=== PATIENT | female | born 1940 | race Caucasian/White ===

== ENCOUNTER 2019-06-28 08:53 | Emergency (ER) | payer OTHER ==
--- OUTSIDE RECORDS SUMMARY | 2019-06-28 08:55 | XMS REPORT | Summary of Care ---
:1940 Author Name RICK HOYOS M.D. Address Unavailable Unavailable , Care Team Providers Name Role Phone RICK HOYOS M.D. Unavailable Unavailable SOHA PAIGE LA, RICK Lopez Unavailable Unavailable Unavailable Unavailable Unavailable Functional Status Name Dates Details Functional status health issues are not documented Status: Name Dates Details Cognitive status health issues are not documented Status: Problems Name Dates Details Postoperative hypothyroidism (244.0, E89.0) Status: Active Dyslipidemia (272.4, E78.5) Status: Active Medication management (V58.69, Z79.899) Status: Active Anemia (285.9, D64.9) Status: Active Hypothyroidism (244.9, E03.9) Status: Active Medications Name Dates Details FLUoxetine HCl - 20 MG Oral Tablet Refills: 0 Active Irbesartan TABS Refills: 0 Active Feosol TABS Refills: 0 Active Caltrate 600+D3 Soft CHEW Refills: 0 Active Aspirin TABS Refills: 0 Active Synthroid TABS Refills: 0 Active Liothyronine Sodium 5 MCG Oral Tablet Refills: 0 Active Rosuvastatin Calcium 10 MG Oral Tablet Refills: 0 Active Fenofibric Acid TABS Refills: 0 Active Feosol TABS Refills: 0 Active Vitamin C CAPS Refills: 0 Active Vitamin D-3 CAPS Refills: 0 Active FLUoxetine HCl - 20 MG Oral Capsule TAKE 1 CAPSULE AT BEDTIME Quantity: 90 Refills: 1 RICK HOYOS M.D. Start : 16-May-2018 Active Levothyroxine Sodium 125 MCG Oral Tablet TAKE 1 TABLET DAILY ONE HOUR BEFORE EATING BREAKFAST Quantity: 90 Refills: 1 RICK HOYOS M.D. Start : 16-May-2018 Active Liothyronine Sodium 5 MCG Oral Tablet TAKE 1 TABLET DAILY Quantity: 90 Refills: 1 RICK HOYOS M.D. Start : 01-Oct-2018 Active Rosuvastatin Calcium 10 MG Oral Tablet TAKE 1 TABLET DAILY. Quantity: 90 Refills: 1 RICK HOYOS M.D. Start : 16-May-2018 Active Fenofibric Acid 135 MG Oral Capsule Delayed Release TAKE 1 TABLET BY MOUTH DAILY Quantity: 90 Refills: 1 RICK HOYOS M.D. Start : 16-May-2018 Active Irbesartan-hydroCHLOROthiazide 150-12.5 MG Oral Tablet TAKE 1 TABLET DAILY Quantity: 90 Refills: 0 RICK HOYOS M.D. Start : 16-May-2018 Active Allergies and Adverse Reactions Name Dates Details No Known Drug Allergies (Allergy) Status: Active Past Medical History Name Dates Details History of depression (V11.8, Z86.59) Status: Resolved History of hay fever (V12.69, Z87.09) Status: Resolved History of hemorrhoids (V13.89, Z87.19) Status: Resolved History of hypertension (V12.59, Z86.79) Status: Resolved History of lung disease (V12.60, Z87.09) Status: Resolved History of thyroid disorder (V12.29, Z86.39) Status: Resolved Procedures Procedure Dates Details History of Thyroidectomy Completed History of Hysterectomy total Completed History of Hemorrhoidectomy Completed History of Lung lobectomy Completed Immunization Name Dates Details Immunizations not documented Family History Name Dates Details Family history of Heart trouble (429.9, I51.9) Comments: Family History Status: Active Family history of hypertension (V17.49, Z82.49) Comments: Family History Status: Active Family history of malignant neoplasm (V16.9, Z80.9) Comments: Family History Status: Active Family history of cerebrovascular accident (CVA) (V17.1, Z82.3) Comments: Family History Status: Active Social History Name Dates Details Unknown if ever smoked Vital Signs Date Test Result Details No Known Vitals to report Results Date Description Value Details Results not documented Plan of Care Name Dates Details Planned Observations Planned Goals not documented Planned Encounters Appointment; RICK HOYOS M.D. On: 14-May-2019 8:00 Interventions Provided Medication ChangesIrbesartan-hydroCHLOROthiazide 150-12.5 MG Oral Tablet - Renew Instructions Name Dates Details Instructions not documented Encounters Appointment; RICK HOYOS M.D. On: 15-May-2018 7:45 Encounter Diagnosis: Problem not documented Appointment; RICK HOYOS M.D. On: 15-May-2018 9:00 Encounter Diagnosis: Problem not documented Appointment; RICK HOYOS M.D. On: 11-Sep-2018 9:00 Encounter Diagnosis: Problem not documented
[2019-06-28] MEDS ORDERED: PANTOPRAZOLE 40 MG INJ ONE (09:10)
[2019-06-28] MEDS ORDERED: NA CHLORIDE 0.9% 1,000 ML ONE (09:10)
[2019-06-28 09:18] LABS: Absolute Lymphocytes (CBC) 1.1 K/uL (0.7-4.9); Basophils % 0.6 % (0-1.3); Hematocrit 16.5 % (36.0-45.0); Lymphocytes % 14.2 % (15.3-44.8); MPV 9.2 fL (7.6-11.3); RBC Red Blood Cell Count 1.92 M/uL (3.86-4.86)
[2019-06-28 09:25] LABS: Protime INR 1.22
[2019-06-28 09:36] LABS: ALT/SGPT 18 U/L (12-78); AST/SGOT 15 U/L (15-37); Alkaline Phosphatase 24 U/L (45-117); BUN Blood Urea Nitrogen 70 mg/dL (7-18); Bicarbonate 22 mmol/L (21-32); Bilirubin Direct < 0.1 mg/dL (0-0.2); Bilirubin Total 0.2 mg/dL (0.2-1.0); Glucose Level 115 mg/dL (74-106); Magnesium 1.9 mg/dL (1.8-2.4); NT PRO-BNP 523 pg/mL (<450); Potassium 3.4 mmol/L (3.5-5.1); Protein, Total 5.6 g/dL (6.4-8.2); Sodium Level 140 mmol/L (136-145); Troponin (Emerg Dept Use Only) 0.02 ng/mL (0.0-0.045)
--- NOTE | 2019-06-28 09:38 | RAD REPORT ---
EXAM DESCRIPTION: [facility] Single View06/28/2019 9:21 am CLINICAL HISTORY: Chest pain COMPARISON: 2012 FINDINGS: Mild right upper lobe opacities are without significant change probably scarring The lungs appear clear of acute infiltrate. The heart is normal size IMPRESSION: No acute abnormalities displayed
[2019-06-28] MEDS ORDERED: PANTOPRAZOLE INJ 80 MG in NA CHLORIDE 0.9% 250 ML IV SCH (10:00)
--- NOTE | 2019-06-28 10:18 | RAD REPORT ---
EXAM DESCRIPTION: CT - Abdomen Pelvis W Contrast - 06/28/2019 10:00 am CLINICAL HISTORY: Abdominal pain/rectal bleeding COMPARISON: none. TECHNIQUE: Computed axial tomography of the abdomen pelvis was obtained. 100 cc Isovue-300 was admin istered intravenously. Oral contrast was not requested which limits evaluation of bowel. All CT scans are performed using dose optimization technique as appropriate and may include automated exposure control or mA/KV adjustment according to patient size. FINDINGS: The liver, spleen, pancreas, and adrenal appear unremarkable. Small renal cysts. There is no evidence of diverticulitis. Normal appendix Moderate hiatal hernia Cholecystectomy. Hysterectomy. Small umbilical hernia IMPRESSION: No acute abnormality is displayed.
--- NOTE | 2019-06-28 10:39 | EDPHYS ---
Physician Documentation [facility] Name: Aurea Londono Age: 78 yrs Sex: Female : 1940 Arrival Date: 06/28/2019 Time: 08:54 Bed 4 Private MD: ED Physician Raul Peoples HPI: 06/28 09:01 This 78 yrs old Female presents to ER via Unassigned with complaints of kdr Rectal Bleeding. 09:01 The patient presents to the emergency department with bleeding from the rectum/anus, kdr that is moderate. Onset: The symptoms/episode began/occurred suddenly, at 03:30. Context: the patient has no known special context relating to the rectal area complaint(s). Modifying factors: The symptoms are alleviated by nothing, The symptoms are aggravated by nothing. Associate signs and symptoms: Pertinent positives: abdominal pain in the abdomen diffusely, lower GI bleeding, dark red, vomiting, stomach contents, Pertinent negatives: fever. The patient has not experienced similar symptoms in the past. The patient has not recently seen a physician. 09:01 The patient states that she has been through multiple medical problems and has never kdr felt this bad before. States that she feels weak and nauseated. She also c/o chest pain and pain across her shoulders. 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 - Social history:: Smoking status: Patient/guardian denies using tobacco. - Ebola Screening: : No symptoms or risks identified at this time. ROS: 09:01 Constitutional: Negative for fever, chills, and weight loss, Eyes: Negative for injury, kdr pain, redness, and discharge, ENT: Negative for injury, pain, and discharge, Neck: Negative for injury, pain, and swelling, Cardiovascular: Negative for chest pain, palpitations, and edema, Respiratory: Negative for shortness of breath, cough, wheezing, and pleuritic chest pain, Back: Negative for injury and pain, : Negative for injury, bleeding, discharge, and swelling, MS/Extremity: Negative for injury and deformity, Skin: Negative for injury, rash, and discoloration, Neuro: Negative for headache, weakness, numbness, tingling, and seizure activity. Psych: Negative for depression, anxiety, suicide ideation, homicidal ideation, and hallucinations, Allergy/Immunology: Negative for hives, rash, and allergies, Endocrine: Negative for neck swelling, polydipsia, polyuria, polyphagia, and marked weight changes, Hematologic/Lymphatic: Negative for swollen nodes, abnormal bleeding, and unusual bruising. 09:01 Abdomen/GI: Positive for abdominal pain, nausea and vomiting, abdominal cramps, rectal pain, rectal bleeding. Exam: 09:01 Constitutional: This is a well developed, well nourished patient who is awake, alert, kdr and in no acute distress. Head/Face: Normocephalic, atraumatic. Eyes: Pupils equal round and reactive to light, extra-ocular motions intact. Lids and lashes normal. Conjunctiva and sclera are non-icteric and not injected. Cornea within normal limits. Periorbital areas with no swelling, redness, or edema. Neck: Trachea midline, no thyromegaly or masses palpated, and no cervical lymphadenopathy. Supple, full range of motion without nuchal rigidity, or vertebral point tenderness. No Meningismus. Chest/axilla: Normal chest wall appearance and motion. Nontender with no deformity. No lesions are appreciated. Cardiovascular: Regular rate and rhythm with a normal S1 and S2. No gallops, murmurs, or rubs. Normal PMI, no JVD. No pulse deficits. Respiratory: Lungs have equal breath sounds bilaterally, clear to auscultation and percussion. No rales, rhonchi or wheezes noted. No increased work of breathing, no retractions or nasal flaring. Back: No spinal tenderness. No costovertebral tenderness. Full range of motion. Skin: Warm, dry with normal turgor. Normal color with no rashes, no lesions, and no evidence of cellulitis. MS/ Extremity: Pulses equal, no cyanosis. Neurovascular intact. Full, normal range of motion. Neuro: Awake and alert, GCS 15, oriented to person, place, time, and situation. Cranial nerves II-XII grossly intact. Motor strength 5/5 in all extremities. Sensory grossly intact. Cerebellar exam normal. Normal gait. Psych: Awake, alert, with orientation to person, place and time. Behavior, mood, and affect are within normal limits. 09:01 Abdomen/GI: Inspection: abdomen appears normal, Bowel sounds: diminished, in all quadrants, Palpation: soft, nontender, in all quadrants, Rectal exam: rectal tone normal, Stool: grossly bloody, guaiac positive, hemorrhoid(s), external, with pain. Vital Signs: 09:00 BP 126 / 55; Pulse 109; Resp 18; Temp 98; Pulse Ox 100% ; sv 09:30 BP 132 / 52; Pulse 96; Resp 13; Pulse Ox 100% ; sv 10:29 BP 117 / 48; Pulse 106; Resp 12; Pulse Ox 100% ; sv 11:00 BP 115 / 58; Pulse 103; Resp 15; Pulse Ox 100% ; sv 12:03 BP 119 / 51; Pulse 106; Resp 12; Pulse Ox 100% ; sv 12:24 Temp 98.1; em1 13:00 BP 105 / 48; Pulse 112; Resp 19; Pulse Ox 100% ; sv 13:20 BP 107 / 53; Pulse 110; Resp 12; Temp 98.9; Pulse Ox 100% on R/A; sv 13:30 BP 104 / 52; Pulse 109; Resp 13; Temp 98.5; Pulse Ox 100% on R/A; sv MDM: 09:01 Data reviewed: vital signs, nurses notes, lab test result(s), EKG, radiologic studies. kdr Counseling: I had a detailed discussion with the patient and/or guardian regarding: the historical points, exam findings, and any diagnostic results supporting the discharge/admit diagnosis, lab results, radiology results, the need to transfer to another facility. 10:39 Patient medically screened. kdr 06/28 08:58 Order name: Basic Metabolic Panel kdr 06/28 08:58 Order name: CBC with Diff kdr 06/28 08:58 Order name: LFT's kdr 06/28 08:58 Order name: Magnesium kdr 06/28 08:58 Order name: NT PRO-BNP kdr 06/28 08:58 Order name: PT-INR kdr 06/28 08:58 Order name: Troponin (emerg Dept Use Only) kdr 06/28 08:58 Order name: Type And Screen kdr 06/28 09:30 Order name: CBC with Automated Diff; Complete Time: 10:34 EDMS 06/28 09:31 Order name: Protime (+INR); Complete Time: 10:34 EDMS 06/28 09:36 Order name: Basic Metabolic Panel; Complete Time: 10:34 EDMS 06/28 09:36 Order name: Liver (Hepatic) Function; Complete Time: 10:34 EDMS 06/28 09:36 Order name: Troponin (Emerg Dept Use Only); Complete Time: 10:34 EDMS 06/28 09:36 Order name: NT PRO-BNP; Complete Time: 10:34 EDMS 06/28 08:58 Order name: XRAY Chest (1 view) kdr 06/28 08:58 Order name: EKG; Complete Time: 09:01 kdr 06/28 08:58 Order name: Cardiac monitoring; Complete Time: 09:17 kdr 06/28 08:59 Order name: CT Abd/Pelvis - IV Contrast Only kdr 06/28 09:36 Order name: Magnesium; Complete Time: 10:34 EDPR 06/28 09:42 Order name: Occult Blood--Ancillary eb 06/28 09:42 Order name: RAD; Complete Time: 10:34 EDMS 06/28 09:50 Order name: Type and Screen EDPR 06/28 10:13 Order name: ABO/RH no charge; Complete Time: 10:34 EDMS 06/28 10:19 Order name: CT; Complete Time: 10:34 EDMS 06/28 10:35 Order name: PRBC kdr 06/28 11:28 Order name: Occult Blood--Ancillary; Complete Time: 11:35 EDMS 06/28 08:58 Order name: EKG - Nurse/Tech; Complete Time: 09:17 kdr 06/28 08:58 Order name: IV Saline Lock; Complete Time: 09:17 kdr 06/28 08:58 Order name: Labs collected and sent; Complete Time: 09:17 kdr 06/28 08:58 Order name: O2 Per Protocol; Complete Time: 09:17 kdr 06/28 08:58 Order name: O2 Sat Monitoring; Complete Time: 09:18 kdr 06/28 09:33 Order name: Labs - recollect needed: ABO RH no charge; Complete Time: 10:08 eb Administered Medications: 09:16 Drug: NS 0.9% 500 ml Route: IV; Rate: bolus; Site: right hand; sv 10:00 Follow up: Response: No adverse reaction; IV Status: Completed infusion; IV Intake: sv 500ml 09:16 Drug: ProTONIX 80 mg Route: IVP; Site: right hand; sv 10:12 Follow up: Response: No adverse reaction sv 10:12 Drug: ProTONIX 8 mg/hr Route: IV; Rate: 25 ml/hr; Site: right hand; sv 15:00 Follow up: Response: No adverse reaction; IV Status: Infusion continued upon transfer sv 13:52 Drug: Zofran 4 mg Route: IVP; Site: right hand; sv 14:20 Follow up: Response: No adverse reaction; Marked relief of symptoms; Nausea is decreasedsv Point of Care Testing: Guaiac: 09:00 Stool Guaiac: Positive; Stool Hemoccult Control: Pass; sv 09:[address] Peoples sv Disposition: 06/28/19 10:[address] [facility]. Diagnosis is Lower GI BLeed. - Reason for transfer: Higher level of care. - Accepting physician is [facility]. - Condition is Fair. - Problem is new. - Symptoms have improved. Signatures: Dispatcher [employer] Deborah Parker RN RN sv Raul Peoples MD MD kdr Kristel Guadarrama Corrections: (The following items were deleted from the chart) 15:15 10:39 06/28/2019 10:[address] [facility]. Diagnosis is sv Lower GI BLeed. Reason for transfer: Higher level of care. Accepting physician is [facility]. Condition is Fair. Problem is new. Symptoms have improved. kdr
--- NOTE | 2019-06-28 10:39 | ER ---
Nurse's Notes [facility] Name: Aurea Londono Age: 78 yrs Sex: Female : 1940 Arrival Date: 06/28/2019 Time: 08:54 Bed 4 Private MD: Diagnosis: Lower GI BLeed Presentation: 06/28 08:44 Presenting complaint: EMS states: generalized weakness, dark red rectal bleeding, CP, sv RLE pain since 0300 this morning. Initial BP 70/40 HR-120s, IV started with NS bolus, placed in Trendelenburg, BP up to 102/54. Transition of care: patient was not received from another setting of care. Onset of symptoms was June 28, 2019 at 03:00. Risk Assessment: Do you want to hurt yourself or someone else? Patient reports no desire to harm self or others. Initial Sepsis Screen: Does the patient meet any 2 criteria? No. Patient's initial sepsis screen is negative. Does the patient have a suspected source of infection? No. Patient's initial sepsis screen is negative. Care prior to arrival: Medication(s) given: Normal saline infusion, IV initiated. 20 GA, in the right antecubital area. 08:44 Method Of Arrival: EMS: [facility] sv 08:44 Acuity: SANGITA 2 sv Triage Assessment: 08:50 General: Appears in no apparent distress. uncomfortable, Behavior is calm, cooperative, sv appropriate for age. Pain: Complains of pain in right leg and abdomen diffusely Pain currently is 5 out of 10 on a pain scale. Is intermittent. Neuro: Level of Consciousness is awake, alert, obeys commands, Oriented to person, place, time, situation, Moves all extremities. Speech is normal, Reports weakness. Cardiovascular: Rhythm is sinus tachycardia. Cardiovascular: Denies chest pain. Respiratory: Airway is patent Respiratory effort is even, unlabored, Respiratory pattern is regular, symmetrical. GI: Abdomen is flat, black stool noted at anal area and dried up around buttocks Reports rectal bleeding. Derm: Skin is intact, with poor turgor Skin is pale, Skin temperature is cool. 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 - Social history:: Smoking status: Patient/guardian denies using tobacco. - Ebola Screening: : No symptoms or risks identified at this time. Screenin:00 Abuse screen: Denies threats or abuse. Denies injuries from another. Nutritional sv screening: No deficits noted. Tuberculosis screening: No symptoms or risk factors identified. Fall Risk No fall in past 12 months (0 pts). No secondary diagnosis (0 pts). IV access (20 points). Ambulatory Aid- None/Bed Rest/Nurse Assist (0 pts). Gait- Normal/Bed Rest/Wheelchair (0 pts) Mental Status- Oriented to own ability (0 pts). Total Thakkar Fall Scale indicates No Risk (0-24 pts). Assessment: 09:16 Reassessment: Patient appears in no apparent distress at this time. No changes from sv previously documented assessment. Patient and/or family updated on plan of care and expected duration. Pain level reassessed. 10:12 Reassessment: Patient appears in no apparent distress at this time. No changes from sv previously documented assessment. Patient and/or family updated on plan of care and expected duration. Pain level reassessed. Patient is alert, oriented x 3, equal unlabored respirations, skin warm/dry/pink. 12:30 Reassessment: Patient appears in no apparent distress at this time. Patient and/or sg family updated on plan of care and expected duration. Pain level reassessed. Patient is alert, oriented x 3, equal unlabored respirations, skin warm/dry/pink. pt updated attempt to give report to receiving nurse, entry level project coordinator reports that the nurse is unavailable at this time, entry level project coordinator reports we will receive a call back for report, pt and pt family stated understanding. 12:48 Reassessment: Went in to pt's room to have pt sign MOT, pt and family stated that they wanted to go to [facility]. Informed them that [facility] told us that they were at capacity. Family still wanting to go to [facility], informed Dr Peoples. Dr Peoples to bedside to speak with family. 13:05 Reassessment: Pt's son attempting to call her flame hardening machine operator associated with [facility] to get pt transferred to that facility. 13:15 Reassessment: 1st unit of PRBCs started, see blood transfusion flowsheet. 13:15 Reassessment: Patient appears in no apparent distress at this time. Patient and/or sv family updated on plan of care and expected duration. Pain level reassessed. Patient is alert, oriented x 3, equal unlabored respirations, skin warm/dry/pink. Respiratory: Respiratory effort is even, unlabored, Respiratory pattern is regular, symmetrical, Breath sounds are clear bilaterally. 13:30 Reassessment: Patient appears in no apparent distress at this time. No changes from previously documented assessment. Respiratory: Airway is patent Respiratory effort is even, unlabored, Respiratory pattern is regular, symmetrical, Breath sounds are clear bilaterally. 13:45 Reassessment: Patient appears in no apparent distress at this time. No changes from previously documented assessment. Respiratory: Airway is patent Respiratory effort is even, unlabored, Respiratory pattern is regular, symmetrical, Breath sounds are clear bilaterally. 13:56 Reassessment: Family waiting for call backs from the MDs at [facility] regarding transfer. 14:12 Reassessment: Family stated that they would not be able to transfer pt to [facility] because this is not a cardiac issue the pt is having. Family and pt agree to be transferred to [facility]. 14:38 Reassessment: 1st unit of PRBCs checked off with Manpreet from EMS. Copy of blood transfusion flowsheet given to Manpreet as well. Vital Signs: 09:00 BP 126 / 55; Pulse 109; Resp 18; Temp 98; Pulse Ox 100% ; sv 09:30 BP 132 / 52; Pulse 96; Resp 13; Pulse Ox 100% ; sv 10:29 BP 117 / 48; Pulse 106; Resp 12; Pulse Ox 100% ; sv 11:00 BP 115 / 58; Pulse 103; Resp 15; Pulse Ox 100% ; sv 12:03 BP 119 / 51; Pulse 106; Resp 12; Pulse Ox 100% ; sv 12:24 Temp 98.1; em1 13:00 BP 105 / 48; Pulse 112; Resp 19; Pulse Ox 100% ; sv 13:20 BP 107 / 53; Pulse 110; Resp 12; Temp 98.9; Pulse Ox 100% on R/A; sv 13:30 BP 104 / 52; Pulse 109; Resp 13; Temp 98.5; Pulse Ox 100% on R/A; sv ED Course: 08:44 Maintain EMS IV. Dressing intact. Good blood return noted. Site clean \\T\\ dry. Gauge \\T\\ sv site: 20G R AC. Flushed right antecubital with 5 ml normal saline. 08:54 Patient arrived in ED. sg 08:56 Raul Peoples MD is Attending Physician. kdr 09:00 Initial lab(s) drawn, by ED staff, sent to lab. T\\T\\S collected, blood band applied to sv patient. 09:00 Arm band placed on. sv 09:00 Patient has correct armband on for positive identification. Placed in gown. Bed in low sv position. Call light in reach. Side rails up X2. panel monitor on. Pulse ox on. NIBP on. Door closed. Warm blanket given. Pillow given. Head of bed elevated. 09:16 Deborah Adams RN is Primary Nurse. sv 09:18 X-ray(s) taken. sv 09:20 X-ray completed. Portable x-ray completed in exam room. Patient tolerated procedure mh1 well. 09:20 Triage completed. sv 09:36 Basic Metabolic Panel Sent. sv 09:36 CBC with Diff Sent. sv 09:36 LFT's Sent. sv 09:37 Magnesium Sent. sv 09:37 NT PRO-BNP Sent. sv 09:37 PT-INR Sent. sv 09:37 Troponin (emerg Dept Use Only) Sent. sv 10:08 Occult Blood--Ancillary Sent. sv 10:08 CT Abd/Pelvis - IV Contrast Only Sent. sv 10:12 Type And Screen Sent. sv 10:13 Awaiting radiology results. sv 10:13 XRAY Chest (1 view) Sent. sv 10:44 initiated a transfer with Marizol from the [facility] Transfer center. eb 10:49 per Marizol at [facility] transfer is declined due to them being at capacity. eb 10:50 initiated a transfer with Kristel Alford from the [facility]. eb 10:57 Consent for blood and/or blood product transfusion explained by staff, explained by sv physician, signed by patient. 11:18 transfer approval from receiving facility. sv 11:33 connected the hospitalist wage conciliator for [facility] with Dr. Peoples for patient eb transfer consultation. 12:07 administrative approval given by Kristel Alford/ patient has been accepted to [facility] Be 7cb rm 30/ Dr. Johnson has accepted the patient in transfer/ report to be called to [phone]. 13:21 Warm blanket given. sv 13:52 PRBC Sent. sv 14:41 No provider procedures requiring assistance completed. Patient transferred, IV remains sv in place. intact. Administered Medications: 09:16 Drug: NS 0.9% 500 ml Route: IV; Rate: bolus; Site: right hand; sv 10:00 Follow up: Response: No adverse reaction; IV Status: Completed infusion; IV Intake: sv 500ml 09:16 Drug: ProTONIX 80 mg Route: IVP; Site: right hand; sv 10:12 Follow up: Response: No adverse reaction sv 10:12 Drug: ProTONIX 8 mg/hr Route: IV; Rate: 25 ml/hr; Site: right hand; sv 15:00 Follow up: Response: No adverse reaction; IV Status: Infusion continued upon transfer sv 13:52 Drug: Zofran 4 mg Route: IVP; Site: right hand; sv 14:20 Follow up: Response: No adverse reaction; Marked relief of symptoms; Nausea is decreasedsv Point of Care Testing: Guaiac: 09:00 Stool Guaiac: Positive; Stool Hemoccult Control: Pass; sv 09:[address] Peoples sv Intake: 10:00 IV: 500ml; Total: 500ml. sv Outcome: 10:39 ER care complete, transfer ordered by MD. kdr 12:41 Transferred by ground EMS to [facility], Transfer form completed. sv X-rays sent w/ patient. Note: Report given to Lavern COFFMAN 12:41 Condition: stable 12:41 Instructed on the need for transfer. 15:15 Patient left the ED. sv Signatures: Deborah Adams RN RN sv Raul Boykin RN RN Raul Peoples MD MD [facility] Dyan Garcia 1 Maximiliano, Mack johnson1 Kristel Guadarrama Corrections: (The following items were deleted from the chart) 13:27 08:50 GI: Abdomen is flat, Reports rectal bleeding, sv sv
[2019-06-28] MEDS ORDERED: NA CHLORIDE 0.9% 250 ML ONE (13:00)
[2019-06-28] MEDS ORDERED: ONDANSETRON 4 MG/2 ML VIAL ONE (13:49)
--- NOTE | 2019-06-28 14:03 | EKG ---
Test Date: 2019-06-28 Test Time: 08:58:10 Television Production Clerk: ABRIL MEASUREMENT RESULTS: Intervals: Rate: 109 FL: 164 QRSD: 86 QT: 348 QTc: 468 [place]: P: 52 FL: 164 QRS: 59 T: 44 INTERPRETIVE STATEMENTS: Sinus tachycardia Left ventricular hypertrophy Nonspecific ST abnormality Cannot rule out inferior infarct Abnormal ECG Compared to ECG 11/24/2010 07:21:34 ST (T wave) deviation now present Sinus rhythm no longer present Possible infarct is now present Electronically Signed On 06-28-19 14:03:34 PARIMUTUEL CLERK by Ranjith Schwarz
[2019-06-28 19:58] VITALS: O2SAT 100
[2019-06-28 20:17] VITALS: BP 130/59; TEMP 97.6
== END 2019-06-28 15:15 | disposition short-term general hospital (02) ==
LOC: ER 08:53
PROC: 30233N1 Transfusion of Nonautologous Red Blood Cells into Peripheral Vein, Percutaneous Approach (ICD-10-PCS; principal; 2019-06-28)
DX: K92.2 Gastrointestinal hemorrhage, unspecified (principal); E78.5 Hyperlipidemia, unspecified; F32.9 Major depressive disorder, single episode, unspecified; Z79.01 Long term (current) use of anticoagulants; Z95.818 Presence of other cardiac implants and grafts; Z95.4 Presence of other heart-valve replacement
CPT/HCPCS: 96365; 96361; 93005; 85025; 80048; 36415; 86900; 83735; 86850; 85610; 86901; 80076; 82272; 84484; 83880; 74177; 71045; 96375; 99285; 96366; 36430; Q9967; C9113 ×2; P9016; J7030 ×3; J2405

== ENCOUNTER 2020-11-22 21:18 | Emergency (ER) | payer OTHER ==
--- OUTSIDE RECORDS SUMMARY | 2020-11-22 21:24 | XMS REPORT | Continuity of Care Document ---
:1940 Author Organization [facility] t Address [address] [place] [address] Care Team Providers Name Role Phone Melissa Dover MD Primary Care Physician Karan NOBLES Attending Clinician Unavailable Mauro Felipe DO Attending Clinician Jagjit Sunshine MA Attending Clinician Unavailable ELADIO Attending Clinician Unavailable Melissa Dover MD Attending Clinician Jagjit Woody MD. Attending Clinician Emanuel Coe MD Attending Clinician Liana COFFMAN Attending Clinician Unavailable Paul Coyne MD Attending Clinician Lisandro COFFMAN Attending Clinician Unavailable Jesse PAIGE Attending Clinician Tarsha HOGAN Attending Clinician Jay Attending Clinician Unavailable Nelia NOBLES Attending Clinician Unavailable Karan NOBLES Attending Clinician Unavailable System, Not In Attending Clinician Unavailable SOHA Attending Clinician Unavailable CHAVO KLEIN Attending Clinician Unavailable TEJ Attending Clinician Unavailable PRISCILLA Admitting Clinician Unavailable DORETHA Admitting Clinician Unavailable NIKO Admitting Clinician Unavailable Payers Payer Name Policy Type Policy Effective Date Expiration Date Sour ce Number UHC MEDICAREUHC [id number] 2020 [facility] 00:00:00 Rossi casiano [id number] 2020-Present Problems Condition Condition Condition Status Onset Resolution Last Treating Co mments Source Name Details Category Date Date Treatment Clinician Date Jody Vera Disease Active H keri ia ia 11-10 Methodi 00:00: st 00 Stage 3a Stage 3a Disease Active Elaynet on chronic chronic 11-10 Methodi kidney kidney 00:00: st disease disease 00 COPD COPD Disease Active Overview: Kenna n (chronic (chronic 10-28 Formattin Met hodi obstructiv obstructiv 00:00: g of this st e e 00 note pulmonary pulmonary might be disease) disease) different from the original. Significa nt smoking history: atleast 60 pack years. Quit in the 90s, though she cannot recall the year. Sees pulm annually and gets annual CT Chest. On Bevespi inhaler. CTA (02/2020): Moderate concentri c thickenin g of the bronchial and bronchiol ar quigley diffusely . Traction bronchiec tasis and bronchiol ectasis within the posterior aspect of the right upper lobe. Adjacent calcified surgical scar/mate rial compatibl e with right resection in that location. Moderate diffuse mosaic attenuati on.Last Assessmen t & Plan: Formattin g of this note might be different from the original. Sees pulm annually. Patient to sign medical release for me to see documenta tion from Dr. Cordero. [facility] Healthcare Disease Active Overview : [facility] 10-27 Formattin Methodi e e 00:00: g of this note might be different from the original. [facility] ce: [place] py: --------- - Eye exam: Mammogram (increase d risk of breast cancer: Personal history of breast, ovarian, tubal, or peritonea l cancer, Family history of breast, ovarian, tubal, or peritonea l cancer, Ancestry (eg, Ashkenazi Lutheran) associate d with BRCA1 or 2 mutations , Known carrier of a pathogeni c mutation for a hereditar y breast and ovarian cancer syndrome in self or relative, Previous breast biopsy indicatin g high-risk lesion (eg, atypical hyperplas ia), Radiother apy to the chest between age 11 and age 30): -------- 2008??? She was age 68 Pap/pelvi c exam(21-2 9 q 3 yrs without HPV co-testin g for general screening ; 30-65 q 5 yrs if negative HPV co- testing; otherwise every 3 yrs)): --------- DEXA (starting at age 65, unless they have RF steroids, alcohol, RA): ------- Lung cancer screening (low-dose computed tomograph y (LDCT) in adults aged 50 to 80 years who have a 20 pack-year smoking history and currently smoke or have quit within the past 15 years): Td (q10 yrs, one-time TDaP booster): PCV13 (>65 or CSF, cochlears , SCD, asplenia, immunosup pressed, CKD): PPSV23 (>65 or heart dz, lung dz, DM, EtOH, tobacco, after PCV 13): Influenza (yearly): Shingrix (50+): HBV (HCV, diabetics ): Hep C Screening (Age 18-79): HIV:Eye exam:[place] al:Skin:D epression Screening :Activity Level:Nut rition:Ad vanced care Planning: LMP:Sexua l History:D oes patient want STD screening ?: Stage 3b Stage 3b Disease Active Overview: Pete lizbaeth chronic chronic 3-30 Formattin Metho di kidney kidney 00:00: g of this st disease disease 00 note might be different from the original. Saw a nephrolog ist one time at [facility].Pr eviously has had elevated creatinin e. Last Assessmen t & Plan: Formateli g of this note might be different from the original. -Recheck CMP, UA, Urine protein, Urine Creatinin e, CBC for anemia-Wi ll send to nephrolog y if results show she is verging on CKD stage 4 Insomnia Insomnia Disease Active 2019-07 Overview: Pete barone 0-20 Formattin Methodi 00:00: g of this st 00 note might be different from the original. States she has trouble staying asleep. Only sleeps for an hour or two. Started taking her husbands clonazepa m and now is sleeping through the night. The hour before she goes to bed she takes a shower, takes her pills, and watches TV until she gets sleepy. Sometimes she watches bed in her bed or downstair s in her chair. She falls alseep for the first hour then wakes up and her mind runs and she can't sleep. She has tried a [employer] sleep aid which worked for a week.____ ___She states she usually only sleeps 30 minutes, then is awake for three hours. She then falls asleep for about an hour but wakes up again. She finally is able to fully fall asleep around 5 am. She takes OTC melatonin nightly (she cannot recall dose but states it is more than 10 mg). Bedtime routine: showers, no screens in bed, does not read in bed Last Assessmen t & Plan: Formattin g of this note might be different from the original. -Proper sleep hygiene reinforce d-Will do trial of trazodone 25 mg nightly. Patient counseled on adverse effects of medicatio n and advised to be careful about orthostat ic blood pressure drops by getting up out of bed or from a sitting position slowly. Coronary Coronary Disease Active [place] on stent stent 04-13 Methodi restenosis restenosis 00:00: st 00 S/P S/P Disease Active [place] carotid carotid 04-02 Methodi endarterec endarterec 00:00: st [place] 00 Hyperglyce Hyperglyce Disease Active 2020- H keri soriano christie 03-24 Methodi 00:00: st 00 Subclavian Subclavian Disease Active Overview : [place] artery artery 03-20 Formattin Methodi stenosis, stenosis, 00:00: g of this s t left left 00 note might be different from the original. Added automatic ally from request for surgery [id number] Internal Internal Disease Active Overview: [facility] carotid carotid 03-20 Formattin Metho di artery artery 00:00: g of this st stenosis, stenosis, 00 note left left might be different from the original. 10/27/2020 She did left carotid to subclavia n bypass grafting and endartere ctomy was preformed in March 2020. Dr Crenshaw is planning to due repeat carotid ultrasoun d at her next follow up in six months. Last Assessmen t & Plan: Formattin g of this note might be different from the original. Continue ASA/Stati n Not on plavix because of history of bleeding. Left Left Disease Active [place]is subclavian subclavian 03-18 Me thodi artery artery 00:00: st occlusion occlusion 00 H/O: H/O: Disease Active Overview: Kenna kaplan hysterecto hysterecto 03-03 Formattin Methodi my my 00:00: g of this st 00 note might be different from the original. Was previousl y on premarin but is not how fluoxetin e. Thyroid Thyroid Disease Active Overview: Elayne ton cancer cancer 03-03 Formattin Methodi 00:00: g of this st 00 note might be different from the original. Has radioacti ve iodine at [facility]. She has been on thyroid medicine since her early 30s. Last time she had blood work they decreased her dose and she feels this isnt adequate. She reports getting headaches and a bone burning. Denies fatigue, weight gain, leg swelling, hair loss. Reports dry skin due to age. Takes levothyro xine 112 mcg and cytomel 5 mcg. On blood work TSH is low at 0.034. At her last visit we told her to stop the cytomel and continue the synthroid . She currently is only synthroid . She reports a little bit of weight loss Denies diaphores is, palpitati ons, diarrhea, heat intoleran ce. __10/27/29 21She is not sure what type of thyroid cancer she had. She is currently taking syntrhoid 112 mcg daily. States she has no energy and she feels like its because her thyroid dose is too low. States she sometimes gets constipat ed. Last Assessmen t & Plan: Formattin g of this note might be different from the original. -Recheck TSH, FT4 Essential Essential Disease Active Overview: [place]ouris hypertensi hypertensi 03-03 Formattin Methodi on on 00:00: g of this st 00 note might be different from the original. Hypertens ion:She has been taking blood pressure medicine for over ten years. She has been on Lisinopri l HCTZ 05/24. Takes blood pressure at night at home. Home BP's: 130s systolicM ed side effects: none reportedS ymptoms: denies dizziness , blurry vision, cp, orthopnea , corbin, or le edema; + headaches , SOB Tod ay she needs refills for lisinopri l and HCTZ. Takes medicatio ns in the evening. Reports home blood pressures are in the 130s systolic. Denies any dizziness , blurry vision, chest pain, shortness of breath, headache. he last did a blood pressure log in June. She brought her blood pressure log to Dr. Crenshaw and he did not make any changes to her medicatio ns. She is still on lisinopri l-HCTZ 10-12.5 mg daily.Las t Assessmen t & Plan: Formattin g of this note might be different from the original. -Blood pressure is controlle d today in the office. 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 Had lobectomy in [address] Cordero once a year. Saw Dr. Cordero last week. She started an inhaler last year. She was told to come back in 1 year to see him again. Last Assessmen t & Plan: Formattin g of this note might be different from the original. -Asked for her to get records from Dr. Cordreo office Mixed Mixed Disease Active Overview: [place] hyperlipid hyperlipid 03-03 Formattin Methodi emia emia 00:00: g of this st 00 note might be different from the original. Last had lipids check a year ago.Takes crestor 10 mg and trilipix. Denies any muscle soreness. Last Assessmen t & Plan: Formattin g of this note might be different from the original. -Check lipid panel. If LDL>70, will increase lipitor to high intensity Coronary Coronary Disease Active Overview: [place] artery artery 04 Formattin Methodi disease disease 00:00: g of this st involving involving 00 note manzanita manzanita might be coronary coronary different artery of artery of from the manzanita manzanita original. heart with heart with Sees Dr. monica Mcgregor. pectoris pectoris Had a synergy stent placed in February of 2019 after she was found to have restenosi s of stent in RCA.[facility] (02/2019): Severe 95 to 98% in-stent restenosi s involving the stent in the proximal and ostial dominant right coronary artery. There is a hazy area of calcified stenosis in the proximal circumfle x at the ostium. The actual degree of stenosis cannot be quantifie d on angiograp hy. The LAD is calcified which shows mild nonocclus kar diseased. Stent placed to right carotid artery in 05/2019 for asymptoma tic REJI stenosis (85-90% on right side prior to stenting) . Also had 50% stenosis on L ICA noted on angio. Stenting complicat ed by post procedure hypotensi on which resolved within 24-48 hrs. Patient discharge d home with recommend ations to continue ASA/Plavi x which she was already taking for her heart stent. She states she took this medicine until the prescript ion ran out. She remains on crestor 10 mg daily. Unclear if she was ever on a higher dose. Now only on Aspirin now. She knows when she has exerted too much and gets a pain into her shoulder and back and chest. This occurs almost daily with going up and down stairs. Last for five minutes. She does not have any nitrogylc sourav. She has not seen Dr. mcgregor since 05/2019 and does not have a follow up appointme nt with him for another couple of months. he was seen by Dr. Woody in early February and admitted for [facility]. She was found to have in stent restenosi s of the proximal RCA. A 50% to 60% stenosis in the distal common and proximal internal carotid artery and 70% stenosis of the external carotid artery. She is planned to undergo left carotid endartere ctomy and left carotid to subclavia n bypass grafting by CV surgery on March 31. For her RCA she will likely need PTCA and radiation therapy per her [facility] report. Pat ient saw Dr. Woody in March for attempted PTCA of RCA, however angioplas ty was unsuccess ful. She did left carotid to subclavia n bypass grafting and endartere ctomy was preformed in March . She feels better than she has in years. Currently taking ASA, statin, fenofibra te. Denies any chest pain. 10/27aw cardiolog y last week. She was told she may be started on a beta rizwan at some point but her cardiolog ist didn't want to start it yet. No medicatio n changes were made. Last Assessmen t & Plan: Formattin g of this note might be different from the original. Continue ASA, statin, fenofibra te. Not on plavix because of history of bleeding. Requested patient gets her records from cardiolog y sent to me. GI bleed GI bleed Disease Active 2019-0 Overview: Pete barone 8 Formattin Methodi 00:00: g of this note might be different from the original. e week after she had her stent placed she started throwing up and having rectal bleeding. Went to hospital was found to have low blood pressure. Received transfuse d blood and was transferr ed to [facility]. There she had emergent scope, her EGD showed a single bleeding angiodysp lastic lesion in the duodenum. Treated with bipolar cautery. Started on PPI but has since stopped. ASA and plavix were stopped for four days during this hospital stay. She has not followed up with Dr. Mcgregor (cardiolo gy) about this and never followed up with a gastroent erologist .Denies any melena or hematoche robert. ___ Mir states food upsets her stomach sometimes if its spicy. She reports she has had black stools with taking ferrous sulfate. Denies any blood in her stools. She never followed up with GI after her hospitali zation. Last Assessmen t & Plan: Formattin g of this note might be different from the original. -Referral to GI-Check CBC and iron studies Iron Iron Disease Active Overview: [place] deficiency deficiency 03-03 Formattin Methodi anemia anemia 00:00: g of this note might be different from the original. States she had many studies down for this but nothing was found. Last colonosco py was five years ago. Polyps were present. On Ferrous sulfate 325 mg BIDLast Assessmen t & Plan: Formattin g of this note might be different from the original. -Recheck anemia studies GI bleed GI bleed Disease Active 2018[facility]07 [facility] [place] [id number] [facility] History of History of Problem Resolve [facility] depression depression d [facility] History of History of Problem Resolve [facility] lung lung d ity of disease disease [facility] History of History of Problem Resolve [facility] hemorrhoid hemorrhoid d it y of s s [facility] History of History of Problem Resolve [facility] hypertensi hypertensi d it y of on on [facility] History of History of Problem Resolve [facility] thyroid thyroid d ity of disorder disorder [facility] Postoperat Postoperat Problem Active U nivers [place] it[place] of hypothyro[place]othy[place] dis[place] dism [facility]ici [facility] Dyslipidem Dyslipidem Problem Active U nivers ia ia [facility]y [facility] [place] [facility] Anemia Anemia Problem Active [facility] [place] [facility] Encounter Encounter Problem Active Uni vers for for ity of screening screening [place] lung for lung Physic i cancer cancer ans Essential Essential Problem Active Uni vers hypertensi hypertensi it y of on on [facility] Hypothyroi Hypothyroi Problem Active U nivers dism dism [facility] [place] [facility] Medication Medication Problem Active U nivers management management it y [facility] [place] [facility] Carotid Carotid Disease Resolve 2020-10-28 2020-10-28 Rodriguez artery artery d 03-03 00:00:00 11:54:08 Method i disease disease 00:00: st 00 Allergies, Adverse Reactions, Alerts This patient has no known allergies or adverse reactions. Family History Family Member Diagnosis Comments Start Date Stop Date Source Unknown Family history of Family History Uni versity of Family Member Heart trouble [facility] Unknown Family history of Family History Uni versity of Family Member hypertension [facility] Unknown Family history of Family History Uni versity of Family Member malignant neoplasm [facility] Unknown Family history of Family History Uni versity of Family Member cerebrovascular [facility] accident (CVA) Natural Pancreatic cancer Souris father Yazidism Natural Heart attack Souris mother Yazidism Natural Suicidality [place]is sister Yazidism Social History Social Habit Start Date Stop Date Quantity Comments Source History of tobacco 1960-03-31 Current smoker [place] Yazidism use 00:00:00 History SDOH [facility] Meth odist [facility] Binge Exposure to Not sure [place] Metho dist SARS-CoV-2 (event) Cigarettes smoked 2020-11-11 2020-11-11 Rodriguez Yazidism current (pack per 00:00:00 00:00:00 day) - Reported Cigarette 2020-11-11 2020-11-11 Rodriguez Method ist pack-years 00:00:00 00:00:00 Tobacco use and 2020-11-11 2020-11-11 Never used Michael Steward ethodist exposure 00:00:00 00:00:00 Alcohol intake 2020-11-11 2020-11-11 Lifetime Rodriguez Me thodist 00:00:00 00:00:00 non-drinker (finding) Tobacco Comment 2020-03-24 2020-03-24 Smoked about 30 [place] Yazidism 00:00:00 00:00:00 years. Decided it was stupid so I quit History SDOH 2018-09-17 2018-09-17 1 Rodriguez Meth odist Alcohol Frequency 00:00:00 00:00:00 Sex [birth year] At [birth year] Michael Steward ethodist 00:00:00 00:00:00 Smoking Status Start Date Stop Date Source Former smoker 2020-11-11 00:00:00 2020-11-11 00:00:00 [place] Yazidism Medications Ordered Filled Start Stop Current Ordering Indication Dosage Frequency Signature Comments Components Source Medication Medication Date Date Medication? Clinician (SIG) Name Name ferrous 2021-0 Yes 325mg Q.5D Take 325 [place] sulfate 325 4-13 mg by Methodi (65 FE) MG 13:34: mouth 2 st tablet 09 (two) times a day. acetaminoph Yes 500mg Take 500 [place] en 4-13 mg by Methodi (TYLENOL) 13:34: mouth as st 500 MG 09 needed for tablet mild pain. aspirin Yes 81mg QD Take 81 mg [place] (ECOTRIN) 4-13 by mouth Method i 81 MG 13:34: daily. st enteric 09 coated tablet amLODIPine 2021- Yes Essential 5mg QD Take 1 Rodriguez (NORVASC) 5 -10 11- hypertensio tablet (5 Methodi mg tablet 00:00: 23:59 n mg total) st 00 :00 by mouth daily. lisinopriL 2021- Yes 10mg QD Take 1 [place] (PriniviL) 10-29 tablet (10 Me thodi 10 mg 00:00: 23:59 mg total) st tablet 00 :00 by mouth daily. rosuvastati 2021- Yes 10mg QD Take 1 Fidelia ston n (CRESTOR) 10-29-27 tablet (10 M ethodi 10 mg 00:00: 23:59 mg total) st tablet 00 :00 by mouth every morning for 360 days. ascorbic 2020- No 500mg QD Take 500 [place] ston acid, 3-30 03-30 mg by Methodi vitamin C, 15:07: 00:[address] (VITAMIN C) 59 :00 daily. 500 MG tablet cholecalcif 2020- No 400U QD Take 400 [place] audrey, 3-30 03-30 Units by Methodi vitamin D3, 15:07: 00:[address] (VITAMIN 52 :00 daily. D3) 400 unit tablet calcium 2020- No 1{tbl} QD Take 1 [place] carbonate/v 10-27-30 tablet by Me thodi itamin D3 15:07: 00:[address] (CALTRATE 48 :00 nightly. 600 + D ORAL) choline 2021- Yes 135mg QD Take 1 [place] fenofibrate 10-27-25 capsule Meth monty (TRILIPIX) 00:00: 23:59 ([address] 135 mg 00 :00 total) by capsule mouth daily for 360 days. traZODone 2020- Yes 25mg QD Take 0.5 Fidelia ston (DESYREL) 3-30 04-29 tablets Method i 50 MG 00:00: 23:59 ([address] tablet 00 :00 total) by mouth nightly for 30 days. Synthroid 2019-07- No 112ug QD Take 112 [place] 112 mcg 0-20 10-20 mcg by Methodi tablet 16:51: 00:[address] 48 :00 daily. lisinopriL- 2019-07 No 1{tbl} QD Take 1 [place] hydrochloro 0-20 10-20 tablet by [place] thodi thiazide 16:51: 00:[address] (PRINZIDE) 48 :00 daily. 10-12.5 mg per tablet clonAZEPAM 2019-07 No .5mg QD Take 0.5 [place] (KlonoPIN) 0-20 10-20 mg by Methodi 0.5 MG 16:39: 00:[address] tablet 05 :00 nightly as needed for seizures. lisinopriL 2019-07 No QD Take by Fidelia ston 10 mg 0-20 10-20 mouth Methodi tablet 1 16:06: 00:[address] tablet, 52 :00 hydroCHLORO thiazide 25 MG tablet 0.5 tablet Synthroid 2019-07 Yes 112ug QD Take 1 [place] 112 mcg 0-20 tablet Methodi tablet 00:00: ([address] 00 total) by mouth daily. lisinopriL- 2019-07 No 1{tbl} QD Take 1 [place] hydrochloro 0-20 04-01 tablet by [place] thodi thiazide 00:00: 00:[address] (PRINZIDE) 00 :00 daily. 10-12.5 mg per tablet rosuvastati 2019-07 No 10mg QD Take 1 Fidelia ston n (CRESTOR) 0-20 03-31 tablet (10 M ethodi 10 mg 00:00: 00:00 mg total) st tablet 00 :00 by mouth every morning for 360 days. choline 2019-07 No 135mg QD Take 1 [place] fenofibrate 0-20 03-30 capsule Meth monty (TRILIPIX) 00:00: 00:00 ([address] 135 mg 00 :00 total) by capsule mouth daily for 360 days. FLUoxetine 2019-07 20mg QD Take 1 [place] (PROzac) 20 0-20 01-18 capsule Meth monty MG capsule 00:00: 23:59 ([address] 00 :00 total) by mouth nightly for 90 days. glycopyrrol 2019-07 Yes [place] ate/formote 0-13 Methodi rol fum 00:00: st (BEVESPI 00 AEROSPHERE INHL) traMADoL No acute pain 25mg Q8H Take 0.5 Rodriguez (ULTRAM) 50 9-03 09-08 tablets Meth monty mg tablet 00:00: 23:59 ([address] 00 :00 total) by mouth every 8 (eight) hours as needed for severe pain for up to 5 days .acute pain. lisinopriL 1{tbl} QD Take 1 [place] 10 mg 8-25 08-25 tablet by Methodi tablet 1 16:18: 00:[address] tablet, 42 :00 nightly. hydroCHLORO thiazide 25 MG tablet 0.5 tablet FLUoxetine No 20mg QD Take 20 mg Rodriguez (PROzac) 20 8-25 08-25 by mouth Met hodi MG capsule 16:11: 00:[address] 40 :00 rosuvastati No 10mg QD Take 10 mg Rodriguez n (CRESTOR) 8-25 08-25 by mouth Met hodi 10 MG 16:11: 00:[address] tablet 40 :00 morning. liothyronin 2019- No 5ug QD Take 5 mcg Rodriguez e (CYTOMEL) 8-25 08-25 by mouth Met hodi 5 MCG 16:11: 00:[address] tablet 36 :00 levothyroxi 2019- No 125ug QD Take 125 Rodriguez ne 8-25 08-25 mcg by Methodi (SYNTHROID, 16:07: 00:[address] LEVOXYL) 30 :00 every 125 mcg morning. tablet FLUoxetine No 20mg QD Take 1 [place] (PROzac) 20 8-25 10-20 capsule Meth monty MG capsule 00:00: 00:00 ([address] 00 :00 total) by mouth nightly for 90 days. rosuvastati 2019- 2020- No 10mg QD Take 1 Fidelia ston n (CRESTOR) 8-25 10-20 tablet (10 M ethodi 10 mg 00:00: 00:00 mg total) st tablet 00 :00 by mouth every morning for 90 days. choline 2019-2019- No 135mg QD Take 1 [place] fenofibrate 8-25 10-20 capsule Meth monty (TRILIPIX) 00:00: 00:00 ([address] 135 mg 00 :00 total) by capsule mouth daily for 90 days. levothyroxi 2019- No 112ug QD Take 1 [place] ne 8-25 10-20 tablet Methodi (SYNTHROID) 00:00: 00:00 (112 mcg s t 112 mcg 00 :00 total) by tablet mouth daily. lisinopriL 2019- No 5mg QD Take 0.5 [place] (PRINIVIL) 8-25 10-20 tablets (5 Me thodi 10 mg 00:00: 00:00 mg total) st tablet 00 :00 by mouth daily. hydroCHLORO 2019- No 12.5mg QD Take 0.5 Rodriguez thiazide 8-25 10-20 tablets Methodi (HYDRODIURI 00:00: 00:00 (12.5 mg s t L) 25 MG 00 :00 total) by tablet mouth daily. fenofibric 2019- No 35mg QD Take 35 mg Rodriguez acid 03-03 by mouth Methodi (FIBRICOR) 14:49: 00:[address] 35 mg 42 :00 tablet ascorbic 2019- No 250mg QD Take 250 Fidelia ston acid, 03-03-04 mg by Methodi vitamin C, 14:45: 00:[address] (VITAMIN C) 40 :00 daily. 250 MG tablet clopidogrel 2019- No 75mg QD Take 75 mg Rodriguez (PLAVIX) 75 03-03-04 by mouth Met hodi mg tablet 14:40: 00:[address] 02 :00 esomeprazol 2019-2019- No 20mg QD Take 20 mg Rodriguez e (NexIUM) 03-03- by mouth Meth monty 20 MG 14:39: 00:[address] capsule 51 :00 before breakfast. hydroCHLORO 2019- No 12.5mg QD Take 12.5 Rodriguez thiazide 8-04 08-04 mg by Methodi (HYDRODIURI 14:39: 00:[address] L) 12.5 MG 47 :00 nightly. tablet irbesartan 2019- No 75mg QD Take 75 mg Rodriguez (AVAPRO) 75 8-04 08-04 by mouth Met hodi MG tablet 14:39: 00:[address] 44 :00 lisinopriL 2019- No 1{tbl} QD Take 1 Ho usashley (PRINIVIL) 4-08 08-04 tablet by Met hodi 10 mg 00:00: 00:[address] tablet 00 :00 daily. Lisinopril- Lisinopril- Yes REHAL Take one Univers hydroCHLORO hydroCHLORO 1-08 BHOJANI tab daily ity of thiazide thiazide 00:00: M.D. [place] 10-12.5 MG 10-12.5 MG 00 Phy sici Oral Tablet Oral Tablet a ns aspirin 81 2018-07 Yes 81mg QD Take [address] MG EC 2-01 by [facility] - tablet 17:46: daily. Medical 23 [place] clopidogrel 2018-07 Yes 75mg QD Take [address] [facility] [address] (PLAVIX) 75 2-01 by mouth Luke s - mg tablet 17:46: daily. Medica l 23 [place] fenofibric 2018-07 Yes 135mg QD Take [address] acid 35 mg 2-01 mg by [facility] - Tab 17:46: mouth Medical 23 daily. [place] iron, 2018-07 Yes 1{tbl} QD Take [address] carbonyl 2-01 tablet by [facility] - (FEOSOL) 45 17:46: mouth Medic al mg Tab 23 daily. [place] tablet FLUoxetine 2018-07 Yes 20mg QD Take [address] (PROZAC) 20 2-01 by mouth Luke s - MG tablet 17:46: nightly. [facility] bari 23 [place] Levothyroxi Levothyroxi 2018-07 Yes RICK 1 QD TAKE 1 Univers ne Sodium ne Sodium 0-17 SOHA M.D. TABLET ity of 112 MCG 112 MCG 00:00: DAILY. [place] Oral Tablet Oral Tablet 00 P hysici ans aspirin 2020- No 81mg QD Take 1 Rodriguez (ECOTRIN) 9-16 04-17 tablet (81 Met hodi 81 MG 00:00: 23:59 mg total) st enteric 00 :00 by mouth coated daily. tablet liothyronin Yes 5ug QD Take [address] e (CYTOMEL) 3-04 by mouth Luke s - 5 MCG 00:00: daily. Medical tablet 00 Center FLUoxetine FLUoxetine 2017-07 Yes KETTY TAKE 1 Univers HCl - 20 MG HCl - 20 MG 0-17 LI-LINN CAPSULE AT ity of Oral Oral 00:00: LATOYA M.D. BEDTIME [place] Capsule Capsule 00 Physici ans Liothyronin Liothyronin 2017-07 Yes KETTY 1 QD TAKE 1 Univers e Sodium 5 e Sodium 5 0-17 LI-LINN TABLET ity of MCG Oral MCG Oral 00:00: LATOYA M.D. DAILY [place] Tablet Tablet 00 Physici ans Rosuvastati Rosuvastati 2017-07 Yes RICK 1 QD TAKE 1 Univers n Calcium n Calcium 0-17 SOHA M.D. TABLET ity of 10 MG Oral 10 MG Oral 00:00: DAILY. [place] Tablet Tablet 00 Physici ans Fenofibric Fenofibric 2017-07 Yes REHAL TAKE 1 Univers Acid 135 MG Acid 135 MG 0-17 BHOJANI TABLET BY ity of Oral Oral 00:00: M.D. MOUTH [place] Capsule Capsule 00 DAILY Physici Delayed Delayed ans Release Release Irbesartan- Irbesartan- 2017-07 Yes RICK 1 QD TAKE 1 Univers hydroCHLORO hydroCHLORO 0-17 SOHA M.D. TABLET ity of thiazide thiazide 00:00: DAILY; DUE [place] 150-12.5 MG 150-12.5 MG 00 FOR Physici Oral Tablet Oral Tablet FOLLOW UP ans choline 2017-07 2020- No 1{capsu QD Take 1 [place] fenofibrate 0-17 08-25 le} capsule by Bin coles (TRILIPIX) 00:00: 00:[address] 135 mg 00 :00 daily. capsule levothyroxi Yes 125ug Take [address] ne 3-13 mcg by [facility] - (SYNTHROID, 00:00: mouth Medic al LEVOTHROID) 00 Daily Center 125 MCG (0600). tablet rosuvastati Yes 10mg QD Take [address] n (CRESTOR) 3-12 by mouth Luke s - 5 MG tablet 00:00: daily. Medi bari 00 Center irbesartan- Yes 1{tbl} QD Take [address] hydrochloro 3-12 tablet by Kiel es - thiazide 00:00: mouth Medical (AVALIDE) 00 daily. Center 150-12.5 mg per tablet Caltrate Caltrate Yes Univers 600+D3 Soft 600+D3 Soft i ty of CHEW CHEW [place] Physici ans Feosol TABS Feosol TABS Yes U nivers ity of [place] Physici ans Vitamin C Vitamin C Yes Unive rs CAPS CAPS ity of [place] Physici ans Vitamin D-3 Vitamin D-3 Yes U nivers CAPS CAPS ity of [place] Physici ans Clopidogrel Clopidogrel Yes 1 QD TAKE 1 Univers Bisulfate Bisulfate TABLET ity of 75 MG Oral 75 MG Oral DAILY. [place] Tablet Tablet Physici ans NexIUM 24HR NexIUM 24HR Yes 1 tablet Univers TBEC TBEC daily ity of [place] Physici ans Immunizations Ordered Immunization Filled Immunization Date Status Commen ts Source Name Name NAS COVID-19 2020-09-24 Completed [facility] VACCINATION 00:00:00 Methodis t ANIRUDHA COVID-19 2020-08-18 Completed [facility] MRNA VACCINATION 00:00:00 Methodis t Vital Signs Vital Name Observation Time Observation Value Comments Source Systolic blood 2020-11-10 163 mm[Hg] [facility] Metho dist pressure 13:33:00 Diastolic blood 2020-11-10 80 mm[Hg] [facility] Meth odist pressure 13:33:00 Heart rate 2020-11-10 81 /min [facility]i [facility] 13:33:00 Body temperature 2020-11-10 36.83 Wilda [facility] Met hodist 13:33:00 Respiratory rate 2020-11-10 16 /min [facility] Met hodist 13:33:00 Body height 2020-11-10 172.[address] [facility] [address] 13:33:00 Body weight 2020-11-10 [address] [facility] [address] 13:33:00 BMI 2020-11-10 24.18 kg/m2 [facility] st 13:33:00 Oxygen saturation 2020-11-10 100 /min [facility] thodist in Arterial blood 13:33:00 by Pulse oximetry BP Systolic 2019-05-14 140 mm[Hg] University of 10:33:00 [place] Physician s BP Diastolic 2019-05-14 76 mm[Hg] University of 10:33:00 [place] Physician s Height 2019-05-14 68 [in_us] University of 10:33:00 [place] Physician s Weight 2019-05-14 160.125 [lb_av] Lolita o 10:33:00 [place] Physician s Body Mass Index 2019-05-14 24.35 kg/m2 University o f Calculated 10:33:00 [place] Physician s Heart Rate 2019-05-14 69 /min University of 10:33:00 [place] Physician s O2 SAT 2019-05-14 98 % University of 10:33:00 [place] Physician s Body Mass Index 2018-09-11 25.11 kg/m2 University o f Calculated 09:40:00 [place] Physician s Temperature 2018-09-11 97.7 [degF] Method: Oral University of 09:40:00 [place] Physician s Heart Rate 2018-09-11 69 /min University of 09:40:00 [place] Physician s O2 SAT 2018-09-11 98 % University of 09:40:00 [place] Physician s BP Systolic 2018-09-11 184 mm[Hg] University of 09:40:00 [place] Physician s BP Diastolic 2018-09-11 78 mm[Hg] University of 09:40:00 [place] Physician s Height 2018-09-11 68 [in_us] University of 09:40:00 [place] Physician s Weight 2018-09-11 165.125 [lb_av] University o 09:40:00 [place] Physician s BP Systolic 2018-05-15 97 mm[Hg] University of 15:13:00 [place] Physician s BP Diastolic 2018-05-15 71 mm[Hg] University of 15:13:00 [place] Physician s Height 2018-05-15 68 [in_us] University of 15:13:00 [place] Physician s Weight 2018-05-15 167.6 [lb_av] University of 15:13:00 [place] Physician s Body Mass Index 2018-05-15 25.48 kg/m2 University o f Calculated 15:13:00 [place] Physician s Temperature 2018-05-15 97.3 [degF] Method: Oral University 15:13:00 [place] Physician s Heart Rate 2018-05-15 76 /min University of 15:13:00 [place] Physician s O2 SAT 2018-05-15 98 % University 15:13:00 [place] Physician s Procedures Procedure Date / Time Performing Clinician Source Performed BASIC METABOLIC PANEL 2020-11-10 14:25:00 Hermes Felipe US RENAL 2020-11-05 11:01:55 Sharon Dover CBC WITH PLATELET AND 2020-10-28 09:07:00 Sharon Dover DIFFERENTIAL COMPREHENSIVE METABOLIC 2020-10-28 09:07:00 Sharon Dover PANEL URINALYSIS, AUTOMATED WITH 2020-10-28 09:07:00 Sharon Dover MICROSCOPY PROTEIN, URINE, RANDOM 2020-10-28 09:07:00 Sharon Dover CREATININE LEVEL, URINE, 2020-10-28 09:07:00 Sharon Dover RANDOM FERRITIN LEVEL 2020-10-28 09:07:00 Sharon Dover TOTAL IRON BINDING 2020-10-28 09:07:00 Sharon Dover on Yazidism CAPACITY THYROID STIMULATING 2020-10-28 09:07:00 Sharon Dover Yazidism HORMONE T4, FREE 2020-10-28 09:07:00 Sharon Dover LIPID PANEL 2020-10-28 09:04:00 Sharon Dover THYROID STIMULATING 2020-05-19 17:02:00 Sharon Dover Yazidism HORMONE CV CATH ABORTED PCI 2020-04-17 11:57:07 Remberto Woody on Yazidism PROCEDURE CV UNLISTED MEASURER MACHINE 2020-04-17 11:57:07 Remberto Woody Yazidism PROCEDURE CV SELECTIVE CORONARY 2020-04-17 11:57:07 Remberto Woody Yazidism ANGIOGRAPHY CV TRANSLUMINAL BALLOON 2020-04-17 11:57:07 Remberto Woody Yazidism ANGIOPLASTY FIRST ARTERY (NOT FOR LOWER EXTREM) CATH ABORTED PROCEDURE 2020-04-17 11:57:07 Remberto Woody ACTIVATED CLOTTING TIME 2020-04-17 10:31:00 Remberto Woody ECG 12-LEAD 2020-04-17 06:57:29 Priscilla Remberto Steward ethodist BASIC METABOLIC PANEL 2020-04-13 09:45:00 Remberto Woody HC COMPLETE BLD COUNT 2020-04-13 09:45:00 Remberto Woody W/AUTO DIFF ESTIMATED GFR 2020-04-13 09:45:00 Remberto Woodyodist COVID-19 QUALITATIVE PCR 2020-04-13 09:40:00 Remberto Woody BASIC METABOLIC PANEL 2020-04-02 05:14:00 Dutch Nye HC COMPLETE BLD COUNT 2020-04-02 05:14:00 Dutch Nye W/AUTO DIFF MAGNESIUM LEVEL 2020-04-02 05:14:00 Dutch Nye Wv thodist PHOSPHORUS LEVEL 2020-04-02 05:14:00 Dutch Nye ethodist ESTIMATED GFR 2020-04-02 05:14:00 León Coyne ethodist TRANSFUSE RED BLOOD CELLS 2020-04-01 17:56:41 Jenny Gautam Susu TYPE AND SCREEN 2020-04-01 10:46:00 Jenny Gautam Meth odist Susu PREPARE RBC 2020-04-01 10:46:00 Jenny Gautam Meth odist Susu HC COMPLETE BLD COUNT 2020-04-01 04:30:00 Dutch Nye W/AUTO DIFF BASIC METABOLIC PANEL 2020-04-01 04:00:00 Dutch Nye MAGNESIUM LEVEL 2020-04-01 04:00:00 Dutch Nye Wv thodist ESTIMATED GFR 2020-04-01 04:00:00 León Coyne ethodist PV TRANSCRANIAL DOPPLER 2020-03-31 12:00:00 Dutch Nye INTRACRANIAL ARTERIES EMBOLI DETECTION WO INJECTION SODIUM LEVEL, SYRINGE 2020-03-31 10:42:00 Reul, León Ahumada ARTERIAL BLOOD GAS, 2020-03-31 10:42:00 Reul, León Rojas on Yazidism CORRECTED POTASSIUM, SYRINGE 2020-03-31 10:42:00 Reul, León kaplan Yazidism HEMOGLOBIN, SYRINGE 2020-03-31 10:42:00 Reul, León Rojas on Yazidism IONIZED CALCIUM, ARTERIAL 2020-03-31 10:42:00 Reul, León Ahumada GLUCOSE LEVEL, SYRINGE 2020-03-31 10:42:00 Reul, León Ahumada ACTIVATED CLOTTING TIME 2020-03-31 10:41:00 Reul, León Ahumada ACTIVATED CLOTTING TIME 2020-03-31 10:22:00 Reul, León Ahumada ACTIVATED CLOTTING TIME 2020-03-31 09:54:00 Reul, León Ahumada ARTERIAL BLOOD GAS, 2020-03-31 09:49:00 Reul, León Rojas on Yazidism CORRECTED POTASSIUM, SYRINGE 2020-03-31 09:49:00 Reul, León Vasquesist SODIUM LEVEL, SYRINGE 2020-03-31 09:49:00 Reul, León Ahumada HEMOGLOBIN, SYRINGE 2020-03-31 09:49:00 Reul, León Rojas on Yazidism IONIZED CALCIUM, ARTERIAL 2020-03-31 09:49:00 Reul, León Ahumada GLUCOSE LEVEL, SYRINGE 2020-03-31 09:49:00 Reul, León Ahumada ACTIVATED CLOTTING TIME 2020-03-31 09:46:00 Reul, León Ahumada ACTIVATED CLOTTING TIME 2020-03-31 09:36:00 Reul, León Ahumada ARTERIAL LINE 2020-03-31 08:59:53 Bryanna Escobar Met hodist NE AN ELECTIVE 2020-03-31 08:27:08 Bryanna Escobar Met hodist ENDOTRACHEAL AIRWAY ARTERIAL BLOOD GAS, 2020-03-31 08:07:00 Reul, León Rojas on Yazidism CORRECTED POTASSIUM, SYRINGE 2020-03-31 08:07:00 Reul, León Ahumada SODIUM LEVEL, SYRINGE 2020-03-31 08:07:00 Reyin, León Ahumada HEMOGLOBIN, SYRINGE 2020-03-31 08:07:00 Reul, León Rojas on Yazidism IONIZED CALCIUM, ARTERIAL 2020-03-31 08:07:00 Reyin, León Ahumada GLUCOSE LEVEL, SYRINGE 2020-03-31 08:07:00 ReLeón esqueda ACTIVATED CLOTTING TIME 2020-03-31 08:04:00 Reyin, León Ahumada ENDARTERECTOMY, CAROTID 2020-03-31 07:30:00 ReLeón esqueda URINE CULTURE 2020-03-30 11:03:00 Remberto Woody ethodist URINALYSIS SCREEN AND 2020-03-30 10:18:00 Remberto Woody MICROSCOPY, WITH REFLEX TO CULTURE COVID-19 QUALITATIVE PCR 2020-03-30 09:39:00 León Coyne XR CHEST 2 VW 2020-03-30 08:21:17 León Coyne ethodist LIPID PANEL 2020-03-30 07:13:00 Chad Willingham Met jeffrey COMPREHENSIVE METABOLIC 2020-03-30 07:13:00 Chad Willingham PANEL PROTHROMBIN TIME WITH INR 2020-03-30 07:13:00 Chad Willingham PARTIAL THROMBOPLASTIN 2020-03-30 07:13:00 Chad Willingham TIME (PTT) ESTIMATED GFR 2020-03-30 07:13:00 Chad Willingham Met jeffrey HC COMPLETE BLD COUNT 2020-03-30 07:13:00 Remberto Woody W/AUTO DIFF TYPE AND SCREEN 2020-03-24 16:58:00 Chad Willingham Met jeffrey PV TRANSCRANIAL DOPPLER 2020-03-24 14:21:00 León Coyne INTRACRANIAL ARTERIES COMPLETE CT ANGIOGRAM CHEST W WO 2020-03-24 14:01:[address] ANGIOGRAM NECK W WO 2020-03-24 14:00:41 León Coyne ashley Yazidism CONTRAST CV UNLISTED MEASURER MACHINE 2020-03-10 16:29:28 Remberto Woody PROCEDURE CV LEFT HEART CATH 2020-03-10 16:29:28 Remberto Woody CV SELECTIVE CORONARY 2020-03-10 16:29:28 Remberto Woody ANGIOGRAPHY CV ANGIOGRAM CAROTID 2020-03-10 16:29:28 Remberto Woody BILATERAL ECG 12-LEAD 2020-03-10 12:08:47 Remberto Woody ethodist TSH REFLEX TO T4F 2020-03-06 08:12:00 Sharon Dover COVID-19 QUALITATIVE PCR 2020-03-05 13:20:00 Remberto Woody PROTHROMBIN TIME WITH INR 2020-03-05 13:05:00 Remberto Woody BASIC METABOLIC PANEL 2020-03-05 13:05:00 Remberto Woody HC COMPLETE BLD COUNT 2020-03-05 13:05:00 Remberto Woody W/AUTO DIFF ESTIMATED GFR 2020-03-05 13:05:00 Remberto Woody ethodi History of Thyroidectomy [facility] Physicians History of Hysterectomy [facility] total Physicians History of [employer] [facility] Hemorrhoidectomy Physicians History of Lung lobectomy [facility] Physicians Plan of Care Planned Activity Planned Date Details Comments Source Future Scheduled 2021-02-28 INFLUENZA VACCINE Kenna kaplan Yazidism Test 00:00:00 [code = INFLUENZA VACCINE] Future Scheduled 2020-03-31 INFLUENZA VACCINE (#1[facility] 00:[facility]:00 [code = INFLUENZA Medical Ce nter VACCINE (#1)] Future Scheduled 2019-08-[address] [facility] - Test 00:00:00 WELLNESS (YEAR 2 or Medical Center FIRST YEAR if no IPPE) [code = MEDICARE ANNUAL WELLNESS (YEAR 2 or FIRST YEAR if no IPPE)] Future Scheduled 2006 PNEUMOCOCCAL 65+ YRS [facility] - Test 00:00:00 (1 of 1 - Medical Center [id number] PCV13) [code = PNEUMOCOCCAL 65+ YRS (1 of 1 - [id number] PCV13)] Future Scheduled 1991 SHINGLES VACCINES (#1) H keri [facility] Test 00:00:00 [code = SHINGLES VACCINES (#1)] Future Scheduled 1959 Hepatitis C screening Ho [facility] Y[facility]ism Test 00:00:00 (procedure) [code = 025209241] Future Scheduled 1947 65+ PNEUMOCOCCAL [facility] Test 00:00:00 VACCINE (1 of 4 - PCV13) [code = 65+ PNEUMOCOCCAL VACCINE (1 of 4 - PCV13)] Encounters Start End Encounter Admission Attending Care Care Encounter Source Date/Time Date/Time Type Type Clinicians Facility Department ID 2020-11-10 2020-11-10 Outpatient [facility] [id number] [facility] 00:00:00 00:00:[address] 2020-11-05 2020-11-05 Outpatient HENDRICKS, [facility] [id number] [facility] 00:00:00 00:00:[address] SW[address]IL [address] 2020-10-27 2020-10-27 Outpatient [facility] [id number] [facility] 00:00:00 00:00:[address] 2020-09-24 2020-09-24 Outpatient [facility] [id number] [facility] 00:00:00 00:00:[address] 2020-08-18 2020-08-18 Outpatient [facility] [id number] [facility] 00:00:00 00:00:[address] 2020-05-19 2020-05-19 Outpatient HENDRICKS, [facility] [id number] [facility] 00:00:00 00:00:[address] SW[address]NIL [address] 2020-05-19 2020-05-19 Outpatient [facility] [id number] [facility] 00:00:00 00:00:[address] 2020-04-17 2020-04-17 Outpatient PRISCILLA, [facility] [id number] [facility] 00:00:00 00:00:00 REMBERTO [address] 2020-04-14 2020-04-14 Outpatient CONSTANCE, [facility] [id number] [facility] 00:00:00 00:00:00 KETTY [address] 2020-04-13 2020-04-13 Outpatient PRISCILLA, [facility] [id number] [facility] 00:00:00 00:00:00 REMBERTO [address] 2020-04-13 2020-04-13 Outpatient CONSTANCE, [facility] [id number] [facility] 00:00:00 00:00:00 KETTY [address] 2020-04-08 2020-04-08 Outpatient REUL, LEÓN [facility] [id number] [facility] 00:00:00 00:00:[address] 2020-03-31 2020-04-02 Inpatient REUL, LEÓN [facility] [id number] [facility] 00:00:00 00:00:[address] 2020-03-30 2020-03-30 Outpatient PRISCILLA, [facility] [id number] [facility] 00:00:00 00:00:00 REMBERTO [address] 2020-03-30 2020-03-30 Outpatient REUL, LEÓN [facility] [id number] [facility] 00:00:00 00:00:[address] 2020-03-30 2020-03-30 Outpatient REUL, LEÓN [facility] [id number] [facility] 00:00:00 00:00:[address] 2020-03-24 2020-03-24 Outpatient REUL, LEÓN [facility] [id number] [facility] 00:00:00 00:00:[address] 2020-03-24 2020-03-24 Outpatient REUL, LEÓN [facility] [id number] [facility] 00:00:00 00:00:[address] 2020-03-24 2020-03-24 Outpatient REUL, LEÓN [facility] [id number] [facility] 00:00:00 00:00:[address] 2020-03-24 2020-03-24 Outpatient REUL, ROSS [facility] [id number] [facility] 00:00:00 00:00:[address] 2020-03-18 2020-03-18 Outpatient REUL, LEÓN [facility] [id number] [facility] 00:00:00 00:00:[address] 2020-03-10 2020-03-10 Outpatient PRISCILLA, [facility] [id number] [facility] 00:00:00 00:00:00 REMBERTO [address] 2020-03-06 2020-03-06 Outpatient HENDRICKS, [facility] [id number] [facility] 00:00:00 00:00:00 SWAPNIL [address] 2020-03-05 2020-03-05 Outpatient [facility] [id number] [facility] 00:00:00 00:00:[address] 2020-03-05 2020-03-05 Outpatient PRISCILLA, [facility] [id number] [facility] 00:00:00 00:00:00 REMBERTO [address] 2020-03-03 2020-03-03 Outpatient [facility] [id number] [facility] 00:00:00 00:00:[address] 2019-11-12 2019-11-12 Appointmen [facility] [id number] Univers 08:00:00 08:00:00 t; RICK HOYOS, Jean Johnson M.D. Physici ans 2019-11-07 2019-11-07 Appointmen [facility] [id number] Univers 10:45:00 10:45:00 t; CHAVO KLEIN, - [place] ity KETTY KLEIN, Jean Vzicarra M.D. ans 2019-05-14 2019-05-14 Appointmen [facility] [id number] Univers 08:00:00 08:00:00 t; RICK HOYOS, - [place] Alex M.D. [facility] Physici ans 2018-09-11 2018-09-11 Appointmen [facility] [id number] Univers 09:00:00 09:00:00 t; RICK HOYOS, at [facility] Jean Johnson M.D. Physici ans 2018-05-15 2018-05-15 Appointmen MERLIN HOYOS [facility] [id number] Univers 09:00:00 09:00:00 t; RICK HOYOS, Orthoped[facility]. [facility] 2018-05-15 2018-05-15 Appointmen MERLIN HOYOS [facility] [id number] Univers 07:45:00 07:45:00 t; RICK HOYOS ity of JOCELYN, M.D. [facility] Results Test Description Test Time Test Comments Results Result Comments Source Basic metabolic panel 2020-11-11 01:35:00 Test Item Value Reference Range Interpretation Comme nts Glucose (test code = 91 mg/dL 65-139 Non-fasting 2345-7) reference inter tyler BUN (test code = 3094-0) 19 mg/dL 7-25 Creatinine (test code = 1.17 mg/dL 0.60-0.93 H For patients >49 years of 2160-0) age, the refere nce limitfor Creati nine is approximately 1 3% higher for peopleident ified as -Naomy n. EGFR Non-Afr. Citizen Of [place] 44 See_Comment L [Aut omated message] The (test code = 2775) system [facility] generated this result tra nsmitted reference range : > OR = 60 mL/min/1.73m 2. The reference range was not used to interpr et this result as normal/abnormal . EGFR 51 See_Comment L [Auto mated message] The (test code = 2774) system [facility] generated this result tra nsmitted reference range : > OR = 60 mL/min/1.73m 2. The reference range was not used to interpr et this result as normal/abnormal . BUN/creatinine ratio 16 See_Comment [Autom ated message] The (test code = 3097-3) system which generated this result tra nsmitted reference range : 6 - 22 (calc). The ref erence range was not u sed to interpret this result as normal/abnormal . Sodium (test code = 128 mmol/L 135-146 L 2951-2) Potassium (test code = 4.2 mmol/L 3.5-5.3 2823-3) Chloride (test code = 96 mmol/L 98-110 L 5-0) CO2 (test code = 2027-9) 26 mmol/L 20-32 Calcium (test code = 9.1 mg/dL 8.6-10.4 75806-1) GUILLERMINA (test code = GUILLERMINA) FASTING:NO FASTING: NO RAC (test code = RAC) Performing Organization Information: Site ID: [id number] Name: [facility] Address: [address] [place] [id number] Director: Alexis Barragan Lab Interpretation (test Abnormal code = 77508-5) [facility] [id number] 18:55:00 Test Item Value Reference Interpretation Comments Range Glucose (test code 88 mg/dL 65-99 Fasting = 2345-7) reference inter tyler BUN (test code = 21 mg/dL 7-25 3094-0) Creatinine (test 1.15 mg/dL 0.60-0.93 H For patient s >49 code = 2160-0) years of age, the reference limit for Creatinine is approximately 1 3% higher for peopleidentifie d as -Naomy n. EGFR Non-Afr. 45 See_Comment L [Automated me ssage] Citizen Of [place] (test code The syst em which = 9389) generated this result transmit kelly reference range : > OR = 60 mL/min/1.73m2. The reference range was not used to interpret this result as normal/abnormal . EGFR 52 See_Comment L [Automated mes daniel] Citizen Of [place] (test code The syst em which = 98367-1) generated this result transmit kelly reference range : > OR = 60 mL/min/1.73m2. The reference range was not used to interpret this result as normal/abnormal . BUN/creatinine 18 See_Comment [Automated m essage] ratio (test code = The syste m which 3097-3) generated this result transmit kelly reference range : 6 - 22 (calc). The reference range was not used to interpret this result as normal/abnormal . Sodium (test code = 129 mmol/L 135-146 L 2951-2) Potassium (test 4.2 mmol/L 3.5-5.3 code = 2823-3) Chloride (test code 95 mmol/L 98-110 L = 2075-0) CO2 (test code = 26 mmol/L 20-32 8-9) Calcium (test code 9.2 mg/dL 8.6-10.4 = 25803-5) Protein (test code 6.5 g/dL 6.1-8.1 = 2885-2) Albumin, S (test 4.1 g/dL 3.6-5.1 code = 1751-7) Globulin, total 2.4 See_Comment [Automated message] (test code = [place] [address]-6) generated this result transmit kelly reference range : 1.9 - 3.7 g/dL (bari c). The reference r leroy was not used to interpret this result as normal/abnormal . Albumin/globulin 1.7 See_Comment [Automated message] ratio (test code = The syste m which 1759-0) generated this result transmit kelly reference range : 1.0 - 2.5 (calc). T he reference range was not used to interpret this result as normal/abnormal . Total bilirubin 0.4 mg/dL 0.2-1.2 (test code = 1974-2) Alkaline 30 U/L 37-153 L phosphatase (test code = 6768-6) AST (test code = 20 U/L 10-35 1920-8) ALT (test code = 13 U/L 6-29 1742-6) GUILLERMINA (test code = FASTING:YES GUILLERMINA) FASTING: YES RAC (test code = Performing RAC) Organization Information: Site ID: A [facility] Address: [address] [place] [phone] Director: Alexis Barragan Lab Interpretation Abnormal (test code = 24888-1) [facility] [id number] 18:55:00 Test Item Value Reference Range Interpretation Comments Ferritin level (test 89 ng/mL 16-288 code = 2276-4) GUILLERMINA (test code = GUILLERMINA) FASTING:YES FASTING: YES RAC (test code = RAC) Performing Organization Information: Site ID: RGA [facility] Address: [address] [place] [phone] Director: Alexis Barragan Souris MethodistT4, [id number] 18:55:00 Test Item Value Reference Range Interpretation Comments T4, free (test code 1.4 ng/dL 0.8-1.8 = 3024-7) GUILLERMINA (test code = FASTING:YES FASTING: YES GUILLERMINA) RAC (test code = Performing Organization RAC) Information: Site ID: LUCIE [facility] Address: [address] [place] [phone] Director: Alexis Barragan Rodriguez MethodistThyroid stimulating [id number] 18:55:00 Test Item Value Reference Range Interpretation Comments TSH (test 0.45 See_Comment [Automated mes daniel] code = The system whic h 3016-3) generated this result transmit kelly reference range : 0.40 - 4.50 mIU /L. The reference r leroy was not used to interpret this result as normal/abnormal . GUILLERMINA (test FASTING:YES FASTING: code = GUILLERMINA) YES RAC (test Performing code = RAC) Organization Information: Site ID: LUCIE Name: [facility] Address: [address] [place] [phone] Director: Alexis Jagjit Laurel Souris CapriceistCBC with platelet and [id number] 18:55:00 Test Item Value Reference Range Interpretation Comments WBC (test code = 6.3 See_Comment [Automated 6690-2) message] The system which generated this result transmitted reference range : 3.8 - 10.8 Thousand/uL. Th e reference range was not used to interpret this result as normal/abnormal . RBC (test code = 3.23 See_Comment L [Automated 789-8) message] The system which generated this result transmitted reference range : 3.80 - 5.10 Million/uL. The reference range was not used to interpret this result as normal/abnormal . HGB (test code = 9.4 g/dL 11.7-15.5 L 718-7) HCT (test code = 29.0 % 35.0-45.0 L 4544-3) MCV (test code = 89.8 fL 80.0-100.0 787-2) MCH (test code = 29.1 pg 27.0-33.0 785-6) MCHC (test code = 32.4 g/dL 32.0-36.0 786-4) RDW (test code = 11.6 % 11.0-15.0 788-0) Platelet count (test 333 See_Comment [Autom ated code = 777-3) message] The system which generated this result transmitted reference range : 140 - 400 Thousand/uL. Th e reference range was not used to interpret this result as normal/abnormal . MPV (test code = 10.3 fL 7.5-12.5 776-5) Neutrophils, 4334 See_Comment [Automated absolute (test code message] The = 751-8) system which generated this result transmitted reference range : 1,500 - 7,800 cells/uL. The reference range was not used to interpret this result as normal/abnormal . Lymphocytes, 1166 See_Comment [Automated absolute (test code message] The = 731-0) system which generated this result transmitted reference range : 850 - 3,900 cells/uL. The reference range was not used to interpret this result as normal/abnormal . Monocytes, absolute 485 See_Comment [Automa kelly (test code = 742-7) message] The system which generated this result transmitted reference range : 200 - 950 cells/uL. The reference range was not used to interpret this result as normal/abnormal . Eosinophils, 277 See_Comment [Automated absolute (test code message] The = 711-2) system which generated this result transmitted reference range : 15 - 500 cells/uL. The reference range was not used to interpret this result as normal/abnormal . Basophils, absolute 38 See_Comment [Automa kelly (test code = 704-7) message] The system which generated this result transmitted reference range : 0 - 200 cells/u L. The reference range was not used to interpr et this result as normal/abnormal . Neutrophils (test 68.8 % code = 770-8) Lymphocytes (test 18.5 % code = 736-9) Monocytes (test code 7.7 % = 5905-5) Eosinophils (test 4.4 % code = 713-8) Basophils + RC (test 0.6 % code = 706-2) GUILLERMINA (test code = FASTING:YES GUILLERMINA) FASTING: YES RAC (test code = Performing RAC) Organization Information: Site ID: RGA Name: [facility] Address: [address] [place] [phone] Director: Alexis Barragan Lab Interpretation Abnormal (test code = 21516-5) Souris MethodistUrinalysis, automated with [id number] 18:55:00 Test Item Value Reference Range Interpretation Comments Color, UA (test code YELLOW YELLOW = 5778-6) Appearance (test CLEAR CLEAR code = 5767-9) Specific gravity, 1.008 1.001-1.035 urine (test code = 5811-5) pH, urine (test code 6.5 5.0-8.0 = 5803-2) Glucose, urine (test NEGATIVE NEGATIVE code = 71342-8) Bilirubin, UA (test NEGATIVE NEGATIVE code = 5770-3) Ketones, UA (test NEGATIVE NEGATIVE code = 2514-8) Occult blood, urine NEGATIVE NEGATIVE (test code = 5794-3) Protein, UA (test NEGATIVE NEGATIVE code = 61054-3) Nitrite, UA (test NEGATIVE NEGATIVE code = 5802-4) Leukocyte esterase, TRACE NEGATIVE A UA (test code = 5799-2) WBC, UA (test code = NONE SEEN See_Comment [Autom ated 5821-4) message] The system which generated this result transmitted reference range : < OR = 5 /HPF. The reference range was not used to interpr et this result as normal/abnormal . RBC, UA (test code = NONE SEEN See_Comment [Autom ated 13986-4) message] The system which generated this result transmitted reference range : < OR = 2 /HPF. The reference range was not used to interpr et this result as normal/abnormal . Squamous epithelial NONE SEEN See_Comment [Automa kelly cells, UA (test code message ] The = 73865-5) system which generated this result transmitted reference range : < OR = 5 /HPF. The reference range was not used to interpr et this result as normal/abnormal . Bacteria, UA (test NONE SEEN NONE SEEN /HPF code = 5769-5) Hyaline casts, UA NONE SEEN NONE SEEN /LPF (test code = 5796-8) GUILLERMINA (test code = FASTING:YES GUILLERMINA) FASTING: YES RAC (test code = Performing RAC) Organization Information: Site ID: RGA Name: [facility] Address: [address] [place] [phone] Director: Alexis Barragan Lab Interpretation Abnormal (test code = 23270-1) Souris MethodistCreatinine level, urine, [id number] 18:55:00 Test Item Value Reference Range Interpretation Comments Creatinine, urine, 42 mg/dL 20-275 random (test code = 2161-8) GUILLERMINA (test code = FASTING:YES FASTING: YES GUILLERMINA) RAC (test code = Performing Organization RAC) Information: Site ID: [facility] Address: [address] [place] [phone] Director: Alexis AhumadaProtein, urine, [id number] 18:55:00 Test Item Value Reference Range Interpretation Comments Protein, urine 5 mg/dL 5-24 random (test code = 2888-6) GUILLERMINA (test code = FASTING:YES FASTING: YES GUILLERMINA) RAC (test code = Performing Organization RAC) Information: Site ID: [id number] Name: [facility] Address: [address] [place] [phone] Director: Alexis AhumadaTotal iron binding [id number] 18:55:00 Test Item Value Reference Range Interpretation Comments Iron level (test 71 See_Comment [Automated code = 2498-4) message] The system which generated this result transmit kelly reference range : 45 - 160 mcg/dL . The reference range was not u sed to interpret th is result as normal/abnormal . Iron binding 388 See_Comment [Automated capacity (test message] The code = 2500-7) system which generated this result transmit kelly reference range : 250 - 450 mcg/d L (calc). The reference range was not used to interpret this result as normal/abnormal . Iron saturation 18 See_Comment [Automated (test code = message] The 2502-3) system which generated this result transmit kelly reference range : 16 - 45 % (calc ). The reference range was not u sed to interpret th is result as normal/abnormal . GUILLERMINA (test code = FASTING:YES GUILLERMINA) FASTING: YES RAC (test code = Performing RAC) Organization Information: Site ID: A Name: [facility] Address: [address] [place] [phone] Director: Alexis VasquesistLipid [id number] 21:55:00 Test Item Value Reference Range Interpretation Comments Cholesterol, total 145 mg/dL <200 (test code = 2093-3) HDL cholesterol 61 mg/dL See_Comment [Automated (test code = 2085-9) message ] The system which generated this result transmitted reference range : > OR = 50. The reference range was not used to interpret this result as normal/abnormal . Triglycerides (test 67 mg/dL <150 code = 2571-8) LDL cholesterol 70 mg/dL (calc) Reference ra nge: calculated (test <100 Desira ble code = 31953-6) range <100 m g/dL for primary prevention; <7 0 mg/dL for patients with C HD or diabetic patients with > or = 2 CHD risk factors. LDL-C is now calculated using the Tyrell calculation, which is a validated novel method providin g better accuracy than the Friedewald equation in the estimation of LDL-C. Efrain S S et al. POLI. 2013;310(19): 8075-5608 (http://educati on .Authentic Response .com/faq/LRQ881 ) Cholesterol/HDL 2.4 See_Comment [Automated ratio (test code = message] The 9830-1) system which generated this result transmitted reference range : <5.0 (calc). Th e reference range was not used to interpret this result as normal/abnormal . Non-HDL cholesterol 84 See_Comment For gavi ents with (test code = diabetes plus 1 22698-8) major ASCVD ris k factor, treatin g to a non-HDL-C goal of <100 mg/dL (LDL-C of <70 mg/dL) is considered a therapeutic option. [Automated message] The system which generated this result transmitted reference range : <130 mg/dL (calc). The reference range was not used to interpret this result as normal/abnormal . GUILLERMINA (test code = FASTING:YES GUILLERMINA) FASTING: YES RAC (test code = Performing RAC) Organization Information: Site ID: RGA Name: [facility] Address: [address] [place] [phone] Director: Alexis Barragan [facility] lab [id number] 13:35:52[place] OPERATIVE REPORT PATIENT NAME: KRISH PARMAR NO: [id number] OF : 1940 DATE OF ADMISSION: 04/17/2020DATE OF OPERATION: 04/17/2020 SURGEON: RAUL MONTESITTING PHYSICIAN: REMBERTO WOODY MD GIS WEB DEVELOPER:Dr. Greg Parker. 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 TITLE OF OPERATION:Attempted PTCA right coronary artery. ESTIMATED BLOOD LOSS:30 mL. COMPLICATIONS:None. OPERATIVE COURSE:After informed consent was obtained from the patient and with appropriatetime-out procedure called,the patient was placed on the cardiac catheterizationtable. Both groins were cleaned and prepared in the usual fashion. The rightgroin was chosen for access. She received conscious sedation with Versed andfentanyl and was continuously monitored by myself and the circulating nurseincluding end-tidalCO2, oxygenation, blood pressure, heart rate, andrespiration. She tolerated the anesthetic portion well. The right femoral artery was then entered without difficulty using a zjqftxca95-iesae AMC needle. A 6-Egyptian sheath was utilized for arterial access. Thepatient received Angiomax with ACT greater than 230 seconds prior to wirepassage. We then attempted to cannulate the ostium of the right coronaryultimately using 8 different guides. Please refer to the nurse's notes fordetailed listing. Cannulation was extraordinarily difficult due to the factthat the patient had 2 stents previously placed in the ostium of the rightcoronary, one of which extended in 1 to 2 mm into the aortic cusp. santos Mera ultimately able to come near successful cannulation with an AL 0.75 guideand were able to cannulate with an AL1 guide. However, attempts at wire passageacross the stenosis were impossible due to dislodgement of the guide and for allpractical purposes a subtotal occlusion of the vessel. There was a channelnoted on the one time we were able to get a good angiogram, but this may verywell have been a vasa vasorum channel itself representing a total occlusion. The last wire chosen was a ChoICE PT wire. This was able to get to the ostiumof the channel noted above, but we could not advance any type of device. Thus,with the patient hemodynamically stable, the procedure was aborted. The cyndi ngcatheter was withdrawn. Right femoral angiogram showed that the arteriotomy wasat the bifurcationof the superficial femoral and profunda and thus no closuredevice was utilized. She was taken off the catheterization table andtransported to the PACU for sheath removal and ACT is less than 170 seconds. Weanticipate discharge in approximately 6 hours from now or 4 hours after sheathpull provided she is hemodynamically stable. We will attempt to treat hercoronary artery disease medically. [id number]: 04/17/2020 12:06:05 Conf/ / Ref#: [id number] CC: [id number]/[facility] [id number] 13:35:52[place] OPERATIVE REPORT PATIENT NAME: KRISH PARMAR NO: [id number] OF : 1940 DATE OF ADMISSION: 04/17/2020DATE OF OPERATION: 04/17/2020 SURGEON: REMBERTO DALTON MDAITTING PHYSICIAN: REMBERTO WOODY MD GIS WEB DEVELOPER:Dr. Greg Parker. 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 TITLE OF OPERATION:Attempted PTCA right coronary artery. ESTIMATED BLOOD LOSS:30 mL. COMPLICATIONS:None. OPERATIVE COURSE:After informed consent was obtained from the patient and with appropriatetime-out procedure called,the patient was placed on the cardiac catheterizationtable. Both groins were cleaned and prepared in the usual fashion. The rightgroin was chosen for access. She received conscious sedation with Versed andfentanyl and was continuously monitored by myself and the circulating nurseincluding end-tidalCO2, oxygenation, blood pressure, heart rate, andrespiration. She tolerated the anesthetic portion well. The right femoral artery was then entered without difficulty using a jzszzvqa90-zdxpc AMC needle. A 6-Egyptian sheath was utilized for arterial access. Thepatient received Angiomax with ACT greater than 230 seconds prior to wirepassage. We then attempted to cannulate the ostium of the right coronaryultimately using 8 different guides. Please refer to the nurse's notes fordetailed listing. Cannulation was extraordinarily difficult due to the factthat the patient had 2 stents previously placed in the ostium of the rightcoronary, one of which extended in 1 to 2 mm into the aortic cusp. adrian Merae ultimately able to come near successful cannulation with an AL 0.75 guideand were able to cannulate with an AL1 guide. However, attempts at wire passageacross the stenosis were impossible due to dislodgement of the guide and for allpractical purposes a subtotal occlusion of the vessel. There was a channelnoted on the one time we were able to get a good angiogram, but this may verywell have been a vasa vasorum channel itself representing a total occlusion. The last wire chosen was a ChoICE PT wire. This was able to get to the ostiumof the channel noted above, but we could not advance any type of device. Thus,with the patient hemodynamically stable, the procedure was aborted. The cyndi ngcatheter was withdrawn. Right femoral angiogram showed that the arteriotomy wasat the bifurcationof the superficial femoral and profunda and thus no closuredevice was utilized. She was taken off the catheterization table andtransported to the PACU for sheath removal and ACT is less than 170 seconds. Weanticipate discharge in approximately 6 hours from now or 4 hours after sheathpull provided she is hemodynamically stable. We will attempt to treat hercoronary artery disease medically. [id number]: 04/17/2020 12:06:05 Conf/ / Ref#: [id number] CC: [id number]/[facility]ERT[facility] PCI [id number] 13:35:52 [place] OPERATIVE REPORT PATIENT NAME: KRISH PARMAR NO: [id number] OF : 1940 DATE OF ADMISSION: 04/17/2020DATE OF OPERATION: 04/17/2020 SURGEON: RAUL MONTESITTING PHYSICIAN: REMBERTO WOODY MD GIS WEB DEVELOPER:Dr. Greg Parker. 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 TITLE OF OPERATION:Attempted PTCA right coronary artery. ESTIMATED BLOOD LOSS:30 mL. COMPLICATIONS:None. OPERATIVE COURSE:After informed consent was obtained from the patient and with appropriatetime-out procedure called,the patient was placed on the cardiac catheterizationtable. Both groins were cleaned and prepared in the usual fashion. The rightgroin was chosen for access. She received conscious sedation with Versed andfentanyl and was continuously monitored by myself and the circulating nurseincluding end-tidalCO2, oxygenation, blood pressure, heart rate, andrespiration. She tolerated the anesthetic portion well. The right femoral artery was then entered without difficulty using a rnddysbc90-sslga AMC needle. A 6-Egyptian sheath was utilized for arterial access. Thepatient received Angiomax with ACT greater than 230 seconds prior to wirepassage. We then attempted to cannulate the ostium of the right coronaryultimately using 8 different guides. Please refer to the nurse's notes fordetailed listing. Cannulation was extraordinarily difficult due to the factthat the patient had 2 stents previously placed in the ostium of the rightcoronary, one of which extended in 1 to 2 mm into the aortic cusp. santos Mera ultimately able to come near successful cannulation with an AL 0.75 guideand were able to cannulate with an AL1 guide. However, attempts at wire passageacross the stenosis were impossible due to dislodgement of the guide and for allpractical purposes a subtotal occlusion of the vessel. There was a channelnoted on the one time we were able to get a good angiogram, but this may verywell have been a vasa vasorum channel itself representing a total occlusion. The last wire chosen was a ChoICE PT wire. This was able to get to the ostiumof the channel noted above, but we could not advance any type of device. Thus,with the patient hemodynamically stable, the procedure was aborted. The cyndi ngcatheter was withdrawn. Right femoral angiogram showed that the arteriotomy wasat the bifurcationof the superficial femoral and profunda and thus no closuredevice was utilized. She was taken off the catheterization table andtransported to the PACU for sheath removal and ACT is less than 170 seconds. Weanticipate discharge in approximately 6 hours from now or 4 hours after sheathpull provided she is hemodynamically stable. We will attempt to treat hercoronary artery disease medically. [id number]: 04/17/2020 12:06:05 Conf/ / Ref#: [id number] CC: [id number]/Caren BARRON [facility] 12 [id number] 01:01:06 Test Item Value Reference Range Interpretation Comments Ventricular rate (test 68 code = 253) Atrial rate (test code 68 = 255) NE interval (test code 168 = 266) QRSD interval (test 152 code = 260) QT interval (test code 478 = 264) QTC interval (test code 508 = 265) P axis 1 (test code = 30 267) QRS axis 1 (test code = 14 268) T wave axis (test code 105 = 270) EKG impression (test Normal sinus code = 273) rhythm-Left bundle branch block-Abnormal ECG-In automated comparison with ECG of 10-MAR-2020 12:08,-Left bundle branch block is now present- Michael Garcia transcranial Doppler intracranial arteries emboli detect wo inj (TCD w monitoring)2020-03-31 20:57:00Interface, Radiology Results In - 03/31/2020 8:57 PM CDT [facility] Transcranial Doppler Report (TCD) [address] [place] [address]Zrf.Name: SAHRA PARMAR Pat.ID: [id number] .Date: 03/31/2020 Refer.MD: LEÓN COYNE MD Exam Time: 7:45:00 AM Study Type:TCD Age: 2 1940,79Y Sex: FEMALE Sonogrphr: Raul Ayala RDMS, RVT Pat. 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 left neck pain while raisingarm over head. Occluded left subclavian artery.Procedures: Colorflow, Pulsed wave DopplerRace: C SUMMARY: TECHNIQUE: Transcranial Doppler was used to monitor the brain through the lefttemporal lobe. The left MCA was monitored throughout the exam; rightPCA was not insonated due to suboptimal right temporal windowfrompre-op TCD. Clamp over the carotid artery demonstrated a drop in peaksystolic velocities; flow dropped to 95% the baseline. 7 HITS noted at10:21:49; revascularization of the left carotid artery wasnotedshortly after. 4 spontaneous HITS noted during closing.Baseline was reset at 9:35; HR: 55; MAP of 64; MFV 45 cm/s, PI. 1.38PRELIMINARY FINDINGS:1. Total of about 11 HITS counted throughout the pro cedure.2. Minor drop in velocities noted upon clamping of the left carotidartery.3. No evidence ofwaveform morphology noted post-op.PHYSICIAN INTERPRETATION:Total of about 11 HITS counted throughoutthe procedure. Nomalperfusion or obstruction noticed. Minor drop in velocities noted upon clamping of the left carotidartery. FINDINGS: Signed 03/31/2020 08:57 Marleen Rodriguez MD, [facility] Urine [id number] 13:50:13 Test Item Value Reference Range Interpretation Comments Urine culture Mixed tenisha Specimen isolate (test 10-4 col/cc InformationSpe [facility] code = 44461-1) Source: Urin eSpecimen Site: [facility] MethodistArterial blood gas, [id number] 10:49:34 Test Item Value Reference Range Interpretation Comments pH, arterial (test code 7.39 7.35-7.45 = 2744-1) pCO2, arterial (test 38 See_Comment [Autom ated message] code = 2019-02) The system [employer] generated this result transmitted ref erence range: 35 - 45 mmHg. The reference r elroy was not used to interpret this result as normal/abnor mal. pO2, arterial (test code 356 See_Comment H [A utomated message] = 2703-7) The system C$ [employer] generated this result transmitted ref erence range: 80 - 90 mmHg. The reference r leroy was not used to interpret this result as normal/abnor mal. Temperature, Celsius 37.0 Degrees C (test code = 8310-5) O2 saturation, arterial 100 % 95-100 (test code = 2708-6) pH, arterial corrected 7.39 (test code = 54130-0) pCO2, arterial corrected 38 mmHg (test code = 69854-4) pO2, arterial corrected 356 mmHg (test code = 82869-6) Base excess, arterial -2 See_Comment [Auto mated message] (test code = 1925-7) The [facility] tem which generated this result transmitted ref erence range: -2 - 2 m Eq/L. The reference r leroy was not used to interpret this result as normal/abnor mal. Lab Interpretation (test Abnormal code = 16186-0) Michael MethodistGlucose level, [id number] 10:49:34 Test Item Value Reference Range Interpretation Comments Glucose, syringe (test code = 131 mg/dL 65-99 H 2345-7) Lab Interpretation (test code = Abnormal 78434-1) Michael MethodistHemoglobin, [id number] 10:49:34 Test Item Value Reference Range Interpretation Comments Hemoglobin, syringe (test code = 8.2 g/dL 12.0-16.0 L 718-7) Lab Interpretation (test code = Abnormal 46189-1) Michael MethodistIonized calcium, [id number] 10:49:34 Test Item Value Reference Range Interpretation Comments Ionized calcium, arterial (test 1.16 mmol/L 1.11-1.32 code = 37435-8) Michael MethodistPotassium, [id number] 10:49:34 Test Item Value Reference Range Interpretation Comments Potassium, syringe 3.8 See_Comment [Automat ed message] The (test code = 2007) system Ramamia generated this result tra nsmitted reference range : 3.5 - 5.0 mEq/L. The refe rence range was not used to interpret this result as normal/abnormal . Michael MethodistSodium level, [id number] 10:49:34 Test Item Value Reference Range Interpretation Comments Sodium, syringe (test 133 See_Comment L [Auto mated message] code = 2947-0) The system Ramamia generated this result transmitted ref erence range: 135 - 14 8 mEq/L. The refe rence range was not u sed to interpret this result as normal/abnor mal. Lab Interpretation (test Abnormal code = 26391-7) Souris MethodistArterial [id number] 08:59:53Bryanna Escobar CRNA 03/31/2020 9:01 AMArterial linePerformed by: Bryanna Escobar CRNAAuthorized by: Ej Molina MD Patient Location: ORStart Time: 03/31/2020 7:45 AMEnd Time: 03/31/2020 7:53 AMStaff: Anesthesiologist: Ej Molina MD Resident/COMMERCIAL CREDIT OFFICER/AA: Bryanna Escobar CRNA Performed by: AnesthesiologistPre- procedure: patient identified, IV checked, site and side verified, risks and benefits discussed, procedure verified, surgical consent complete, patient position confirmed,monitors and equipment checked, pre-op evaluation complete and timeout performed prior to procedureMSBT: antiseptic used, all elements of maximal sterile barrier technique followed, hand hygiene performed, cap/gown used by other personnel and solutions labeled Indications: Indications: hemodynamic monitoring Anesthesia: Anesthesia: GeneralProcedure Details: Arterial Line placement: Placedpost induction Line placement site: RadialLine placement side: Right Arterial line gauge: 20 GNumber of attempts: 2 Ultrasound guidance used: Yes Post-procedure: Post-procedure: Sterile dress ing applied Post procedure circulation, sensation, movement: Normal and unchanged Patient tolerance: Patient tolerated the procedure well with no immediate complicationsNotes: Attempt x 1 by GINI, unsuccessful. Manual pressure held x 5 minutes. No hematoma; atraumatic.Attempt x 1 by hailee PAIGE ul. No hematoma; atraumatic.Line draws and flushes well. Adequate waveform when transduced.[facility]villeOymbxdcwuVebnst0779-00-22 08:27:08Bryanna Escobar CRNA 03/31/2020 8:28 AMAirwayDate/Time: 03/31/2020 7:42 AMPerformed by: Bryanna Escobar CRNAAuthorized by: Ej Molina MD Location: ORUrgency: ElectiveDifficult Airway: NoAnesthesiologist: Ej Molina MDPerformed by: anesthesiologistPreoxygenated with 100% O2: Yes C-spine Precautions Maintained Throughout: Yes Mask Ventilation: Easy maskFinal Airway Type: Endotracheal airwayFinal Endotracheal Airway: ETTCuffed: Yes Technique Used: Direct laryngoscopyDevices/Methods Used in Placement: Intubating styletInsertion Site: OralBlade Type: MillerLaryngoscope Blade/Videolaryngoscope Blade Size: 2ETT Size (mm): 7.0Cuff at minimum occlusion pressure: Yes Measured from: LipsETT to Lips (cm): 21Placement Verified by: CO2 detection, direct visualization and equal breath sounds Laryngoscopic view: Grade IIa - partial view of glottisNumber of Attempts at Approach: 1 Pt ramped into sniffing position for alignment of airway axes.Denitrogenation > 3 min. Atraumatic laryngoscopy and intubation. Eyelids taped fully closed after loss of lash reflex. DL x 1, visualized ETT passing through vocal cords. Placement confirmed: bilateral, equal breath sounds, +etCO2. Head and neck maintained in neutral alignment with spine throughout. Lips/dentition/oral structures as preinduction. No injury to vocal cords or oropharynx. All facial structures and occiput protected from pressure/compression.All bony prominences free of pressure. All pressure points padded.B arms wrapped securely in foam padding, tucked at pt's sides.[facility] MethodistUrinalysis screen and microscopy, with reflex to [id number] 11:03:00 Test Item Value Reference Range Interpretation Comments Specimen site (test Clean catch code = 3162465) Color, UA (test code = Straw 5778-6) Appearance, UA (test Clear code = 5767-9) Specific gravity, UA 1.010 1.001-1.035 (test code = 5811-5) pH, UA (test code = 6.0 5.0-8.5 5803-2) Protein, UA (test code Negative Negative = 95034-8) Glucose, UA (test code Negative Negative = 80773-1) Ketones, UA (test code Negative Negative = 2514-8) Bilirubin, UA (test Negative Negative code = 5770-3) Blood, UA (test code = Negative Negative 5794-3) Nitrite, UA (test code Negative Negative = 5802-4) Urobilinogen, UA (test <2.0 <2.0 code = 24972-7) Leukocyte esterase, UA Large Negative A (test code = 5799-2) Epithelial cells, UA 4 See_Comment [Autom ated (test code = 5787-7) message ] The system which generated this result transmitted reference range : /HPF. The refer ence range was not u sed to interpret th is result as normal/abnormal . Round epithelial cells, 1 See_Comment [Au tomated UA (test code = message] The system 37753-8) which generated this result transmitted reference range : 0 - 1 /HPF. The reference range was not used to interpret this result as normal/abnormal . WBC, UA (test code = 7 See_Comment H [Autom ated 5821-4) message] The sy stem which generated this result transmitted reference range : 0 - 4 /HPF. The reference range was not used to interpret this result as normal/abnormal . RBC, UA (test code = 1 See_Comment [Autom ated 05506-2) message] The sy stem which generated this result transmitted reference range : 0 - 5 /HPF. The reference range was not used to interpret this result as normal/abnormal . Bacteria, UA (test code Few None seen = 83541-5) Yeast, UA (test code = None seen 15843-0) Yeast with None seen pseudohyphae, UA (test code = 91285-6) Hyaline casts, UA (test 1 See_Comment [Au tomated code = 5796-8) message] The system which generated this result transmitted reference range : /LPF. The refer ence range was not u sed to interpret th is result as normal/abnormal . Lab Interpretation Abnormal (test code = 20121-9) [facility] MethodistXR Chest 2 [id number] 08:22:58Hm Interface, Radiology Results 03/30/2020 8:26 AM CDT EXAMINATION: XR CHEST 2 VWCLINICAL HISTORY: Z01.810 Encounter for preprocedural cardiovascular examination, I65.22 Occlusion and stenosis of left carotid artery, preop testing CAD CAB w EVHCOMPARISON: NoneIMPRESSION:No acute abnormality 2 view chestMild areas of interstitial scarring throughout each lung.The heart is not enlarged. Atherosclerosis arch aortaModerate hiatal herniaModerate thoracic kyphosis. Underlying [id number]St[facility] [id number] 09:45:06 GIS WEB DEVELOPER:None.TITLE OF OPERATION:1. Left heart catheterization, selective coronary arteriograms.2. Arch aortogram with bilateral selective carotid and left subclavianangiogram.PREOPERATIVE DIAGNOSES:1. 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 Occlusion and/or stenosis of arteries of the upper extremities with restpain.3. Bilateral carotid artery occlusive disease, currently asymptomatic.POSTOPERATIVE DIAGNOSES:1. 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 Occlusion and/or stenosis of arteries of the upper extremities with restpain.3. Bilateral carotid artery occlusive disease, currently asymptomatic.ANESTHESIA:Conscious sedation with Versed and fentanyl.ESTIMATED BLOOD LOSS:10 mL.COMPLICATIONS:None.OPERATIVE COURSE:After informed consent was obtained from the patient and with appropriatetime-out procedure was called, the patient was placed on the cardiaccatheterization table. Both groins were cleaned and prepared in the usualfashion and the right groin chosen for access. The patient then receivedconscious sedation with Versed and fentanyl and was continuously monitored bymyself and the circulating nurseincluding end-tidal CO2, oxygenation, bloodpressure, heart rate, and respiration. She tolerated the anesthetic portionwell. Following this, the right femoral artery was entered under lidocaineanesthesia without difficulty. A short 4-Egyptian arterial catheter was utilizedfor access. In sequential fashion, JL4 and 3DRC catheters were utilized tovisualize the left and right main coronaries. Following this, the arch vesselswere selectively visualized. The patient had extreme tortuosity of her aortaand a type 2 aortic arch. This did make selective cannulation somewhatcomplicated. Ultimately, I was able to utilize a 3DRC diagnostic catheter aswell as a 4-Egyptian JV2 to selectively cannulate the left subclavian, left commonand right innominate arteries. This allowed us to take selective pictures underdigital subtraction imaging. Once accomplished, all of the studies werecarefully reviewed.The patient has an RCA dominant system. There are stents in the ostial andproximal right coronary with focal 95% in-stent restenosis noted. There is 20%to 30% plaquing before the takeoff of the right ventricular branch. Theposterior descending is free of disease. On the left side, the left main isnormal. The proximal LAD has 20% to 30% calcific plaquing before the firstseptal account installation specialist and a medium-size first diagonal. The second diagonal anddistal LAD themselves are relatively free of disease. The circumflex is notedto have multiple OM branches, all of which are free of disease. The largest OMis the OM2 and the OM4.As stated, she has a type 2 aortic arch. The right innominate is very tortuouswith less than 50% concentric calcific stenosis. It divides into 2 branches. The right common to internal carotid artery stent previously placed is widelypatent. The external carotid perfused as well through the stent struts. Thereis a 30% calcific stenosis at the takeoff of the left subclavian proximal to anextremely large right vertebral artery. The left carotid takeoff is verytortuous. There is a 50% to 60% stenosis in the distal common and proximalinternal carotid artery and 70% stenosis of the external carotid artery. Theleft subclavian artery is flush occluded at the takeoff. I did not seevisualization of the distal left subclavian primarily because we did not do across filling study.As a result of all of the above, the procedure was terminated. The patient wastaken off the catheterization table and transported back to the PACU for sheathremoval and anticipated discharge in 3 hours. In terms of intervention, we willbe treating her arch vessels conservatively at this point with theexception ofthe fact that she will require a left carotid subclavian bypass. In terms ofher coronaries, she will require intervention to the right coronary artery,which will likely consist of a PTCA and radiation therapy. I am not in favor ofsending her for a single-vessel RCA bypass unless she has to become completelyunstable.Overall, she tolerated the procedure well.[facility] Chest W Wo Contrast 2020-03-24 15:32:19Hm Interface, Radiology Results 03/24/2020 3:35 PM CDT EXAMINATION: CT ANGIOGRAM CHEST W WO CONTRASTCLINICAL HISTORY: 79 years Female Occlusion and stenosis of left carotid artery, Left subclavian occlusion carotid arteriesTECHNIQUE: Multiple CT angiographic images of the chest were obtained during intravenous administration ofcontrast. Multiple computerized reformatted images as well as 3-D volume rendered images were also obtained. CT imaging was performed with iterative reconstruction techniques and/or automated exposure c ontrol to reduce radiation dose. COMPARISON: None.FINDINGS:VASCULATURE:Aortic root: 3.4 x 3.5 cm maximal coronal by sagittal oblique diameter, which is at the upper limits of normal.Sinotubular junction 2.7 cm in maximal coronal diameter, which is normal.Mid ascending thoracic aorta: 3.0 cm in maximal coronal diameter, which is normal.Aortic arch: Normal three-vessel branching. Moderate calcified plaque. Normal in caliber.Descending thoracic aorta: Minimal tortuosity. Mild multifocal mixed plaque. Normal caliber.Right:Brachiocephalic: Moderate soft plaque at the ostium with mild associated luminalnarrowing.Common carotid: Marked tortuosity. Normal in caliber.Subclavian: Mild calcified plaque at its takeoff with mild associated luminal narrowing. Additional mild calcified plaque at the takeoff of the vertebral artery.Vertebral artery: Streak artifact limits full evaluation of its takeoff. Mild ostial calcified plaque. Remainder of artery is normal in course and caliber.Left:Common carotid: Moderate ostial calcified plaque with moderate associated luminal narrowing. Marked tortuosity. Normal in caliber.Subclavian: Marked calcified plaque at the ostium and proximally which is near occlusive toocclusive. Reconstitution of flow just proximal to the takeoff of the vertebral artery. Findings aresuspicious for subclavian steal syndrome. If indicated, this could be further evaluated with bilateral carotid duplex ultrasound.Limited abdominal aorta: Mild multifocal mixed plaque with mild multifocal luminal narrowing.Celiac axis: Conventional anatomy. Mild multifocal calcified plaque scattered throughout the splenic artery with mild multifocal luminal narrowing.Superior mesenteric artery: Partially visualized and unremarkable.Full evaluation of systemic and portal venous structures limited by contrast bolus timing and [id number]. They are unremarkable.Main pulmonary artery diameter is normal.LOWER NECK: Thyroid is either surgically absent. Several subcentimeter short axis lower cervical lymph nodes on the left which are below size criterion for adenopathy. Remainder of soft tissues the neck are normal.LUNGS and PLEURA: Trachea is normal. Moderate concentric thickening of the bronchial and bronchiolar quigley diffusely. Traction bronchiectasis and bronchiolectasis within the posterior aspect of the right upper lobe. Adjacent calcified surgical scar/material compatible with right resection in that location. Moderate diffuse mosaic attenuation. In this patient with history of COPD and evidence of airway wall thickening and partial collapse, this is most likely secondary to air trapping from small airways disease. 3 mm diameter calcified granuloma posterior and lateral aspect right upperlobe abutting the minor fissure (series 302, slice 44). No pleural effusion or pneumothorax.HEART and MEDIASTINUM: Normal fatty involution the thymus. Moderately sized hiatal hernia containing the majority gastric fundus and a portion the gastric body. Minimal tortuosity of the herniated stomach without evidence of volvulus, strangulation, or obstruction. Heart size is normal. Moderate calcificationmitral annulus. Minimal calcination aortic valve. Three- vessel coronary artery disease. Small, simple pericardial effusion.No mediastinal, hilar, internal mammary, bilateral axillary adenopathy.UPPER AB DOMEN: Status post cholecystectomy. No suspicious abnormality.BONES: Small degenerative cyst anterior aspect left humeral head (series 304, slice 25). Osteopenia. No suspicious osseous or soft tissue structures.IMPRESSION:1.Marked calcified plaque ostium and proximal left subclavian artery which is near occlusive to occlusive, suspicious for subclavian steal syndrome. If indicated, this could be further evaluated with bilateral carotid duplex ultrasound.2.Moderate mosaic attenuation diffusely throughout both lungs likely secondary to chronic bronchitis and small airways disease.3.Status post thyroid ectomy and right upper lobe wedge resection.[facility]-[id number], KASSIDY BETTENCOURT MD, personally reviewed the images and resident's/fellow's findings and agree with the final report.[facility] Neck W Wo Contrast 2020-03-24 14:20:28Hm Interface, Radiology Results 03/24/2020 2:23 PM CDT EXAMINATION: CT ANGIOGRAM NECK W WO CONTRASTCLINICAL HISTORY: I65.22 Occlusion and stenosis of left carotid artery, Left subclavian occlusion carotid arteriesCOMPARISON: NoneTECHNIQUE: Imaging of the cervical circulation was obtained from the upper thorax to the skull base during the arterial phase of enhancement. MIP multiplanar and 3D reconstructed images were performed on a separate workstation.FINDINGS:The origin of the left common and left subclavian arteries are heavily calcified. There is a stent in the right common to right internal carotid arteries which appears widely patent. There is no stenosis of the internal carotid artery on the right the right common carotid artery is extremely tortuous. The origin of the left internal carotid artery also has a loop and there is stenosis at the origin of the internal carotid artery of approximately 70% but the accuracy of the measurement may be off due to the significant degree of calcification. The left subclavian artery is most likely occluded. Cerebral arteriography can better delineates this and look for subclavian artery steal. There is 0% stenosis of the left internal carotid origin by NASCET criteriaThe vertebral arteries are patent throughout the visualized cervical segments without significant stenosis.IMPRESSION:Most likely the left subclavian artery origin is occluded as it is heavily calcified. There may be subclavian steal syndrome. There is significant stenosis approaching 70- 75% at the origin of theleft common carotid artery at the arch. There is significant tortuosity of the great vessels. Cerebral arteriography may be of benefit to evaluate for subclavian steal.[facility]ouris MethodistTSH reflex to T4 2020-03-07 06:09:00 Test Item Value Reference Range Interpretation Comments TSH (test code = 0.034 See_Comment L [Automated 64780-7) message] The system which generated this result transmitted reference range : 0.450 - 4.500 uIU/mL. The reference range was not used to interpret this result as normal/abnormal . GUILLERMINA (test code = GUILLERMINA) Performed at: 01 - [facility] [id number] Director: Miguel Ángel Jordan MD, Phone: [phone] Lab Interpretation Abnormal (test code = 17402-3) [facility] MethodistHEMOGLOBIN AND [id number] 11:51:00 Test Item Value Reference Range Interpretation Comments HEMOGLOBIN (BEAKER) (test code = 8.3 GM/DL 11.2-15.7 L 410) HEMATOCRIT (BEAKER) (test code = 24.8 % 34.1-44.9 L 411) IRON, TIBC, % SAT. (WITHOUT FERRITIN)2019-06-30 09:02:00 Test Item Value Reference Range Interpretation Comments IRON (BEAKER) (test code = 547) 169.0 ug/dL 40.0-160.0 H TOTAL IRON BINDING CAPACITY 296 ug/dL 250-450 (BEAKER) (test code = 769) IRON % SATURATION (2) (BEAKER) 57 % 20-55 H (test code = 2590) [id number] 06:02:00 Test Item Value Reference Range Interpretation Comments FERRITIN (BEAKER) (test code = 361) 57 ng/mL 5-275 BASIC METABOLIC [id number] 05:01:00 Test Item Value Reference Range Interpretation Comments SODIUM (BEAKER) 136 meq/L 136-145 (test code = 381) POTASSIUM (BEAKER) 3.9 meq/L 3.5-5.1 (test code = 379) CHLORIDE (BEAKER) 112 meq/L 98-107 H (test code = 382) CO2 (BEAKER) (test 21 meq/L 22-29 L code = 355) BLOOD UREA NITROGEN 20 mg/dL 7-21 (BEAKER) (test code = 354) CREATININE (BEAKER) 0.92 mg/dL 0.57-1.25 (test code = 358) GLUCOSE RANDOM 96 mg/dL 70-105 (BEAKER) (test code = 652) CALCIUM (BEAKER) 7.9 mg/dL 8.4-10.2 L (test code = 697) EGFR (BEAKER) (test 59 mL/min/1.73 ESTIMA KELLY GFR IS code = 1092) sq m NOT ACCURATE CREATININE CLEARANCE IN PREDICTING GLOMERULAR FILTRATION RATE . ESTIMATED GFR I S NOT APPLICABLE FOR DIALYSIS PATIEN TS. HEMOGLOBIN AND [id number] 04:51:00 Test Item Value Reference Range Interpretation Comments HEMOGLOBIN (BEAKER) (test code = 7.7 GM/DL 11.2-15.7 L 410) HEMATOCRIT (BEAKER) (test code = 23.0 % 34.1-44.9 L 411) CBC W/PLT COUNT & AUTO [id number] 04:51:00 Test Item Value Reference Range Interpretation Comments WHITE BLOOD CELL COUNT (BEAKER) 6.8 K/ L 3.5-10.5 (test code = 775) RED BLOOD CELL COUNT (BEAKER) 2.55 M/ L 3.93-5.22 L (test code = 761) HEMOGLOBIN (BEAKER) (test code = 7.7 GM/DL 11.2-15.7 L 410) HEMATOCRIT (BEAKER) (test code = 23.0 % 34.1-44.9 L 411) MEAN CORPUSCULAR VOLUME (BEAKER) 90.2 fL 79.4-94.8 (test code = 753) MEAN CORPUSCULAR HEMOGLOBIN 30.2 pg 25.6-32.2 (BEAKER) (test code = 751) MEAN CORPUSCULAR HEMOGLOBIN CONC 33.5 GM/DL 32.2-35.5 (BEAKER) (test code = 752) RED CELL DISTRIBUTION WIDTH 13.5 % 11.7-14.4 (BEAKER) (test code = 412) PLATELET COUNT (BEAKER) (test 194 K/CU MM 150-450 code = 756) MEAN PLATELET VOLUME (BEAKER) 10.5 fL 9.4-12.3 (test code = 754) NUCLEATED RED BLOOD CELLS 0 /100 WBC 0-0 (BEAKER) (test code = 413) NEUTROPHILS RELATIVE PERCENT 68 % (BEAKER) (test code = 429) LYMPHOCYTES RELATIVE PERCENT 18 % (BEAKER) (test code = 430) MONOCYTES RELATIVE PERCENT 8 % (BEAKER) (test code = 431) EOSINOPHILS RELATIVE PERCENT 6 % (BEAKER) (test code = 432) BASOPHILS RELATIVE PERCENT 1 % (BEAKER) (test code = 437) NEUTROPHILS ABSOLUTE COUNT 4.58 K/ L 1.56-6.13 (BEAKER) (test code = 670) LYMPHOCYTES ABSOLUTE COUNT 1.19 K/ L 1.18-3.74 (BEAKER) (test code = 414) MONOCYTES ABSOLUTE COUNT (BEAKER) 0.52 K/ L 0.24-0.36 H (test code = 415) EOSINOPHILS ABSOLUTE COUNT 0.39 K/ L 0.04-0.36 H (BEAKER) (test code = 416) BASOPHILS ABSOLUTE COUNT (BEAKER) 0.04 K/ L 0.01-0.08 (test code = 417) IMMATURE GRANULOCYTES-RELATIVE 0 % 0-1 PERCENT (BEAKER) (test code = 2801) HEMOGLOBIN AND [id number] 22:14:00 Test Item Value Reference Range Interpretation Comments HEMOGLOBIN (BEAKER) (test code = 7.7 GM/DL 11.2-15.7 L 410) HEMATOCRIT (BEAKER) (test code = 23.2 % 34.1-44.9 L 411) HEMOGLOBIN AND [id number] 17:09:00 Test Item Value Reference Range Interpretation Comments HEMOGLOBIN (BEAKER) (test code = 7.2 GM/DL 11.2-15.7 L 410) HEMATOCRIT (BEAKER) (test code = 21.0 % 34.1-44.9 L 411) HEMOGLOBIN AND [id number] 07:17:00 Test Item Value Reference Range Interpretation Comments HEMOGLOBIN (BEAKER) (test code = 7.4 GM/DL 11.2-15.7 L 410) HEMATOCRIT (BEAKER) (test code = 22.3 % 34.1-44.9 L 411) BASIC METABOLIC [id number] 05:59:00 Test Item Value Reference Range Interpretation Comments SODIUM (BEAKER) 138 meq/L 136-145 (test code = 381) POTASSIUM (BEAKER) 3.5 meq/L 3.5-5.1 (test code = 379) CHLORIDE (BEAKER) 113 meq/L 98-107 H (test code = 382) CO2 (BEAKER) (test 20 meq/L 22-29 L code = 355) BLOOD UREA NITROGEN 39 mg/dL 7-21 H (BEAKER) (test code = 354) CREATININE (BEAKER) 1.05 mg/dL 0.57-1.25 (test code = 358) GLUCOSE RANDOM 89 mg/dL 70-105 (BEAKER) (test code = 652) CALCIUM (BEAKER) 7.8 mg/dL 8.4-10.2 L (test code = 697) EGFR (BEAKER) (test 51 mL/min/1.73 ESTIMA KELLY GFR IS code = 1092) sq m NOT ACCURATE CREATININE CLEARANCE IN PREDICTING GLOMERULAR FILTRATION RATE . ESTIMATED GFR I S NOT APPLICABLE FOR DIALYSIS PATIEN TS. HEMOGLOBIN AND [id number] 01:01:00 Test Item Value Reference Range Interpretation Comments HEMOGLOBIN (BEAKER) (test code = 7.8 GM/DL 11.2-15.7 L 410) HEMATOCRIT (BEAKER) (test code = 23.5 % 34.1-44.9 L 411) CBC W/PLT COUNT & AUTO [id number] 01:01:00 Test Item Value Reference Range Interpretation Comments WHITE BLOOD CELL COUNT (BEAKER) 7.0 K/ L 3.5-10.5 (test code = 775) RED BLOOD CELL COUNT (BEAKER) 2.64 M/ L 3.93-5.22 L (test code = 761) HEMOGLOBIN (BEAKER) (test code = 7.8 GM/DL 11.2-15.7 L 410) HEMATOCRIT (BEAKER) (test code = 23.5 % 34.1-44.9 L 411) MEAN CORPUSCULAR VOLUME (BEAKER) 89.0 fL 79.4-94.8 (test code = 753) MEAN CORPUSCULAR HEMOGLOBIN 29.5 pg 25.6-32.2 (BEAKER) (test code = 751) MEAN CORPUSCULAR HEMOGLOBIN CONC 33.2 GM/DL 32.2-35.5 (BEAKER) (test code = 752) RED CELL DISTRIBUTION WIDTH 12.8 % 11.7-14.4 (BEAKER) (test code = 412) PLATELET COUNT (BEAKER) (test 223 K/CU MM 150-450 code = 756) MEAN PLATELET VOLUME (BEAKER) 10.1 fL 9.4-12.3 (test code = 754) NUCLEATED RED BLOOD CELLS 0 /100 WBC 0-0 (BEAKER) (test code = 413) NEUTROPHILS RELATIVE PERCENT 64 % (BEAKER) (test code = 429) LYMPHOCYTES RELATIVE PERCENT 25 % (BEAKER) (test code = 430) MONOCYTES RELATIVE PERCENT 9 % (BEAKER) (test code = 431) EOSINOPHILS RELATIVE PERCENT 1 % (BEAKER) (test code = 432) BASOPHILS RELATIVE PERCENT 0 % (BEAKER) (test code = 437) NEUTROPHILS ABSOLUTE COUNT 4.46 K/ L 1.56-6.13 (BEAKER) (test code = 670) LYMPHOCYTES ABSOLUTE COUNT 1.77 K/ L 1.18-3.74 (BEAKER) (test code = 414) MONOCYTES ABSOLUTE COUNT (BEAKER) 0.61 K/ L 0.24-0.36 H (test code = 415) EOSINOPHILS ABSOLUTE COUNT 0.08 K/ L 0.04-0.36 (BEAKER) (test code = 416) BASOPHILS ABSOLUTE COUNT (BEAKER) 0.03 K/ L 0.01-0.08 (test code = 417) IMMATURE GRANULOCYTES-RELATIVE 0 % 0-1 PERCENT (BEAKER) (test code = 2801) [id number] 17:58:00 Test Item Value Reference Range Interpretation Comments PROTIME (BEAKER) (test code = 15.4 seconds 11.9-14.2 H 759) INR (BEAKER) (test code = 370) 1.3 <=5.9 PARTIAL THROMBOPLASTIN TIME 28.0 seconds 22.5-36.0 (BEAKER) (test code = 760) Effective 12/26/2018: PT Reference Range ChangeNew: 11.9-14.2 Previous: 11.7- 14.7RECOMMENDED COUMADIN/WARFARIN INR THERAPY RANGESSTANDARD DOSE: 2.0-3.0 Includes: PROPHYLAXIS for venous thrombosis, systemic embolization; TREATMENT for venous thrombosis and/or pulmonary embolus.HIGH RISK: Target INR is2.5-3.5 for patients wiht mechanical heart valves.BASIC METABOLIC [id number] 17:45:00 Test Item Value Reference Range Interpretation Comments SODIUM (BEAKER) 138 meq/L 136-145 (test code = 381) POTASSIUM (BEAKER) 3.4 meq/L 3.5-5.1 L Specimen slightly (test code = 379) hemolyzed CHLORIDE (BEAKER) 107 meq/L 98-107 (test code = 382) CO2 (BEAKER) (test 22 meq/L 22-29 code = 355) BLOOD UREA NITROGEN 53 mg/dL 7-21 H (BEAKER) (test code = 354) CREATININE (BEAKER) 1.31 mg/dL 0.57-1.25 H Specimen slightly (test code = 358) hemolyzed GLUCOSE RANDOM 99 mg/dL 70-105 (BEAKER) (test code = 652) CALCIUM (BEAKER) 8.4 mg/dL 8.4-10.2 (test code = 697) EGFR (BEAKER) (test 39 mL/min/1.73 ESTIMA KELLY GFR IS code = 1092) sq m NOT ACCURATE CREATININE CLEARANCE IN PREDICTING GLOMERULAR FILTRATION RATE . ESTIMATED GFR I S NOT APPLICABLE FOR DIALYSIS PATIEN TS. CBC W/PLT COUNT & AUTO [id number] 17:24:00 Test Item Value Reference Range Interpretation Comments WHITE BLOOD CELL COUNT (BEAKER) 7.9 K/ L 3.5-10.5 (test code = 775) RED BLOOD CELL COUNT (BEAKER) 2.33 M/ L 3.93-5.22 L (test code = 761) HEMOGLOBIN (BEAKER) (test code = 7.0 GM/DL 11.2-15.7 L 410) HEMATOCRIT (BEAKER) (test code = 20.6 % 34.1-44.9 L 411) MEAN CORPUSCULAR VOLUME (BEAKER) 88.4 fL 79.4-94.8 (test code = 753) MEAN CORPUSCULAR HEMOGLOBIN 30.0 pg 25.6-32.2 (BEAKER) (test code = 751) MEAN CORPUSCULAR HEMOGLOBIN CONC 34.0 GM/DL 32.2-35.5 (BEAKER) (test code = 752) RED CELL DISTRIBUTION WIDTH 12.2 % 11.7-14.4 (BEAKER) (test code = 412) PLATELET COUNT (BEAKER) (test 264 K/CU MM 150-450 code = 756) MEAN PLATELET VOLUME (BEAKER) 10.7 fL 9.4-12.3 (test code = 754) NUCLEATED RED BLOOD CELLS 0 /100 WBC 0-0 (BEAKER) (test code = 413) NEUTROPHILS RELATIVE PERCENT 71 % (BEAKER) (test code = 429) LYMPHOCYTES RELATIVE PERCENT 21 % (BEAKER) (test code = 430) MONOCYTES RELATIVE PERCENT 7 % (BEAKER) (test code = 431) EOSINOPHILS RELATIVE PERCENT 0 % (BEAKER) (test code = 432) BASOPHILS RELATIVE PERCENT 0 % (BEAKER) (test code = 437) NEUTROPHILS ABSOLUTE COUNT 5.60 K/ L 1.56-6.13 (BEAKER) (test code = 670) LYMPHOCYTES ABSOLUTE COUNT 1.63 K/ L 1.18-3.74 (BEAKER) (test code = 414) MONOCYTES ABSOLUTE COUNT (BEAKER) 0.56 K/ L 0.24-0.36 H (test code = 415) EOSINOPHILS ABSOLUTE COUNT 0.02 K/ L 0.04-0.36 L (BEAKER) (test code = 416) BASOPHILS ABSOLUTE COUNT (BEAKER) 0.02 K/ L 0.01-0.08 (test code = 417) IMMATURE GRANULOCYTES-RELATIVE 0 % 0-1 PERCENT (BEAKER) (test code = 2801) [[facility]] URINALYSIS, [id number] 12:48:01 Test Item Value Reference Range Interpretation Comments Urinalysis w/ Microscopic Cancel Reason: No (test code = 26841-3) Sample [facility]] CBC (INCLUDES DIFF/PLT)2019-05-14 08:30:01 Test Item Value Reference Range Interpretation Comments WBC (test code = 6690-2) 5.3 {K/CMM} 3.7-10.4 RBC; Below Low Threshold (test 3.31 {M/CMM} 4.20-5.40 code = 789-8) Hgb; Below Low Threshold (test 10.4 g/dl 12.0-16.0 code = 718-7) Hct; Below Low Threshold (test 29.4 % 36.0-48.0 code = 42153-8) MCV (test code = 787-2) 88.9 fL 80.0-98.0 MCH; Above High Threshold (test 31.3 pg 27.0-31.0 code = 785-6) MCHC (test code = 786-4) 35.2 g/dl 32.0-36.0 RDW (test code = 788-0) 12.4 % 11.5-14.5 Platelet (test code = 98716-1) 280 {K/CMM} 133-450 Mean Platelet Volume (test code 8.7 fL 7.4-10.4 = 24734-2) [facility]] [id number] 08:30:01 Test Item Value Reference Range Interpretation Comments Segmented Neutrophils (test code 64.1 % 45.0-75.0 = 63018-9) Monocytes (test code = 52780-5) 9.7 % 2.0-12.0 Lymphocytes (test code = 03549-4) 21.1 % 20.0-40.0 Eosinophils; Above High Threshold 4.3 % 0.0-4.0 (test code = 66327-6) Basophils (test code = 706-2) 0.8 % 0.0-1.0 Segs-Bands # (test code = 3.4 {K/CMM} 1.5-8.1 43203-4) Lymphocytes # (test code = 1.1 {K/CMM} 1.0-5.5 85707-4) Monocytes # (test code = 47809-5) 0.5 {K/CMM} 0.0-0.8 Eosinophils # (test code = 0.2 {K/CMM} 0.0-0.5 55047-0) [facility]] HEMOGLOBIN [id number] 08:30:01 Test Item Value Reference Range Interpretation Comments Hemoglobin A1c (test code = 4548-4) 4.9 % <=5.6 [facility]] T3, [id number] 08:30:01 Test Item Value Reference Range Interpretation Comments T3 Total (test code = 3053-6) 0.80 ng/ml 0.60-1.81 [facility]] CMP [id number] 08:30:01 Test Item Value Reference Range Interpretation Comments Sodium Level; 132 {mEq/l} 135-145 Below Low Threshold (test code = 2951-2) Potassium Level 4.2 {mEq/l} 3.5-5.1 (test code = 2823-3) Chloride Level 96 {mEq/l} 95-109 (test code = 2075-0) Carbon Dioxide; 23 {mEq/l} 24-32 Below Low Threshold (test code = 8-9) AGAP (test code = 17.2 {mEq/l} 10.0-20.0 04457-4) Glucose Lvl (test 92 mg/dl 70-99 Adult refe rence range code = 2345-7) values reflec t the clinical guidel inesof the [place] Diabet es Association. Creatinine Lvl 1.20 mg/dl 0.50-1.40 (test code = 2160-0) Blood Urea 22 mg/dl 7-22 Nitrogen (test code = 3094-0) BUN/Creatinine 18 6-25 Ratio (test code = 3097-3) Total Protein 7.3 g/dl 6.4-8.4 (test code = 2885-2) Albumin Lvl (test 4.4 g/dl 3.5-5.0 code = 1751-7) Globulin (test 2.9 g/dl 2.7-4.2 code = 86131-9) A/G Ratio (test 1.5 0.7-1.6 code = 1759-0) Calcium Level 9.9 mg/dl 8.5-10.5 Total (test code = 15279-1) ALT (test code = 22 u/l 0-65 1743-4) AST (test code = 22 u/l 0-37 81172-7) Bili Total (test 0.3 mg/dl 0.2-1.3 code = 1975-2) Alk Phos (test 42 u/l 39-136 The pediatric reference code = 1783-0) ranges for th is test represent a CLSI-basedtrans ference of the CALIPER romeo abase of pediatric refer ence intervals to e[employer]iemens Ruby analyzer (Clinical Biochemistry 46 (2013): 8548-3645). [facility] has not internally validated these reference ranges and therefore they should be used only in e context of a thoroughcl inical assessment. eGFR (test code = 44 The eGFR i s calculated 54221-5) {ML/MIN/1.7} using the CKD-E PI formula. In mos t young, healthyindividu als the eGFR will be >9 0 mL/min/1.73m2. The eGFR declines with a ge. AneGFR of 60-89 may be normal in some population s, particularly th e elderly, forwhom the CKD -EPI formula has not been extensively tyler idated. Use of the eGFR isnot recommended in the following populations:Ind ividuals with unstable c reatinine concentrations, including patient s and those with seri ous co-morbid conditions.Gavi ents with extremes in mus stanley mass or diet.The romeo a above are obtained fr om the National Kidney Disease Education Progr am(NKDEP) which yue kolb recommends that when the eGFR is used in patientswith ex tremes of body mass index for purposes of brenda g dosing, the eGFR should be multiplied by t he estimated BMI. [facility]] LIPID [id number] 08:30:01 Test Item Value Reference Range Interpretation Comments Chol (test code = 2093-3) 175 mg/dl <=199 Trig (test code = 2571-8) 98 mg/dl <=149 HDL Cholesterol; Below Low 59 mg/dl >=61 Threshold (test code = 2085-9) CHD Risk; Below Low Threshold (test 2.97 3.90-5.80 code = 23890-2) LDL (test code = 68350-6) 96 mg/dl <=99 VLDL (test code = VLDL) 20 [facility]] T4, [id number] 08:30:01 Test Item Value Reference Range Interpretation Comments T4 Free (test code = 3024-7) 1.42 ng/dl 0.76-1.46 [facility]] TSH, 3RD [id number] 08:30:01 Test Item Value Reference Range Interpretation Comments TSH; Below Low Threshold (test 0.083 {uIU/ml} 0.360-3.740 code = 13897-0) [facility]] CMP [id number] 09:27:01 Test Item Value Reference Range Interpretation Comments Sodium Level; 133 {mEq/l} 135-145 Below Low Threshold (test code = 2951-2) Potassium Level 4.5 {mEq/l} 3.5-5.1 (test code = 2823-3) Chloride Level 97 {mEq/l} 95-109 (test code = 5-0) Carbon Dioxide 26 {mEq/l} 24-32 (test code = 2027-9) AGAP (test code = 14.5 {mEq/l} 10.0-20.0 65352-5) Glucose Lvl (test 91 mg/dl 70-99 Adult refe rence range code = 2345-7) values reflec t the clinical guidel inesof the [place] Diabet es Association. Creatinine Lvl 1.10 mg/dl 0.50-1.40 (test code = 2160-0) Blood Urea 21 mg/dl 7-22 Nitrogen (test code = 3094-0) BUN/Creatinine 19 6-25 Ratio (test code = 3097-3) Total Protein 7.6 g/dl 6.4-8.4 (test code = 2885-2) Albumin Lvl (test 4.4 g/dl 3.5-5.0 code = 1751-7) Globulin (test 3.2 g/dl 2.7-4.2 code = 33252-8) A/G Ratio (test 1.4 0.7-1.6 code = 1759-0) Calcium Level 9.6 mg/dl 8.5-10.5 Total (test code = 21916-8) ALT (test code = 22 u/l 0-65 1743-4) AST (test code = 21 u/l 0-37 56649-5) Bili Total (test 0.4 mg/dl 0.2-1.3 code = 1974-2) Alk Phos (test 47 u/l 39-136 code = 1783-0) eGFR (test code = 49 The eGFR i s calculated 95973-0) {ML/MIN/1.7} using the CKD-E PI formula. In mos t young, healthyindividu als the eGFR will be >9 0 mL/min/1.73m2. The eGFR declines with a ge. AneGFR of 60-89 may be normal in some population s, particularly th e elderly, forwhom the CKD -EPI formula has not been extensively tyler idated. Use of the eGFR isnot recommended in the following populations:Ind ividuals with unstable c reatinine concentrations, including patient s and those with seri ous co-morbid conditions.Gavi ents with extremes in mus stanley mass or diet.The romeo a above are obtained fr om the National Kidney Disease Education Progr am(NKDEP) which yue kolb recommends that when the eGFR is used in patientswith ex tremes of body mass index for purposes of brenda g dosing, the eGFR should be multiplied by t he estimated BMI. [facility]] T4, [id number] 09:27:01 Test Item Value Reference Range Interpretation Comments T4 Free (test code = 3024-7) 1.44 ng/dl 0.76-1.46 [facility]] TSH, 3RD [id number] 09:27:01 Test Item Value Reference Range Interpretation Comments TSH; Below Low Threshold (test 0.155 {uIU/ml} 0.360-3.740 code = 80946-9) [facility]] T3, [id number] 09:27:01 Test Item Value Reference Range Interpretation Comments T3 Total; Below Low Threshold 0.55 ng/ml 0.60-1.81 (test code = 3053-6) [facility]] T3, [id number] 10:51:01 Test Item Value Reference Range Interpretation Comments T3 Total (test code = 3053-6) 0.69 ng/ml 0.60-1.81 [facility]] CMP [id number] 10:51:01 Test Item Value Reference Range Interpretation Comments Sodium Level 135 {mEq/l} 135-145 (test code = 2951-2) Potassium Level 4.5 {mEq/l} 3.5-5.1 (test code = 2823-3) Chloride Level 97 {mEq/l} 95-109 (test code = 5-0) Carbon Dioxide 28 {mEq/l} 24-32 (test code = 2027-9) AGAP (test code = 14.5 {mEq/l} 10.0-20.0 26238-4) Glucose Lvl (test 90 mg/dl 70-99 Adult refe rence range code = 2345-7) values reflec t the clinical guidel inesof the [place] Diabet es Association. Creatinine Lvl 1.20 mg/dl 0.50-1.40 (test code = 2160-0) Blood Urea 23 mg/dl 7-22 Nitrogen; Above High Threshold (test code = 3094-0) BUN/Creatinine 19 6-25 Ratio (test code = 3097-3) Total Protein 8.0 g/dl 6.4-8.4 (test code = 2885-2) Albumin Lvl (test 4.4 g/dl 3.5-5.0 code = 1751-7) Globulin (test 3.6 g/dl 2.7-4.2 code = 91469-3) A/G Ratio (test 1.2 0.7-1.6 code = 1759-0) Calcium Level 9.5 mg/dl 8.5-10.5 Total (test code = 50695-7) ALT (test code = 28 u/l 0-65 1743-4) AST (test code = 26 u/l 0-37 47293-0) Bili Total (test 0.3 mg/dl 0.2-1.3 code = 1974-2) Alk Phos (test 47 u/l 39-136 code = 1783-0) eGFR (test code = 44 The eGFR i s calculated 08943-7) {ML/MIN/1.7} using the CKD-E PI formula. In mos t young, healthyindividu als the eGFR will be >9 0 mL/min/1.73m2. The eGFR declines with a ge. AneGFR of 60-89 may be normal in some population s, particularly th e elderly, forwhom the CKD -EPI formula has not been extensively tyler idated. Use of the eGFR isnot recommended in the following populations:Ind ividuals with unstable c reatinine concentrations, including patient s and those with seri ous co-morbid conditions.Gavi ents with extremes in mus stanley mass or diet.The romeo a above are obtained fr om the National Kidney Disease Education Progr am(NKDEP) which yue lly recommends that when the eGFR is used in patientswith ex tremes of body mass index for purposes of brenda g dosing, the eGFR should be multiplied by t he estimated BMI. [facility]] LIPID [id number] 10:51:01 Test Item Value Reference Range Interpretation Comments Chol (test code = 2093-3) 142 mg/dl <=199 Trig (test code = 2571-8) 69 mg/dl <=149 HDL Cholesterol (test code = 61 mg/dl >=61 2085-9) CHD Risk; Below Low Threshold (test 2.33 3.90-5.80 code = 62810-3) LDL (test code = 72720-9) 67 mg/dl <=99 VLDL (test code = VLDL) 14 [facility]] T4, [id number] 10:51:01 Test Item Value Reference Range Interpretation Comments T4 Free (test code = 3024-7) 1.22 ng/dl 0.76-1.46 [facility]] TSH, 3RD [id number] 10:51:01 Test Item Value Reference Range Interpretation Comments TSH; Below Low Threshold (test 0.180 {uIU/ml} 0.360-3.740 code = 08528-5) [facility]] CBC (INCLUDES DIFF/PLT)2018-05-15 10:51:01 Test Item Value Reference Range Interpretation Comments WBC (test code = 6690-2) 7.3 {K/CMM} 3.7-10.4 RBC; Below Low Threshold (test 3.40 {M/CMM} 4.20-5.40 code = 789-8) Hgb; Below Low Threshold (test 10.4 g/dl 12.0-16.0 code = 718-7) Hct; Below Low Threshold (test 29.7 % 36.0-48.0 code = 93171-7) MCV (test code = 787-2) 87.4 fL 80.0-98.0 MCH (test code = 785-6) 30.6 pg 27.0-31.0 MCHC (test code = 786-4) 35.1 g/dl 32.0-36.0 RDW (test code = 788-0) 12.5 % 11.5-14.5 Platelet (test code = 39769-3) 343 {K/CMM} 133-450 Mean Platelet Volume (test code 9.1 fL 7.4-10.4 = 57762-8) [facility]] [id number] 10:51:01 Test Item Value Reference Range Interpretation Comments Segmented Neutrophils (test code 67.3 % 45.0-75.0 = 64335-1) Monocytes (test code = 55570-1) 7.9 % 2.0-12.0 Lymphocytes (test code = 01838-4) 21.0 % 20.0-40.0 Eosinophils (test code = 73546-2) 3.2 % 0.0-4.0 Basophils (test code = 706-2) 0.6 % 0.0-1.0 Segs-Bands # (test code = 4.9 {K/CMM} 1.5-8.1 87492-2) Lymphocytes # (test code = 1.5 {K/CMM} 1.0-5.5 81396-0) Monocytes # (test code = 17073-8) 0.6 {K/CMM} 0.0-0.8 Eosinophils # (test code = 0.2 {K/CMM} 0.0-0.5 70698-3) [facility]
--- NOTE | 2020-11-22 23:48 | ER ---
Nurse's Notes [facility] – [place], [place] Name: Aurea Londono Age: 80 yrs Sex: Female : 1940 Arrival Date: 11/22/2020 Time: 21:21 Bed Waiting Private MD: Diagnosis: Presentation: 11/22 21:40 Chief complaint: Patient states: she has been keeping a log of her BP and tonight it bb was elevated systolic in the 190s and she is having a really bad headache. Coronavirus screen: At this time, the client does not indicate any symptoms associated with coronavirus-19. Ebola Screen: No symptoms or risks identified at this time. Initial Sepsis Screen: Does the patient meet any 2 criteria? No. Patient's initial sepsis screen is negative. Does the patient have a suspected source of infection? No. Patient's initial sepsis screen is negative. Risk Assessment: Do you want to hurt yourself or someone else?. Onset of symptoms was November 22, 2020. 21:40 Method Of Arrival: Ambulatory bb 21:40 Acuity: SANGITA 3 bb Triage Assessment: 21:45 Headache History: The patient has had previous headaches and this one is similar to bb previous episodes. General: Appears in no apparent distress. Behavior is calm, cooperative. Pain: Complains of pain in headache Pain currently is 10 out of 10 on a pain scale. Pain began gradually, Also complains of inability to concentrate. Neuro: Level of Consciousness is awake, alert, obeys commands, Oriented to person, place, time, situation. Cardiovascular: Heart tones present Capillary refill < 3 seconds Patient's skin is warm and dry. Respiratory: Respiratory effort is even, unlabored, Respiratory pattern is regular. Derm: Skin is pink, warm \\T\\ dry. Musculoskeletal: Circulation, motion, and sensation intact. Historical: - Allergies: 21:45 No Known Allergies; bb - Home Meds: 21:45 Feosol Oral [Active]; fluoxetine 20 mg Oral cap 1 cap once daily [Active]; trazodone 50 bb mg Oral tab [Active]; aspirin 81 mg Oral chew 1 tab once daily [Active]; Synthroid Oral [Active]; Lisinopril Oral [Active]; amlodipine oral [Active]; trilopix [Active]; rosuvastatin oral oral [Active]; - PMHx: 21:45 "Left arm blockage"; Anemia; arterial sclerosis; Depression; Hyperlipidemia; bb Hypertension; - PSHx: 21:45 cardiac stents; Carotid endarterectomy; Aortic stent; bb - Immunization history:: Adult Immunizations up to date. - Social history:: Smoking status: Patient denies any tobacco usage or history of. Vital Signs: 21:40 BP 182 / 77; Pulse 78; Resp 16 S; Temp 97.6(O); Pulse Ox 98% on R/A; Weight 71.67 kg bb (R); Height 5 ft. 8 in. (172.72 cm) (R); Pain 10/10; 21:40 Body Mass Index 24.02 (71.67 kg, 172.72 cm) bb ED Course: 21:21 Patient arrived in ED. bp1 21:41 Triage completed. bb 21:45 Arm band placed on Patient placed in waiting room, Patient notified of wait time. bb 23:47 Patient's name was called from ER lobby. No response. Unable to locate patient. Will bb disposition as left without being seen by a provider. Administered Medications: No medications were administered Outcome: 23:47 Patient left the ED. bb Signatures: Maddi Patton RN RN bb Brie Overton bp1
[2020-11-23 00:24] VITALS: BP 182/77; TEMP 97.6; O2SAT 98
== END 2020-11-22 23:47 | disposition left against medical advice (07) ==
LOC: ER 21:18
DX: Z02.9 Encounter for administrative examinations, unspecified (principal)
CPT/HCPCS: 99281

== ENCOUNTER 2022-12-16 03:05 | Emergency (ER) | payer OTHER ==
--- OUTSIDE RECORDS SUMMARY | 2022-12-16 03:09 | XMS REPORT | Continuity of Care Document ---
:1940 Author Organization [facility] t Address [address] [facility]. [address] [place] [address] Care Team Providers Name Role Phone Kenneth Conde MD Primary Care Physician Dayami Hendricks MD Attending Clinician [phone] Kenneth Conde MD Attending Clinician Trent PAIGE, Tiffanie Tobar Attending Clinician [phone] Asked, No Pcp Attending Clinician Unavailable GUILLERMO RENEE Attending Clinician Unavailable ALBERT DUBOIS Attending Clinician Unavailable RALEIGH WOODY Attending Clinician Unavailable KETTY NOLASCO Attending Clinician Unavailable MD RALEIGH WOODY Attending Clinician Unavailable LEÓN COYNE Attending Clinician Unavailable RICK HOYOS M.D. Attending Clinician Unavailable KETTY TORIBIO M.D. Attending Clinician Unavailable LENIN BURNHAM Attending Clinician Unavailable RALEIGH WOODY Admitting Clinician Unavailable MD RALEIGH WOODY Admitting Clinician Unavailable LEÓN COYNE Admitting Clinician Unavailable AGUILA JOHNSTON Admitting Clinician Unavailable MOMO POPE Admitting Clinician Unavailable Payers Payer Name Policy Type Policy Number Effective Date Expiration Date S ource Problems Condition Condition Condition Status Onset Resolution Last Treating Co mments Source Name Details Category Date Date Treatment Clinician Date History of History of Disease Active M ethodi GI bleed GI bleed 04-26 00:00: Hospita 00 l Hemorrhoid Hemorrhoid Disease Active Overview : Methodi 04-[address] 00:00: g of this Hospita 00 note l might be different from the original. Patient has a hemorrhoi d that is causing her some issues. She has been treating over the counter. Had a surgery before. Acquired Acquired Disease Active Overview: Me haddad hypothyroi hypothyroi 04-[address] dism dism 00:00: g of this Hospita 00 note l might be different from the original. Patient states that she has been feeling sluggish, tired--if she sits down in a chair she sleeps.Sh e has been taking on an empty stomach.S he says that she would like the dose increased , but doesn't remember when it was decreased .Patient is having some hair sheddingN otes that her nails are somewhat rigidWeig ht is stable--- --------- --------- --------- --------- --------- --------- 12/15/21D ue to reassess labsWeigh t stable, blood pressure stablePat ient was feeling some fatigue, but finds that when she gets up to do things, she's okay. Last Assessmen t & Plan: Formattin g of this note might be different from the original. Will assess today. Hyponatrem Hyponatrem Disease Active Overview : Blanca ia ia 11-[address] 00:00: g of this Hospita 00 note l might be different from the original. Asymptoma ticPatien t was seen by nephrolog y who felt no further evaluatio n was necessary unless something changed. Last Assessmen t & Plan: Formattin g of this note might be different from the original. Continue to monitor. Stage 3a Stage 3a Disease Active Overview: Me haddad chronic chronic 11-[address] kidney kidney 00:00: g of this Hospita disease disease 00 note l might be different from the original. Saw Nephrolog y. Will follow up with them in 1 year. COPD COPD Disease Active Overview: Method i (chronic (chronic 10-[address] obstructiv obstructiv 00:00: g of this Hospita e e 00 note l pulmonary pulmonary might be disease) disease) different [...] in that location. Moderate diffuse mosaic attenuati on.------ --------- --------- --------- --------- --------- --------- --------- --------- --------- --------- --------- --------- ----04/26Will follow up with pulmonary in MarchHasn 't needed her inhaler in months--s ays that when her heart got straight, that got much better.La st Assessmen t & Plan: Formattin g of this note might be different from the original. Continue prn use Healthcare Healthcare Disease Active Overview : Methodi maintenanc maintenanc 10-[address] e e 00:00: g of this Hospita 00 note l might be different from the original. [facility]: Colonosco py: patient does not want to get colonosco py, however she agrees to cologaurd Eye exam: 3 years ago Mammogram (increase d risk of breast cancer: Personal history of breast, ovarian, tubal, or peritonea l cancer, Family history of breast, ovarian, tubal, or peritonea l cancer, Ancestry (eg, Ashkenazi Amish) associate d with BRCA1 or 2 mutations , Known carrier of a pathogeni c mutation for a hereditar y breast and ovarian cancer syndrome in self or relative, Previous breast biopsy indicatin g high-risk lesion (eg, atypical hyperplas ia), Radiother apy to the chest between age 11 and age 31): 2008. She declines any further breast cancer screening . Pap/pelvi c exam(21-2 9 q 3 yrs without HPV co-testin g for general screening ; 30-65 q 5 yrs if negative HPV co- testing; otherwise every 3 yrs)): s/p totally hysterect jadon DEXA (starting at age 65, unless they have RF steroids, alcohol, RA): 2008, reports it was normal Lung cancer screening (low-dose computed tomograph y (LDCT) in adults aged 50 to 80 years who have a 20 pack-year smoking history and currently smoke or have quit within the past 15 years): Quit in 1997 - not indicated Td (q10 yrs, one-time TDaP booster): 1 year ago PCV13 (>65 or CSF, cochlears , SCD, asplenia, immunosup pressed, CKD): PPSV23 (>65 or heart dz, lung dz, DM, EtOH, tobacco, after PCV 13): She states will get this at the pharmacy Influenza (yearly): up to date Shingrix (50+): Previousl y had shingles, agreeable to getting vaccine at the pharmacy HBV (HCV, diabetics ): Hep C Screening (Age 18-79): will do 5/4 HIV: declinesD ental: dueSkin: needs derm referralD epression Screening : done 5/4- mild depressio nAdvanced care Planning: she has completed advanced directive sSexual History:D oes patient want STD screening ?: she decinles Insomnia Insomnia Disease Active 2019-07 Overview: Me thodi 0-[address] 00:00: g of this Hospita 00 note l might be different from the original. States [...] she can't sleep. She has tried a [place] sleep aid which worked for a week.____ [...] in bed, does not read in bed he states the 25 mg dose did not help so she increased to 50 mg which has helped a little bit. She would like to increase to 75 mg. --------- --------- --------- --------- --------- --------- ------Pati ent is on trazodone for insomnia. Working well at current dose. No major side effects. No signs of serotonin syndromeL ast Assessmen t & Plan: Formattin g of this note might be different from the original. Continue current medicatio n S/P S/P Disease Active Methodi carotid carotid 04-02 st endarterec endarterec 00:00: Pete haynes 00 l Hyperglyce Hyperglyce Disease Active M ethodi christie christie 03-24 st 00:00: Hospita 00 l Internal Internal Disease Active Overview: Me thodi carotid carotid 03-[address] artery artery 00:00: g of this Hospita stenosis, stenosis, 00 note l left left might be different from the [...] on plavix because of history of bleeding. Mixed Mixed Disease Active Overview: Method i hyperlipid hyperlipid 03-[address] emia emia 00:00: g of this Hospita 00 note l might be different from the original. Last had lipids check a year ago.Takes crestor 10 mg and trilipix. Denies any muscle soreness. --------- --------- --------- --------- --------- --------- --------- -- 2On rosuvasta tin and trilipix, no myalgiasK nown CADLast Assessmen t & Plan: Formattin g of this note might be different from the original. Continue current medicatio ns Coronary Coronary Disease Active Overview: Me thodi artery artery 03-[address] disease disease 00:00: g of this Hospi ta involving involving 00 note l [place] might be coronary coronary different artery of artery of from the [place] original. heart with heart with Sees angina angina Meche. pectoris pectoris Had a synergy stent placed in February of 2019 after she was found to have restenosi s of stent in RCA.[facility] (02/2019): Severe 95 to 98% in-stent restenosi [...] nitrogylc sourav. She has not seen Dr. beck since 05/2019 and does not have a follow up appointme nt with him for another couple of months. he was seen by Dr. Woody in early February and admitted for [facility]. She was found to have in stent [...] need PTCA and radiation therapy per her [facility] report. Pat ient saw Dr. Woody in [...] yet. No medicatio n changes were made. --------- --------- --------- --------- --------- --------- --------- ------ No current cardiolog y recordsBl ood pressure is at goalJust had a visit with him--mike red her for another yearLast Assessmen t & Plan: Formattin g of this note might be different from the original. Continue per cardiolog y recommend ationsHea rt rate in the 60s with good blood pressure control. Iron Iron Disease Active Overview: Method i deficiency deficiency 03-[address] anemia anemia 00:00: g of this Hospita 00 note l might be different from the original. States she had many studies down for this but nothing was found. Last colonosco py was five years ago. Polyps were present. On Ferrous sulfate 325 mg BIDLast Assessmen t & Plan: Formattin g of this note might be different from the original. -Recheck anemia studies H/O: H/O: Disease Active Overview: Method i hysterecto hysterecto 03-[address] my my 00:00: g of this Hospita 00 note l might be different from the original. Was previousl y on premarin but is not how fluoxetin e. Thyroid Thyroid Disease Active Overview: Meth monty cancer cancer 03-[address] 00:00: g of this Hospita 00 note l might be different from the original. Has radioacti ve iodine at [facility]. She has been on thyroid medicine since [...] TSH, FT4 Essential Essential Disease Active Overview: Methodi hypertensi hypertensi 8-[address] on on 00:00: g of this Hospita 00 note l might be different from the original. Hypertens [...] is still on lisinopri l-HCTZ 10-12.5 mg daily.___ She went to the emergency departmen t a couple of weeks ago with a headache and blood pressure SBP of 190-200. She was told it was be six hours before a provider could see her so she went home. She saw one of the other residents 11/10 and was started on amlodipin e 5 mg daily. She is having a little bit of ankle swelling with this but it does not bother her. She reports having lighthead edness when her blood pressure was really but otherwise she is not having any lighthead edness, dizziness , CP, SOB, blurry vision. --------- --------- --------- --------- --------- --------- --------- --------- --------- --------- --------- --------- --------- -04/26/21 Patient's blood pressure is uncontrol ledLast visit, amlodipin e was increased to twice daily, but she is now just taking the once daily. She had a great deal of swelling. --------- --------- --------- --------- --------- --------- --------- --------- -12/15/21 Well controlle d on current medicatio nsLast Assessmen t & Plan: Formattin g of this note might be different from the original. 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 Had lobectomy in [address] Cordero once a year. Saw Dr. Cordero last week. She started an inhaler last year. She was told to come back in 1 year to see him again. --------- --------- --------- --------- --------- --------- --------- --------- --------- ------Due to see in September 2021----- --------- --------- --------- --------- --------- --------- --------- --------- 12/15/21L ast Assessmen t & Plan: Formattin g of this note might be different from the original. -Asked for her to get records from Dr. Cordero office GI bleed GI bleed Disease [facility] 2018[facility] History of History of Problem Resolve [facility] depression d [facility] History of History of Problem Resolve [facility] lung lung d [facility] disease disease ans History of History of Problem Resolve [facility] hemorrhoid hemorrhoid d [facility] s ans History of History of Problem Resolve [facility] hypertensi hypertensi d Ph [facility] on on ans History of History of Problem Resolve [facility] thyroid thyroid d [facility] disorder disorder ans Postoperat Postoperat Problem Active [facility] [place] [facility] hypothyroi hypothyroi an s dism dism Dyslipidem Dyslipidem Problem Active U T [place] [facility] ans Anemia Anemia Problem Active [facility] ans Encounter Encounter Problem Active [facility] for for [facility] screening screening ans for lung for lung cancer cancer Essential Essential Problem Active [facility] hypertensi hypertensi Ph [facility]ici on on ans Hypothyroi Hypothyroi Problem Active U T dism dism Physici ans Medication Medication Problem Active U T management management Ph [facility] ans Allergies, Adverse Reactions, Alerts This patient has no known allergies or adverse reactions. Family History Family Member Diagnosis Comments Start Date Stop Date Source Unknown Family history of Family History [facility] Heart trouble Unknown Family history of Family History [facility] Family Member hypertension Unknown Family history of Family History [facility] Family Member malignant neoplasm Unknown Family history of Family History [facility] Family Member cerebrovascular accident (CVA) Natural Pancreatic cancer [facility] Natural Heart attack [facility] Natural Suicidality [facility] sister [facility] Social History Social Habit Start Date Stop Date Quantity Comments Source Sexual orientation 2020-10-26 Heterosexual Meth odist 20:45:48 (finding) Hospital History SDOH [facility] Alcohol Std Drinks [facility] History SDOH [facility] Alcohol Binge Medical Em[address] [facility] Gender identity [facility] History of Social 2022-11-24 2022-11-[address] function 00:00:00 00:00:00 Hospital Alcohol intake 2022-08-30 2022-08-30 Lifetime [facility] 00:00:[facility] 00:00:00 non-drinker Hospital (finding) Cigarettes smoked 2022-04-13 2022-04-[address] current (pack per 00:00:00 00:00:00 Hospita l day) - Reported Cigarette 2022-04-13 2022-04-13 [facility] pack-years 00:00:00 00:00:00 Hospital Tobacco use and 2022-04-13 2022-04-13 Smokeless tobacco Me thodist exposure 00:00:00 00:00:00 non-user Hospital Tobacco Comment 2022-04-13 2022-04-13 Smoked about 30 Meth odist 00:00:00 00:00:00 years. Decided it Hospita l was stupid so I quit History SDOH 2019-06-29 2019-06-[address] [facility] Alcohol Frequency 00:00:00 00:00:00 [facility] Center History of tobacco 1960-03-31 1995-07-31 Current smoker Me [facility]odist use 00:00:00 00:00:00 Hospital Sex Assigned At [birth year] [facility] 00:00:00 00:[facility]:00 Hospital Smoking Status Start Date Stop Date Source Ex-smoker 2022-04-13 00:00:00 2022-04-13 00:00:00 [facility] Medications Ordered Filled Start Stop Current Ordering Indication Dosage Frequency Signature Comments Components Source Medication Medication Date Date Medication? Clinician (SIG) Name Name traZODone Yes 50mg QD Take 1 Method i (DESYREL) 5-10 tablet (50 st 50 MG 00:00: mg total) Hospita tablet 00 by mouth l nightly as needed for sleep. ferrous Yes 325mg Q.5D Take 1 Methodi sulfate 325 4-[address] (65 FE) MG 09:22: (325 mg Hosp radhames tablet 55 total) by l mouth 2 (two) times a day. acetaminoph Yes 500mg Take 1 Met hodi en 4-[address] (TYLENOL) 09:22: (500 mg Hospi ta 500 MG 55 total) by l tablet mouth as needed for mild pain. aspirin Yes 81mg QD Take 1 [facility] (ECOTRIN) - tablet (81 st 81 MG 09:22: mg total) Hospita enteric 55 by mouth l coated daily. tablet gabapentin Yes [id number] 100mg QD Take 1 [facility]i (Neurontin) 11-[address] 100 mg 00:00: (100 mg Hospita capsule 00 total) by l mouth nightly. Synthroid 2022- Yes [id number] 112ug QD Take 1 [facility]i 112 mcg -27 03- tablet st tablet 00:00: 04:59 (112 mcg Hospit a 00 :00 total) by l mouth daily for 180 days. lisinopriL 2022- Yes [id number] 40mg QD Take 2 [facility] (PRINIVIL) 2-27 03- tablets st 20 mg 00:00: 04:59 (40 mg Hospita tablet 00 :00 total) by l mouth daily for 180 days. amLODIPine 2023- No [id number] 5mg QD Take 1 Methodi (NORVASC) 5 08-30 tablet (5 st mg tablet 00:00: 05:59 mg total) Ho spita 00 :00 by mouth l daily. rosuvastati 2023- No [id number] 10mg QD Take 1 Methodi n (CRESTOR) 08-30 tablet (10 s t 10 mg 00:00: 05:59 mg total) Hospit a tablet 00 :00 by mouth l daily for 360 days. choline 2023- No [id number] 135mg QD Take 1 M ethodi fenofibrate 08-[address] (TRILIPIX) 00:00: 05:59 (135 mg Hos kwabena 135 mg 00 :00 total) by l capsule mouth daily for 360 days. FLUoxetine 2022- No 20mg QD Take 1 Meth monty (PROzac) 20 08-[address] MG capsule 00:00: 04:59 (20 mg Hosp radhames 00 :00 total) by l mouth nightly for 90 days. Synthroid 2022- No [id number] 125ug QD Take 1 Methodi 125 mcg 08-[address] tablet 00:00: 00:00 (125 mcg Hospit a 00 :00 total) by l mouth daily for 90 days. lisinopriL 2022- No [id number] 30mg QD Take 1.5 Methodi (PRINIVIL) 08-[address] 20 mg 00:00: 00:00 (30 mg Hospita tablet 00 :00 total) by l mouth daily for 360 days. amLODIPine 2022- No [id number] 5mg QD Take 1 [facility]i (NORVASC) 5 08-30 tablet (5 st mg tablet 00:00: 00:00 mg total) Ho spita 00 :00 by mouth l daily. lisinopriL 2022- No [id number] 20mg QD Take 1 Methodi (PRINIVIL) 08-30 tablet (20 st 20 mg 00:00: 00:00 mg total) Hospit a tablet 00 :00 by mouth l daily for 360 days. levothyroxi 2021-07- No [id number] 125ug QD Take 1 Methodi ne 09-[address] (SYNTHROID) 00:00: 00:00 (125 mcg H ospita 125 mcg 00 :00 total) by l tablet mouth daily for 90 days. levothyroxi 2021- No [id number] 125ug QD Take 1 Methodi ne 04-[address] (SYNTHROID) 00:00: 00:00 (125 mcg H ospita 125 mcg 00 :00 total) by l tablet mouth daily for 90 days. choline 2022- No [id number] 135mg QD Take 1 M ethodi fenofibrate 04-[address] (TRILIPIX) 00:00: 00:00 (135 mg Hos kwabena 135 mg 00 :00 total) by l capsule mouth daily. gabapentin 2021- No [id number] 300mg QD Take 1 Methodi (NEURONTIN) 04-[address] 300 mg 00:00: 00:00 (300 mg Hospita capsule 00 :00 total) by l mouth nightly. levothyroxi 2021- No [id number] 125ug QD Take 1 Methodi ne 01-[address] (SYNTHROID) 00:00: 00:00 (125 mcg H ospita 125 mcg 00 :00 total) by l tablet mouth daily for 90 days. rosuvastati 2022- No [id number] TAKE 1 Methodi n (CRESTOR) 01-[address] 10 mg 00:00: 00:00 MOUTH IN Hospita tablet 00 :00 THE l MORNING FOR 30 DAYS amLODIPine 2022- No [id number] 5mg QD Take 1 [facility]i (NORVASC) 5 01-06 tablet (5 st mg tablet 00:00: 00:00 mg total) Ho spita 00 :00 by mouth l daily. traZODone No 50mg QD Take 1 Metho di (DESYREL) 12-15-10 tablet (50 st 50 MG 00:00: 00:00 mg total) Hospit a tablet 00 :00 by mouth l nightly as needed for sleep. lisinopriL 2022- No [id number] 20mg QD Take 2 Methodi (PRINIVIL) 12-[address] 10 mg 00:00: 00:00 (20 mg Hospita tablet 00 :00 total) by l mouth daily for 90 days. FLUoxetine 2022- No 20mg QD Take 1 Meth monty (PROzac) 20 12-[address] MG capsule 00:00: 00:00 (20 mg Hosp radhames 00 :00 total) by l mouth nightly. choline No 135mg QD Take 1 Method i fenofibrate 12-[address] (TRILIPIX) 00:00: 00:00 (135 mg Hos kwabena 135 mg 00 :00 total) by l capsule mouth daily. Synthroid 2021- No [id number] 112ug QD Take 1 Methodi 112 mcg 12-[address] tablet 00:00: 00:00 (112 mcg Hospit a 00 :00 total) by l mouth daily for 90 days. amLODIPine 2021- No [id number] 5mg QD Take 1 Methodi (NORVASC) 5 12-15 tablet (5 st mg tablet 00:00: 00:00 mg total) Ho spita 00 :00 by mouth l daily. rosuvastati 2021- No [id number] 10mg QD Take 1 Methodi n (CRESTOR) 5-09 06-09 tablet (10 s t 10 mg 00:00: 00:00 mg total) Hospit a tablet 00 :00 by mouth l every morning for 30 days. ergocalcife Yes 5000U QD Take 5,000 Methodi rol 1-[address] (VITAMIN 00:00: mouth Hospita D2) 50,000 00 daily. l unit capsule glycopyrrol 2019-07 Yes Method i ate/formote 0-13 st rol fum 00:00: Hospita (BEVESPI 00 l AEROSPHERE INHL) Lisinopril- Lisinopril- Yes REHAL Take one UT hydroCHLORO hydroCHLORO 1-08 BHOJANI tab daily Physici thiazide thiazide 00:00: M.D. ans 10-12.5 MG 10-12.5 MG 00 Oral Tablet Oral Tablet aspirin 81 2018-07 Yes 81mg QD Take [address] MG EC 2-01 by mouth [facility] tablet 17:46: daily. [facility] [address] [place] clopidogrel 2018-07 Yes 75mg QD Take [address] (PLAVIX) 75 2-01 by mouth Luke s mg tablet 17:46: daily. Medica l [address] [place] fenofibric 2018-07 Yes 135mg QD Take [address] acid 35 mg 2-01 mg by [facility] Tab 17:46: mouth Medical 23 daily. [place] iron, 2018-07 Yes 1{tbl} QD Take [address] carbonyl 2-01 tablet by [facility] (FEOSOL) 45 17:46: mouth Medic al mg Tab 23 daily. [place] tablet FLUoxetine 2018-07 Yes 20mg QD Take [address] (PROZAC) 20 2-01 by mouth Luke s MG tablet 17:46: nightly. [facility] [address] [place] Levothyroxi Levothyroxi 2018-07 Yes RICK 1 QD TAKE 1 UT ne Sodium ne Sodium 0-17 SOHA M.D. TABLET Physici 112 MCG 112 MCG 00:00: DAILY. ans Oral Tablet Oral Tablet 00 liothyronin Yes 5ug QD Take [address] e (CYTOMEL) 3-04 by mouth Luke s 5 MCG 00:00: daily. Medical tablet 00 Center FLUoxetine FLUoxetine 2017-07 Yes KETTY TAKE 1 UT HCl - 20 MG HCl - 20 MG 0-17 LI-LINN CAPSULE AT Physici Oral Oral 00:00: LATOYA M.D. BEDTIME ans Capsule Capsule 00 Liothyronin Liothyronin 2017-07 Yes KETTY 1 QD TAKE 1 UT e Sodium 5 e Sodium 5 0-17 LI-LINN TABLET Physici MCG Oral MCG Oral 00:00: LATOYA M.D. DAILY ans Tablet Tablet 00 Rosuvastati Rosuvastati 2017-07 Yes RICK 1 QD TAKE 1 UT n Calcium n Calcium 0-17 SOHA M.D. TABLET Physici 10 MG Oral 10 MG Oral 00:00: DAILY. ans Tablet Tablet 00 Fenofibric Fenofibric 2017-07 Yes REHAL TAKE 1 UT Acid 135 MG Acid 135 MG 0-17 BHOJANI TABLET BY Physici Oral Oral 00:00: M.D. MOUTH ans Capsule Capsule 00 DAILY Delayed Delayed Release Release Irbesartan- Irbesartan- 2017-07 Yes RICK 1 QD TAKE 1 UT hydroCHLORO hydroCHLORO 0-17 SOHA M.D. TABLET Physici thiazide thiazide 00:00: DAILY; DUE ans 150-12.5 MG 150-12.5 MG 00 FOR FOLLOW Oral Tablet Oral Tablet UP levothyroxi Yes 125ug Take [address] ne 3-13 mcg by Angelica (SYNTHROID, 00:00: mouth Medic al LEVOTHROID) 00 Daily Center 125 MCG (0600). tablet rosuvastati Yes 10mg QD Take [address] n (CRESTOR) 3-12 by mouth Luke s 5 MG tablet 00:00: daily. Medi bari 00 Center irbesartan- Yes 1{tbl} QD Take [address] hydrochloro 3-12 tablet by Kiel es thiazide 00:00: mouth Medical (AVALIDE) 00 daily. Center 150-12.5 mg per tablet Caltrate Caltrate Yes UT 600+D3 Soft 600+D3 Soft P hysici CHEW CHEW ans Feosol TABS Feosol TABS Yes U T Physici ans Vitamin C Vitamin C Yes UT CAPS CAPS Physici ans Vitamin D-3 Vitamin D-3 Yes U T CAPS CAPS Physici ans Clopidogrel Clopidogrel Yes 1 QD TAKE 1 UT Bisulfate Bisulfate TABLET Phy sici 75 MG Oral 75 MG Oral DAILY. a ns Tablet Tablet NexIUM 24HR NexIUM 24HR Yes 1 tablet UT TBEC TBEC daily Physici ans Immunizations Ordered Immunization Filled Immunization Date Status Commen ts Source Name Name JUSTINE CHRISTY PF 2022-04-[address] 00:00:00 [place] [id number] 2021-12-15 Completed Methodis t MRNA VACCINATION 00:00:00 [facility] FLUZONE HIGH-DOSE 2021-04-26 Completed Meth odist 00:00:00 [place] [id number] 2020-09-24 Completed Methodis t MRNA VACCINATION 00:00:00 [place] [id number] 2020-08-18 Completed Methodis t MRNA VACCINATION 00:00:00 Hospital Vital Signs Vital Name Observation Time Observation Value Comments Source Systolic blood 2022-11-25 177 mm[Hg] [facility] pressure 14:22:00 Hospital Diastolic blood 2022-11-25 76 mm[Hg] [facility] pressure 14:22:00 Hospital Heart rate 2022-11-25 67 /min [facility] 14:22:00 [facility] Body temperature 2022-11-25 36.83 [place] [facility] 14:22:00 Hospital Body height 2022-11-25 165.6 cm [facility] 14:22:00 [facility] Body weight 2022-11-25 70.761 kg [facility] 14:22:00 [facility] BMI 2022-11-25 25.80 kg/m2 [facility] 14:22:00 Hospital Oxygen saturation 2022-11-25 99 /min [facility] in Arterial blood 14:22:00 Hospital by Pulse oximetry Respiratory rate 2022-04-13 16 /min [facility] 14:52[facility]00 [facility] BP Systolic 2019-05-14 140 mm[Hg] [facility] 10:33:00 BP Diastolic 2019-05-14 76 mm[Hg] [facility] 10:33:00 Height 2019-05-14 68 [in_us] [facility] 10:33:00 Weight 2019-05-14 160.125 [lb_av] [facility] 10:33:00 Body Mass Index 2019-05-14 24.35 kg/m2 [facility] Calculated 10:33:00 Heart Rate 2019-05-14 69 /min [facility] 10:33:00 O2 SAT 2019-05-14 98 % [facility] 10:33:00 Heart Rate 2018-09-11 69 /min [facility] 09:40:00 O2 SAT 2018-09-11 98 % [facility] 09:40:00 BP Systolic 2018-09-11 184 mm[Hg] [facility] 09:40:00 BP Diastolic 2018-09-11 78 mm[Hg] [facility] 09:40:00 Height 2018-09-11 68 [in_us] [facility] 09:40:00 Weight 2018-09-11 165.125 [lb_av] [facility] 09:40:00 Body Mass Index 2018-09-11 25.11 kg/m2 [facility] Calculated 09:40:00 Temperature 2018-09-11 97.7 [degF] Method: Oral [facility] 09:40:00 BP Systolic 2018-05-15 97 mm[Hg] [facility] 15:13:00 BP Diastolic 2018-05-15 71 mm[Hg] [facility] 15:13:00 Height 2018-05-15 68 [in_us] [facility] 15:13:00 Weight 2018-05-15 167.6 [lb_av] [facility] 15:13:00 Body Mass Index 2018-05-15 25.48 kg/m2 [facility] Cal[facility] 15:13:00 Temperature 2018-05-15 97.3 [degF] Method: Oral [facility] 15:13:00 Heart Rate 2018-05-15 76 /min [facility] 15:13:00 O2 SAT 2018-05-15 98 % [facility] 15:13:00 Procedures Procedure Date / Time Performing Clinician Source Performed T4, FREE 2022-11-15 16:28:00 Kenneth Conde [facility] T3, FREE 2022-11-15 16:28:00 Kenneth Conde [facility] THYROID STIMULATING HORMONE 2022-11-15 16:28:00 Kenneth Conde [facility] THYROID STIMULATING HORMONE 2022-08-30 15:45:00 Kenneth Conde [facility] T4, FREE 2022-08-30 15:45:00 Kenneth Conde Ho spital T3, FREE 2022-08-30 15:45:00 Kenneth Conde [facility]ital TOTAL IRON BINDING CAPACITY 2022-08-30 15:45:00 [facility] FERRITIN LEVEL 2022-08-30 15:45:00 [facility] spital CBC WITH PLATELET AND 2022-08-30 15:45:00 [facility] DIFFERENTIAL VITAMIN D 25 HYDROXY LEVEL 2022-08-30 15:45:00 [facility] COMPREHENSIVE METABOLIC 2022-08-30 15:45:00 [facility] PANEL URINALYSIS SCREEN AND 2022-08-30 15:45:00 [facility] MICROSCOPY, WITH REFLEX TO CULTURE T3 2022-04-13 15:52:00 [facility] Nwanyinnm T4, FREE 2022-04-13 15:52:00 [facility] Stephenvilletal anyinnm THYROID STIMULATING HORMONE 2022-04-13 15:52:00 [facility] Nwanyinnm URIC ACID LEVEL 2022-04-13 15:47:00 [facility] spital Nwanyinma BONE DENSITY 2022-01-12 19:25:39 [facility] BONE DENSITY PERIPHERAL 2022-01-12 19:25:02 [facility] Bianca [facility] total [facility] of [facility] Plan of Care Planned Activity Planned Date Details Comments Source Future Scheduled 2022-12-07 COVID-19 VACCINE (4 [facility] Test 08:03:34 - Booster for Hospital Moderna series) [code = COVID-19 VACCINE (4 - Booster for Moderna series)] Future Scheduled 2022-12-07 SHINGLES VACCINES (1 [facility]poned from [facility] Test 08:03:34 of 2) [code = 1960 (Not Hospital SHINGLES VACCINES (1 Indicated) of 2)] Future Scheduled 2022-12-07 INFLUENZA VACCINE Method ist Test 08:03:34 [code = INFLUENZA Hospital VACCINE] Future Scheduled 2022-07-[address] [facility] Test 00:00:00 (12+) [code = [facility] DEPRESSION SCREENING (12+)] Future Scheduled 2022-07-31 FALLS RISK SCREENING [facility] Test 00:00:00 [code = FALLS RISK Medical C enter SCREENING] Future Scheduled 2022-02-09 COVID-19 VACCINE ([address] [facility] Test 00:00:00 - Booster for [facility] Moderna series) [code = COVID-19 VACCINE (4 - Booster for Moderna series)] Future Scheduled 2006 PNEUMOCOCCAL 65+ YRS [facility] Test 00:00:00 (1 - PCV) [code = Medical nter PNEUMOCOCCAL 65+ YRS (1 - PCV)] Future Scheduled 1991 SHINGLES VACCINES ([address] [facility] Test 00:00:00 of 2) [code = [facility] SHINGLES VACCINES (1 of 2)] Future Scheduled 1960 DTAP/TDAP/TD [facility] Test 00:00:00 VACCINES (1 - Tdap) [facility] [code = DTAP/TDAP/TD VACCINES (1 - Tdap)] Future Scheduled [address] [facility] Test 00:00:00 [facility] (12+) [code = Tobacco Cessation Counseling and Screening (12+)] Future Scheduled 1941 DXA SCAN [code = DXA [facility] Test 00:00:00 SCAN] [facility] Encounters Start End Encounter Admission Attending Care Care Encounter Source Date/Time Date/Time Type Type Clinicians Facility Department ID 2022-12-06 2022-12-06 Refill Madelyn, 1.2.840.1 [id number] [facility] 00:00:00 00:00:[address] Bianca 3.430.2.7 Hospit a .3.818678 l .8 2022-11-25 2022-11-25 Office Faina Conde.2.840.1 [id number] Methodi 09:30:00 10:56:07 Visit Kenneth 49384.1.[address] 3.430.2.7 Hospit a .3.436391 l .8 2022-11-25 2022-11-25 [facility] [id number] [place] 00:00:00 00:00:00 KENNETH [address] 2022-09-27 2022-09-27 Office Mindy, 1.2.840.1 [id number] Method[facility] 09:30:00 10:09:27 Visit Kenneth 99484.1.[address] 3.430.2.7 Hospit a .3.002006 l .8 2022-09-27 2022-09-27 [facility] [id number] [place] 00:00:00 00:00:00 KENNETH [address] 2022-08-30 2022-08-30 Office Mindy, 1.2.840.1 [id number] Methodi 08:45:00 09:38:19 Visit Kenneth 51719.1.[address] 3.430.2.7 Hospit a .3.085914 l .8 2022-08-30 2022-08-30 Outpatient [facility] [id number] [place] 00:00:00 00:00:00 KENNETH [address] 2022-08-16 2022-08-16 Refill Hendricks, 1.2.840.1 [id number] Methodi 00:00:00 00:00:[address] Bianca 3.430.2.7 Hospit a .3.179306 l .8 2022-07-11 2022-07-11 Refill Trent, 1.2.840.1 [id number] Methodi 00:00:00 00:00:[address] Nwanyinma 3.430.2.7 Hosp radhames .3.338169 l .8 2022-05-12 2022-05-12 Telemedici Kristenh, 1.2.840.1 [id number] Methodi 15:45:00 15:53:05 [address] Tiffanie 56895.1.[address] Nwanyinma 3.430.2.7 Hosp radhames .3.585145 l .8 2022-05-12 2022-05-12 Outpatient [facility] 2100 [id number] [place] 00:00:00 00:00:00 TIFFANIE [address] 2022-04-15 2022-04-15 Orders [facility], 1.2.840.1 [id number] Methodi 00:00:00 00:00:00 Only Tiffanie 27047.1.[address] [facility] 3.430.2.7 Hosp radhames .3.596445 l .8 2022-04-13 2022-04-13 Lab [facility], 1.2.840.1 [id number] Methodi 10:50:00 10:55:[address] [facility] 3.430.2.7 Hosp radhames .3.702538 l .8 2022-04-13 2022-04-13 Office [facility], 1.2.840.1 [id number] Methodi 10:00:00 10:35:41 Visit Tiffanie 01753.1.[address] [facility] 3.430.2.7 Hosp radhames .3.947116 l .8 2022-04-13 2022-04-13 Outpatient [facility] 2100 [id number] [place] 00:00:00 00:00:[address]AN[address] 2022-04-13 2022-04-13 Outpatient [facility] 2100 [id number] [place] 00:00:00 00:00:[address]AN[address] 2022-04-13 2022-04-13 Travel 1.2.840.1 1.2.235.721 1304 [id number] Methodi 00:00:00 00:00:[address] 3.430.2.7 0.2.7.3.698 Ho spita .3.365006 084.8 l .8 2022-03-23 2022-03-23 Telephone [facility], 1.2.840.1 [id number] Methodi 00:00:00 00:00:00 Tiffanie 81826.1.1 378 [facility] 3.430.2.7 Hosp radhames .3.442900 l .8 2022-01-13 2022-01-13 [facility] [id number] [id number] Methodi 10:00:00 10:18:22 Visit Tiffanie 75611.1.1 375 [facility] 3.430.2.7 Hosp radhames .3.575182 l .8 2022-01-13 2022-01-[address] [facility], [facility] [id number] [place] 00:00:00 00:00:00 TIFFANIE 375 Method i 2022-01-12 2022-01-12 Hospital Asked, No Pcp 1.2.840.1 [id number] Methodi 13:56:47 23:59:00 Encounter Dayami Hendricks Bianca 40559.1.[address] 3.430.2.7 Hospit a .3.170765 l .8 2022-01-12 2022-01-12 [facility] Hendricks, 1.2.840.1 [id number] [id number] Methodi 13:56:28 23:59:00 Encounter Dayami 44198.1.1 [address] Bianca 3.430.2.7 Hospit a .3.355111 l .8 2022-01-12 2022-01-12 Outpatient HENDRICKS, [facility] [id number] [place] 00:00:00 00:00:00 DAYAMI [address] 2022-01-12 2022-01-12 Outpatient HENDRICKS, [facility] [id number] [place] 00:00:00 00:00:[address] DAYAMI [address] 2022-01-12 2022-01-12 Travel 1.2.840.1 1.2.347.985 0646 [id number] Methodi 00:00:00 00:00:[address] 3.430.2.7 0.2.7.3.698 Ho spita .3.142100 084.8 l .8 2022-01-11 2022-01-11 Travel 1.2.840.1 1.2.145.720 4771 [id number] Methodi 00:00:00 00:00:[address] 3.430.2.7 0.2.7.3.698 Ho spita .3.060488 084.8 l .8 2022-01-06 2022-01-06 Travel 1.2.840.1 1.2.724.197 3877 [id number] Methodi 00:00:00 00:00:[address] 3.430.2.7 0.2.7.3.698 Ho spita .3.661901 084.8 l .8 2022-01-06 2022-01-06 Refill Hendricks, 1.2.840.1 [id number] Methodi 00:00:00 00:00:[address] Bianca 3.430.2.7 Hospit a .3.136673 l .8 2022-01-05 2022-01-05 Refill Hendricks, 1.2.840.1 [id number] Methodi 00:00:00 00:00:[address] Bianca 3.430.2.7 Hospit a .3.330400 l .8 2021-12-16 2021-12-16 Travel 1.2.840.1 1.2.799.823 1319 [id number] Methodi 00:00:00 00:00:[address] 3.430.2.7 0.2.7.3.698 Ho spita .3.231878 084.8 l .8 2021-12-15 2021-12-15 Outpatient HENDRICKS, [facility] [id number] [place] 00:00:00 00:00:00 DAYAMI [address] 2021-10-26 2021-10-26 Outpatient RENEE, [facility] [id number] [place] 00:00:00 00:00:00 GUILLERMO [address] 2021-10-26 2021-10-26 Outpatient RENEE, [facility] [id number] [place] 00:00:00 00:00:00 GUILLERMO [address] 2021-09-28 2021-09-28 Outpatient RENEE, [facility] [id number] [place] 00:00:00 00:00:00 GUILLERMO [address] 2021-09-28 2021-09-28 Outpatient RENEE, [facility] [id number] [place] 00:00:00 00:00:00 GUILLERMO 936 Method i 2021-09-07 2021-09-07 Outpatient RENEE, [facility] [id number] [place] 00:00:00 00:00:00 GUILLERMO 642 Method i 2021-08-25 2021-08-25 Outpatient RENEE, [facility] [id number] [place] 00:00:00 00:00:00 GUILLERMO [address] 2021-08-25 2021-08-25 Outpatient RENEE, [facility] [id number] [place] 00:00:00 00:00:00 GUILLERMO 508 Method i 2021-08-25 2021-08-25 Outpatient RENEE, [facility] [id number] [place] 00:00:00 00:00:00 GUILLERMO 386 Method i 2021-04-26 2021-04-26 Outpatient HENDRICKS, [facility] [id number] [place] 00:00:00 00:00:00 DAYAMI 507 Meth[address] 2020-12-01 2020-12-01 Outpatient [facility] [id number] [place] 00:00:00 00:00:00 497 Method i 2020-11-30 2020-11-30 Outpatient DUBOIS, [facility] [id number] [place] 00:00:00 00:00:00 ALBERT 854 Metho di 2020-11-10 2020-11-10 Outpatient [facility] [id number] [place] 00:00:00 00:00:00 445 Method i 2020-11-05 2020-11-05 Outpatient HENDRICKS, [facility] [id number] [place] 00:00:00 00:00:00 DAYAMI [address] 2020-10-27 2020-10-27 Outpatient [facility] [id number] [place] 00:00:00 00:00:[address] 2020-09-24 2020-09-24 Outpatient [facility] [id number] [place] 00:00:00 00:00:[address] 2020-08-18 2020-08-18 Outpatient [facility] [id number] [place] 00:00:00 00:00:[address] 2020-05-19 2020-05-19 Outpatient HENDRICKS, [facility] [id number] [place] 00:00:00 00:00:00 DAYAMI [address] 2020-05-19 2020-05-19 Outpatient [facility] [id number] [place] 00:00:00 00:00:[address] 2020-04-17 2020-04-17 Outpatient PRISCILLA, [facility] [id number] [id number] [place] 00:00:00 00:00:00 RALEIGH [address] 2020-04-14 2020-04-14 Outpatient CONSTANCE, [facility] [id number] [place] 00:00:00 00:00:00 KETTY [address] 2020-04-13 2020-04-13 Outpatient PRISCILLA, [facility] [id number] [place] 00:00:00 00:00:00 RALEIGH [address] 2020-04-13 2020-04-13 Outpatient CONSTANCE, [facility] [id number] [place] 00:00:00 00:00:00 KETTY [address] 2020-04-08 2020-04-08 Outpatient RECONSUELO, LEÓN [facility] [id number] [place] 00:00:00 00:00:[address] 2020-03-31 2020-04-02 Inpatient RECONSUELO, ROSS [facility] 021 [id number] [place] 00:00:00 00:00:[address] 2020-03-30 2020-03-30 Outpatient PRISCILLA, [facility] [id number] [place] 00:00:00 00:00:00 RALEIGH [address] 2020-03-30 2020-03-30 Outpatient REUL, LEÓN [facility] [id number] [place] 00:00:00 00:00:[address] 2020-03-30 2020-03-30 Outpatient REUL, LEÓN [facility] [id number] [id number] [place] 00:00:00 00:00:[address] 2020-03-24 2020-03-24 Outpatient REUL, LEÓN [facility] [id number] [place] 00:00:00 00:00:[address] 2020-03-24 2020-03-24 Outpatient REUL, LEÓN [facility] [id number] [id number] [place] 00:00:00 00:00:[address] 2020-03-24 2020-03-24 Outpatient REUL, LEÓN [facility] [id number] [place] 00:00:00 00:00:[address] 2020-03-24 2020-03-24 Outpatient REUL, LEÓN [facility] [id number] [place] 00:00:00 00:00:[address] 2020-03-18 2020-03-18 Outpatient REUL, LEÓN [facility] [id number] [place] 00:00:00 00:00:[address] 2020-03-10 2020-03-10 Outpatient PRISCILLA, [facility] [id number] [place] 00:00:00 00:00:00 RALEIGH [address] 2020-03-06 2020-03-06 Outpatient HENDRICKS, [facility] [id number] [place] 00:00:00 00:00:00 DAYAMI [address] 2020-03-05 2020-03-05 Outpatient [facility] [id number] [place] 00:00:00 00:00:[address] 2020-03-05 2020-03-05 Outpatient PRISCILLA, [facility] [id number] [place] 00:00:00 00:00:00 RALEIGH [address] 2020-03-03 2020-03-03 Outpatient [facility] [id number] [place] 00:00:00 00:00:[address] 2019-11-12 2019-11-12 MERLIN Sweeney [id number] [place] 08:00:00 08:00:00 t; SOHA, RICKTeresa ZALDIVAR M.D. ans M.D. 2019-11-07 2019-11-07 Appointmen [facility] Orthopedics [id number] [place] 10:45:00 10:45:00 t; CHAVO KLEIN, - [place] [facility] KETTY KLEIN, IRMA HDEZ M.D. M.D. 2019-05-14 2019-05-14 Appointmen [facility] Orthopedics [id number] [place] 08:00:00 08:00:00 t; RICK HOYOS, - [place] Teresa CABRERA M.D. [facility] christian Pena Seadrift 2018-09-11 2018-09-11 Appointmen [facility] Orthopedics [id number] [place] 09:00:00 09:00:00 t; RICK HOYOS, [facility] Jean Avendano M.D. 2018-05-15 2018-05-15 Appointmen [facility] [id number] [place] 09:00:00 09:00:00 t; RICK HOYOS, Orthopedics Jean Campbell M.D. 2018-05-15 2018-05-15 Appointmen [facility] [id number] [place] 07:45:00 07:45:00 t; RICK HOYOS Phy sici JOCELYN, M.D. ans M.D. Results Test Description Test Time Test Comments Results Result Comments Source T4, free 2022-11-16 04:36:00 Test Item Value Reference Range Interpretation Comme nts T4, free (test code = 3024-7) 1.4 ng/dL 0.8-1.8 GUILLERMINA (test code = GUILLERMINA) FASTING:YES FASTING: YES RAC (test code = RAC) Performing Organization Information: Site ID: A Name: [facility] Address: [address] [place] [id number] Director: Alexis Barragan [facility] stimulating [id number] 04:36:00 Test Item Value Reference Range Interpretation Comments TSH (test 0.56 See_Comment [Automated mes daniel] code = The system [facility] h 3016-3) generated this result transmit kelly reference range : 0.40 - 4.50 mIU /L. The reference r leroy was not used to interpret this result as normal/abnormal . GUILLERMINA (test FASTING:YES FASTING: code = GUILLERMINA) YES RAC (test Performing code = RAC) Organization Information: Site ID: LUCIE Name: [facility] Lab Address: [address] [place] [phone] Director: Alexis Villaseñorridge [facility] Hospital[facility], [id number] 04:36:00 Test Item Value Reference Range Interpretation Comments T3, free (test code = 2.0 pg/mL 2.3-4.2 L 3051-0) GUILLERMINA (test code = GUILLERMINA) FASTING:YES FASTING: YES RAC (test code = RAC) Performing Organization Information: Site ID: LUCIE Name: [facility] Lab Address: [address] [place] [address] Director: Temple Jagjit [place] Lab Interpretation (test Abnormal code = 14742-6) [facility] [id number] 13:24:00 Test Item Value Reference Range Interpretation Comments Glucose (test code = 93 mg/dL 65-99 Fastin g 2345-7) reference interval BUN (test code = 20 mg/dL 7-25 3094-0) Creatinine (test 1.01 mg/dL 0.60-0.95 H code = 2160-0) eGFR (test code = 56 See_Comment L The eGFR i s based 90972-2) on the CKD-EPI 2020 equation. To calculate the n ew eGFR from a previous Creatinine or Cystatin Cresul t, go to [email or web address]://[email or web address] ne y.org/professio na ls/kdoqi/gfr%5F ca lculator [Automated message] The system which generated this result transmitted reference range : > OR = 60 mL/min/1.73m2. The reference range was not used to interpr et this result as normal/abnormal . BUN/creatinine ratio 20 See_Comment [Autom ated (test code = 3097-3) message ] The system which generated this result transmitted reference range : 6 - 22 (calc). The reference range was not used to interpr et this result as normal/abnormal . Sodium (test code = 137 mmol/L 583-666 7541-2) Potassium (test code 5.3 mmol/L 3.5-5.3 = 2823-3) Chloride (test code 102 mmol/L 98-110 = 2075-0) CO2 (test code = 27 mmol/L 20-32 2027-9) Calcium (test code = 10.2 mg/dL 8.6-10.4 97123-0) Protein (test code = 7.2 g/dL 6.1-8.1 2885-2) Albumin, S (test 4.4 g/dL 3.6-5.1 code = 1751-7) Globulin, total 2.8 See_Comment [Automated (test code = message] The 74202-7) system which generated this result transmitted reference range : 1.9 - 3.7 g/dL (calc). The reference range was not used to interpret this result as normal/abnormal . Albumin/globulin 1.6 See_Comment [Automated ratio (test code = message] The 0) system which generated this result transmitted reference range : 1.0 - 2.5 (calc ). The reference range was not used to interpr et this result as normal/abnormal . Total bilirubin 0.5 mg/dL 0.2-1.2 (test code = 1974-2) Alkaline phosphatase 34 U/L 37-153 L (test code = 6768-6) AST (test code = 19 U/L 10-35 1920-8) ALT (test code = 11 U/L 6-29 1742-6) GUILLERMINA (test code = FASTING:YES GUILLERMINA) FASTING: YES RAC (test code = Performing RAC) Organization Information: Site ID: [facility] Name: [facility] Lab Address: [address] [place] [phone] Director: Alexis Barragan Lab Interpretation Abnormal (test code = 98832-2) [facility] [id number] 13:24:00 Test Item Value Reference Range Interpretation Comments Ferritin level (test 175 ng/mL 16-288 code = 2276-4) GUILLERMINA (test code = GUILLERMINA) FASTING:YES FASTING: YES RAC (test code = RAC) Performing Organization Information: Site ID: [facility] Name: [facility] Lab Address: [address] [place] [phone] Director: Alexis Barragan [facility] with platelet and [id number] 13:24:00 Test Item Value Reference Range Interpretation Comments WBC (test code = 5.8 See_Comment [Automated 9490-2) message] The system which generated this result transmitted reference range : 3.8 - 10.8 Thousand/uL. Th e reference range was not used to interpret this result as normal/abnormal . RBC (test code = 3.60 See_Comment L [Automated 789-8) message] The system which generated this result transmitted reference range : 3.80 - 5.10 Million/uL. The reference range was not used to interpret this result as normal/abnormal . HGB (test code = 11.0 g/dL 11.7-15.5 L 718-7) HCT (test code = 33.1 % 35.0-45.0 L 4544-3) MCV (test code = 91.9 fL 80.0-100.0 787-2) MCH (test code = 30.6 pg 27.0-33.0 785-6) MCHC (test code = 33.2 g/dL 32.0-36.0 786-4) RDW (test code = 11.5 % 11.0-15.0 788-0) Platelet count (test 318 See_Comment [Autom ated code = 777-3) message] The system which generated this result transmitted reference range : 140 - 400 Thousand/uL. Th e reference range was not used to interpret this result as normal/abnormal . MPV (test code = 11.1 fL 7.5-12.5 776-5) Neutrophils, 3758 See_Comment [Automated absolute (test code message] The = 751-8) system which generated this result transmitted reference range : 1,500 - 7,800 cells/uL. The reference range was not used to interpret this result as normal/abnormal . Lymphocytes, 1299 See_Comment [Automated absolute (test code message] The = 731-0) system which generated this result transmitted reference range : 850 - 3,900 cells/uL. The reference range was not used to interpret this result as normal/abnormal . Monocytes, absolute 441 See_Comment [Automa kelly (test code = 742-7) message] The system which generated this result transmitted reference range : 200 - 950 cells/uL. The reference range was not used to interpret this result as normal/abnormal . Eosinophils, 261 See_Comment [Automated absolute (test code message] The = 711-2) system which generated this result transmitted reference range : 15 - 500 cells/uL. The reference range was not used to interpret this result as normal/abnormal . Basophils, absolute 41 See_Comment [Automa kelly (test code = 704-7) message] The system which generated this result transmitted reference range : 0 - 200 cells/u L. The reference range was not used to interpr et this result as normal/abnormal . Neutrophils (test 64.8 % code = 770-8) Lymphocytes (test 22.4 % code = 736-9) Monocytes (test code 7.6 % = 5905-5) Eosinophils (test 4.5 % code = 713-8) Basophils + RC (test 0.7 % code = 706-2) GUILLERMINA (test code = FASTING:YES GUILLERMINA) FASTING: YES RAC (test code = Performing RAC) Organization Information: Site ID: [facility] Name: [facility] Address: [address] [place] [id number] Director: Alexis Barragan Lab Interpretation Abnormal (test code = 48058-6) [facility] [id number] 13:24:00 Test Item Value Reference Range Interpretation Comments Vitamin D, 34 ng/mL 30-100 Vitamin D Statu s 25-hydroxy (test 25-OH Vitam in D: code = 1988-) Deficiency: < 20 ng/mLInsufficie ncy : 20 - 29 ng/mLOptimal: > or = 30 ng/mL For 25-OH Vitamin D testing on patients on D2-supplementat ion and patients fo r whom quantitati on of D2 and D3 fractions is required, the QuestAssureD(TM )25 -OH VIT D, (D2,D3), LC/MS/ MS is recommended: order code 9288 8 (patients >2yrs).See Note 1 Note 1 For additional information, please refer to [email or web address] m/faq/[id number] (T his link is being provided for informational/e sanchez ational purpose s only.) GUILLERMINA (test code = FASTING:YES FASTING: GUILLERMINA) YES RAC (test code = Performing RAC) Organization Information: Site ID: RGA Name: [facility] Address: [address] [place] [id number] Director: Alex[facility]onH[facility] iron binding [id number] 13:24:00 Test Item Value Reference Range Interpretation Comments Iron level (test 115 See_Comment [Automated code = 2498-4) message] The system which generated this result transmit kelly reference range : 45 - 160 mcg/dL . The reference range was not u sed to interpret th is result as normal/abnormal . Iron binding 399 See_Comment [Automated capacity (test message] The code = 2500-7) system which generated this result transmit kelly reference range : 250 - 450 mcg/d L (calc). The reference range was not used to interpret this result as normal/abnormal . Iron saturation 29 See_Comment [Automated (test code = message] The 2502-3) system which generated this result transmit kelly reference range : 16 - 45 % (calc ). The reference range was not u sed to interpret th is result as normal/abnormal . GUILLERMINA (test code = FASTING:YES GUILLERMINA) FASTING: YES RAC (test code = Performing RAC) Organization Information: Site ID: RGA Name: [facility] Address: [address] [place] [phone] Director: Alexis MckeonH[facility]inalysis screen and microscopy, with reflex to culture 2022-09-01 13:24:00 Test Item Value Reference Interpretation Comments Range Color, UA (test code YELLOW YELLOW = 5778-6) Appearance (test CLEAR CLEAR code = 5767-9) Specific gravity, 1.008 1.001-1.035 urine (test code = 5811-5) pH, urine (test code 5.5 5.0-8.0 = 5803-2) Glucose, urine (test NEGATIVE NEGATIVE code = 40785-7) Bilirubin, UA (test NEGATIVE NEGATIVE code = 5770-3) Ketones, UA (test NEGATIVE NEGATIVE code = 6724-8) Occult blood, urine NEGATIVE NEGATIVE (test code = 5794-3) Protein, UA (test NEGATIVE NEGATIVE code = 89586-1) Nitrite, UA (test NEGATIVE NEGATIVE code = 5802-4) Leukocyte esterase, TRACE NEGATIVE A UA (test code = 5799-2) WBC, UA (test code = NONE SEEN See_Comment [Autom ated 5821-4) message] The sy stem which generated this result transmitted reference range : < OR = 5 /HPF. Th e reference range was not used to interpret this result as normal/abnormal . RBC, UA (test code = NONE SEEN See_Comment [Autom ated 27685-0) message] The sy stem which generated this result transmitted reference range : < OR = 2 /HPF. Th e reference range was not used to interpret this result as normal/abnormal . Squamous epithelial NONE SEEN See_Comment [Automa kelly cells, UA (test code message ] The system = 40411-9) which generated this result transmitted reference range : < OR = 5 /HPF. Th e reference range was not used to interpret this result as normal/abnormal . Bacteria, UA (test NONE SEEN NONE SEEN /HPF code = 5769-5) Hyaline casts, UA NONE SEEN NONE SEEN /LPF (test code = 5796-8) Note: (test code = This urin e was 8251-1) analyzed for th e presence of WBC , RBC, bacteria, casts, and othe r formed elements . Only those yankton ents seen were repor kelly. Urine culture (test SEE NOTE CULTURE , URINE, code = 630-4) ROUTINE Micro Number: [id number] 1 Test Status: Fi nal Specimen Source : Urine Specimen Quality: Adequa te Result: Mixed genital tenisha isolated. These superficial bacteria are no t indicative of a urinary tract infection. No further organis m identification is warranted on th is specimen. If clinically indicated, recollect clean-catch, mid-stream uri ne and transfer immediately to Urine Culture Transport Tube. GUILLERMINA (test code = FASTING:YES GUILLERMINA) FASTING: YES RAC (test code = Performing RAC) Organization Information: Site ID: [facility]GA Name: [facility] Address: [address] [place] [id number] Director: Alexis Barragan Lab Interpretation Abnormal (test code = 41292-7) Jamarcus MalikARS-CoV-2 (COVID-19) RNA [Presence] in Respiratory specimen by HANNAH with probe [id number] 18:24:22 Test Item Value Reference Range Interpretation Comments SARS-CoV-2 (COVID-19) RNA Not detected Not-Detected [Presence] in Respiratory specimen by HANNAH with probe detection (test code = 44874-7) MONTSERRAT RUSTSARS-CoV-2 (COVID-19) RNA [Presence] in Respiratory specimen by HANNAH with probe [id number] 14:46:45 Test Item Value Reference Range Interpretation Comments SARS-CoV-2 (COVID-19) RNA Not detected Not-Detected [Presence] in Respiratory specimen by HANNAH with probe detection (test code = 05601-0) MONTSERRAT RUSTSARS-CoV-2 (COVID-19) RNA [Presence] in Respiratory specimen by HANNAH with probe [id number] 21:12:02 Test Item Value Reference Range Interpretation Comments SARS-CoV-2 (COVID-19) RNA Not detected Not-Detected [Presence] in Respiratory specimen by HANNAH with probe detection (test code = 36314-2) MARIANO JAMARCUS YOCASTAHEMOGLOBIN AND [id number] 11:51:00 Test Item Value Reference Range Interpretation [...] % 20-55 H (test code = 2590) [id number] 06:02:00 Test Item Value Reference Range Interpretation Comments FERRITIN (BEAKER) (test code = 361) 57 ng/mL 5-275 BASIC METABOLIC [id number] 05:01:00 Test Item Value Reference Range Interpretation [...] APPLICABLE FOR DIALYSIS PATIEN TS. HEMOGLOBIN AND [id number] 04:51:00 Test Item Value Reference Range Interpretation Comments HEMOGLOBIN (BEAKER) (test code = 7.7 GM/DL 11.2-15.7 L 410) HEMATOCRIT (BEAKER) (test code = 23.0 % 34.1-44.9 L 411) CBC W/PLT COUNT & AUTO [id number] 04:51:00 Test Item Value Reference Range Interpretation [...] (BEAKER) (test code = 2801) HEMOGLOBIN AND [id number] 22:14:00 Test Item Value Reference Range Interpretation Comments HEMOGLOBIN (BEAKER) (test code = 7.7 GM/DL 11.2-15.7 L 410) HEMATOCRIT (BEAKER) (test code = 23.2 % 34.1-44.9 L 411) HEMOGLOBIN AND [id number] 17:09:00 Test Item Value Reference Range Interpretation Comments HEMOGLOBIN (BEAKER) (test code = 7.2 GM/DL 11.2-15.7 L 410) HEMATOCRIT (BEAKER) (test code = 21.0 % 34.1-44.9 L 411) HEMOGLOBIN AND [id number] 07:17:00 Test Item Value Reference Range Interpretation Comments HEMOGLOBIN (BEAKER) (test code = 7.4 GM/DL 11.2-15.7 L 410) HEMATOCRIT (BEAKER) (test code = 22.3 % 34.1-44.9 L 411) BASIC METABOLIC [id number] 05:59:00 Test Item Value Reference Range Interpretation [...] APPLICABLE FOR DIALYSIS PATIEN TS. HEMOGLOBIN AND [id number] 01:01:00 Test Item Value Reference Range Interpretation Comments HEMOGLOBIN (BEAKER) (test code = 7.8 GM/DL 11.2-15.7 L 410) HEMATOCRIT (BEAKER) (test code = 23.5 % 34.1-44.9 L 411) CBC W/PLT COUNT & AUTO [id number] 01:01:00 Test Item Value Reference Range Interpretation [...] 0-1 PERCENT (BEAKER) (test code = 2801) [id number] 17:58:00 Test Item Value Reference Range Interpretation [...] thrombosis and/or pulmonary embolus.HIGH RISK: Target INR is 2.5-3.5 for patients wiht mechanical heart valves.BASIC METABOLIC [id number] 17:45:00 Test Item Value Reference Range Interpretation [...] PATIEN TS. CBC W/PLT COUNT & AUTO [id number] 17:24:00 Test Item Value Reference Range Interpretation [...] 0-1 PERCENT (BEAKER) (test code = 2801) [[facility]] URINALYSIS, [id number] 12:48:01 Test Item Value Reference Range Interpretation Comments Urinalysis w/ Microscopic Cancel Reason: No (test code = 99764-2) Sample [facility]] CBC (INCLUDES DIFF/PLT)2019-05-14 08:30:01 Test Item Value Reference Range Interpretation Comments WBC (test code = 6690-2) 5.3 {K/CMM} 3.7-10.4 RBC; Below Low Threshold (test 3.31 {M/CMM} 4.20-5.40 code = 789-8) Hgb; Below Low Threshold (test 10.4 g/dl 12.0-16.0 code = 718-7) Hct; Below Low Threshold (test 29.4 % 36.0-48.0 code = 54941-2) MCV (test code = 787-2) 88.9 fL 80.0-98.0 MCH; Above High Threshold (test 31.3 pg 27.0-31.0 code = 785-6) MCHC (test code = 786-4) 35.2 g/dl 32.0-36.0 RDW (test code = 788-0) 12.4 % 11.5-14.5 Platelet (test code = 38925-1) 280 {K/CMM} 133-450 Mean Platelet Volume (test code 8.7 fL 7.4-10.4 = 54562-1) [facility][QL] [id number] 08:30:01 Test Item Value Reference Range Interpretation Comments Segmented Neutrophils (test code 64.1 % 45.0-75.0 = 50544-4) Monocytes (test code = 51931-5) 9.7 % 2.0-12.0 Lymphocytes (test code = 34799-5) 21.1 % 20.0-40.0 Eosinophils; Above High Threshold 4.3 % 0.0-4.0 (test code = 95182-6) Basophils (test code = 706-2) 0.8 % 0.0-1.0 Segs-Bands # (test code = 3.4 {K/CMM} 1.5-8.1 21496-8) Lymphocytes # (test code = 1.1 {K/CMM} 1.0-5.5 61649-4) Monocytes # (test code = 62940-5) 0.5 {K/CMM} 0.0-0.8 Eosinophils # (test code = 0.2 {K/CMM} 0.0-0.5 03651-3) [facility][QL] HEMOGLOBIN [id number] 08:30:01 Test Item Value Reference Range Interpretation Comments Hemoglobin A1c (test code = 4548-4) 4.9 % <=5.6 [facility][QL] T3, [id number] 08:30:01 Test Item Value Reference Range Interpretation Comments T3 Total (test code = 3053-6) 0.80 ng/ml 0.60-1.81 [facility][QL] CMP [id number] 08:30:01 Test Item Value Reference Range Interpretation Comments Sodium Level; 132 {mEq/l} 135-145 Below Low Threshold (test code = 2951-2) Potassium Level 4.2 {mEq/l} 3.5-5.1 (test code = 2823-3) Chloride Level 96 {mEq/l} 95-109 (test code = 2075-0) Carbon Dioxide; 23 {mEq/l} 24-32 Below Low Threshold (test code = 8-9) AGAP (test code = 17.2 {mEq/l} 10.0-20.0 05238-5) Glucose Lvl (test 92 mg/dl 70-99 Adult refe rence range code = 2345-7) values reflec t the clinical guidel inesof the [place] [employer] es [employer]. Creatinine Lvl 1.20 mg/dl 0.50-1.40 (test code = 2160-0) Blood Urea 22 mg/dl 7-22 Nitrogen (test code = 3094-0) BUN/Creatinine 18 6-25 Ratio (test code = 3097-3) Total Protein 7.3 g/dl 6.4-8.4 (test code = 2885-2) Albumin Lvl (test 4.4 g/dl 3.5-5.0 code = 1751-7) Globulin (test 2.9 g/dl 2.7-4.2 code = 32561-1) A/G Ratio (test 1.5 0.7-1.6 code = 1759-0) Calcium Level 9.9 mg/dl 8.5-10.5 Total (test code = 50362-9) ALT (test code = 22 u/l 0-65 1743-4) AST (test code = 22 u/l 0-37 28406-1) Bili Total (test 0.3 mg/dl 0.2-1.3 code = 1975-2) Alk Phos (test 42 u/l 39-136 The pediatric reference code = 1783-0) ranges for th is test represent a CLSI-basedtrans ference of the CALIPER romeo abase of pediatric refer ence intervals to [employer] [place] analyzer (Clinical Biochemistry 46 (2013): 5708-0186). The [facility] has not internally validated these reference ranges and therefore they should be used only in e context of a thoroughcl inical assessment. eGFR (test code = 44 The eGFR i s calculated 80209-5) {ML/MIN/1.7} using the CKD-E PI formula. In [...] be multiplied by t he estimated BMI. [facility]] LIPID [id number] 08:30:01 Test Item Value Reference Range Interpretation Comments Chol (test code = 2093-3) 175 mg/dl <=199 Trig (test code = 2571-8) 98 mg/dl <=149 HDL Cholesterol; Below Low 59 mg/dl >=61 Threshold (test code = 2085-9) CHD Risk; Below Low Threshold (test 2.97 3.90-5.80 code = 61031-3) LDL (test code = 08281-1) 96 mg/dl <=99 VLDL (test code = VLDL) 20 [facility][QL] T4, [id number] 08:30:01 Test Item Value Reference Range Interpretation Comments T4 Free (test code = 3024-7) 1.42 ng/dl 0.76-1.46 [facility][QL] TSH, 3RD [id number] 08:30:01 Test Item Value Reference Range Interpretation Comments TSH; Below Low Threshold (test 0.083 {uIU/ml} 0.360-3.740 code = 48826-9) [facility][QL] CMP [id number] 09:27:01 Test Item Value Reference Range Interpretation Comments Sodium Level; 133 {mEq/l} 135-145 Below Low Threshold (test code = 2951-2) Potassium Level 4.5 {mEq/l} 3.5-5.1 (test code = 2823-3) Chloride Level 97 {mEq/l} 95-109 (test code = 5-0) Carbon Dioxide 26 {mEq/l} 24-32 (test code = 2027-9) AGAP (test code = 14.5 {mEq/l} 10.0-20.0 99557-3) Glucose Lvl (test 91 mg/dl 70-99 Adult refe rence range code = 2345-7) values reflec t the clinical guidel inesof the [place] [employer] es Association. Creatinine Lvl 1.10 mg/dl 0.50-1.40 (test code = 2160-0) Blood Urea 21 mg/dl 7-22 Nitrogen (test code = 3094-0) BUN/Creatinine 19 6-25 Ratio (test code = 3097-3) Total Protein 7.6 g/dl 6.4-8.4 (test code = 2885-2) Albumin Lvl (test 4.4 g/dl 3.5-5.0 code = 1751-7) Globulin (test 3.2 g/dl 2.7-4.2 code = 76997-6) A/G Ratio (test 1.4 0.7-1.6 code = 1759-0) Calcium Level 9.6 mg/dl 8.5-10.5 Total (test code = 18969-8) ALT (test code = 22 u/l 0-65 1743-4) AST (test code = 21 u/l 0-37 30308-0) Bili Total (test 0.4 mg/dl 0.2-1.3 code = 1974-) Alk Phos (test 47 u/l 39-136 code = 1783-0) eGFR (test code = 49 The eGFR i s calculated 08300-7) {ML/MIN/1.7} using the CKD-E PI formula. In [...] be multiplied by t he estimated BMI. [facility][QLH] T4, [id number] 09:27:01 Test Item Value Reference Range Interpretation Comments T4 Free (test code = 3024-7) 1.44 ng/dl 0.76-1.46 [facility][QL] TSH, 3RD [id number] 09:27:01 Test Item Value Reference Range Interpretation Comments TSH; Below Low Threshold (test 0.155 {uIU/ml} 0.360-3.740 code = 69576-9) [facility][QL] T3, [id number] 09:27:01 Test Item Value Reference Range Interpretation Comments T3 Total; Below Low Threshold 0.55 ng/ml 0.60-1.81 (test code = 3053-6) [facility][QL] T3, [id number] 10:51:01 Test Item Value Reference Range Interpretation Comments T3 Total (test code = 3053-6) 0.69 ng/ml 0.60-1.81 [facility][QL[facility]] CMP [id number] 10:51:01 Test Item Value Reference Range Interpretation Comments Sodium Level 135 {mEq/l} 135-145 (test code = 2951-2) Potassium Level 4.5 {mEq/l} 3.5-5.1 (test code = 2823-3) Chloride Level 97 {mEq/l} 95-109 (test code = 5-0) Carbon Dioxide 28 {mEq/l} 24-32 (test code = 2027-) AGAP (test code = 14.5 {mEq/l} 10.0-20.0 71511-3) Glucose Lvl (test 90 mg/dl 70-99 Adult refe rence range code = 2345-7) values reflec t the clinical guidel inesof the [place] [employer]. Creatinine Lvl 1.20 mg/dl 0.50-1.40 (test code = 2160-0) Blood Urea 23 mg/dl 7-22 Nitrogen; Above High Threshold (test code = 3094-0) BUN/Creatinine 19 6-25 Ratio (test code = 3097-3) Total Protein 8.0 g/dl 6.4-8.4 (test code = 2885-2) Albumin Lvl (test 4.4 g/dl 3.5-5.0 code = 1751-7) Globulin (test 3.6 g/dl 2.7-4.2 code = 57770-5) A/G Ratio (test 1.2 0.7-1.6 code = 1759-0) Calcium Level 9.5 mg/dl 8.5-10.5 Total (test code = 31180-0) ALT (test code = 28 u/l 0-65 1743-4) AST (test code = 26 u/l 0-37 57054-6) Bili Total (test 0.3 mg/dl 0.2-1.3 code = 1974-2) Alk Phos (test 47 u/l 39-136 code = 1783-0) eGFR (test code = 44 The eGFR i s calculated 89042-5) {ML/MIN/1.7} using the CKD-E PI formula. In [...] of body mass index for purposes of brenad g dosing, the eGFR should be multiplied by t he estimated BMI. [facility]] LIPID [id number] 10:51:01 Test Item Value Reference Range Interpretation Comments Chol (test code = 2093-3) 142 mg/dl <=199 Trig (test code = 2571-8) 69 mg/dl <=149 HDL Cholesterol (test code = 61 mg/dl >=61 2085-9) CHD Risk; Below Low Threshold (test 2.33 3.90-5.80 code = 59232-4) LDL (test code = 29764-3) 67 mg/dl <=99 VLDL (test code = VLDL) 14 [facility]] T4, [id number] 10:51:01 Test Item Value Reference Range Interpretation Comments T4 Free (test code = 3024-7) 1.22 ng/dl 0.76-1.46 [facility]] TSH, 3RD [id number] 10:51:01 Test Item Value Reference Range Interpretation Comments TSH; Below Low Threshold (test 0.180 {uIU/ml} 0.360-3.740 code = 97450-9) [facility]] CBC (INCLUDES DIFF/PLT)2018-05-15 10:51:01 Test Item Value Reference Range Interpretation Comments WBC (test code = 6690-2) 7.3 {K/CMM} 3.7-10.4 RBC; Below Low Threshold (test 3.40 {M/CMM} 4.20-5.40 code = 789-8) Hgb; Below Low Threshold (test 10.4 g/dl 12.0-16.0 code = 718-7) Hct; Below Low Threshold (test 29.7 % 36.0-48.0 code = 69268-6) MCV (test code = 787-2) 87.4 fL 80.0-98.0 MCH (test code = 785-6) 30.6 pg 27.0-31.0 MCHC (test code = 786-4) 35.1 g/dl 32.0-36.0 RDW (test code = 788-0) 12.5 % 11.5-14.5 Platelet (test code = 70382-0) 343 {K/CMM} 133-450 Mean Platelet Volume (test code 9.1 fL 7.4-10.4 = 02863-7) [facility]] [id number] 10:51:01 Test Item Value Reference Range Interpretation Comments Segmented Neutrophils (test code 67.3 % 45.0-75.0 = 21389-7) Monocytes (test code = 23558-7) 7.9 % 2.0-12.0 Lymphocytes (test code = 82769-6) 21.0 % 20.0-40.0 Eosinophils (test code = 82795-4) 3.2 % 0.0-4.0 Basophils (test code = 706-2) 0.6 % 0.0-1.0 Segs-Bands # (test code = 4.9 {K/CMM} 1.5-8.1 51181-1) Lymphocytes # (test code = 1.5 {K/CMM} 1.0-5.5 99251-7) Monocytes # (test code = 16825-0) 0.6 {K/CMM} 0.0-0.8 Eosinophils # (test code = 0.2 {K/CMM} 0.0-0.5 12186-8) [facility]
--- NOTE | 2022-12-16 03:32 | EDPHYS ---
Physician Documentation [facility] Name: Aurea Londono Age: 82 yrs Sex: Female : 1940 Arrival Date: 12/16/2022 Time: 03:05 Bed 5 Private MD: ED Physician Bari Mendez HPI: 12/16 03:29 This 82 yrs old Female presents to ER via Unassigned with complaints of BODYACHES, sp3 COVID +. 03:29 82-year-old female with no significant past medical history now presents with chief sp3 complaint body aches after being diagnosed with COVID-19 earlier this week. She is taking p.o. Tylenol and Benadryl at home but states she would like something little stronger for her joint aches and is asking general guidance on how to take care of COVID. She reports no shortness of breath, peripheral edema, chest pain, syncope, GI symptoms, or any other signs or symptoms on review of systems at this time.. Historical: - Allergies: 03:12 No Known Allergies; ha1 - Home Meds: 03:12 amlodipine oral [Active]; ha1 - PMHx: 03:45 "Left arm blockage"; arterial sclerosis; Depression; Anemia; Hyperlipidemia; kd3 Hypertension; 03:12 "Left arm blockage"; Anemia; arterial sclerosis; Depression; Hyperlipidemia; ha1 Hypertension; - Immunization history:: Adult Immunizations up to date, Adult Immunizations up to date. - Social history:: Smoking status: Patient denies any tobacco usage or history of. Smoking status: unknown. ROS: 03:29 Constitutional: Negative for fever, chills, and weight loss, Eyes: Negative for injury, sp3 pain, redness, and discharge, Neck: Negative for injury, pain, and swelling, Cardiovascular: Negative for chest pain, palpitations, and edema, Abdomen/GI: Negative for abdominal pain, nausea, vomiting, diarrhea, and constipation, Back: Negative for injury and pain, Skin: Negative for injury, rash, and discoloration, Neuro: Negative for headache, weakness, numbness, tingling, and seizure. 03:29 All other systems are negative. Exam: 03:30 Constitutional: This is a well developed, well nourished patient who is awake, alert, sp3 and in no acute distress. Head/Face: Normocephalic, atraumatic. Eyes: Pupils equal round and reactive to light, extra-ocular motions intact. Lids and lashes normal. Conjunctiva and sclera are non-icteric and not injected. Cornea within normal limits. Periorbital areas with no swelling, redness, or edema. ENT: Nares patent. No nasal discharge, no septal abnormalities noted. External auditory canals are clear. Oropharynx with no redness, swelling, or masses, exudates, or evidence of obstruction, uvula midline. Mucous membranes moist. Neck: Trachea midline, no thyromegaly or masses palpated, and no cervical lymphadenopathy. Supple, full range of motion without nuchal rigidity, or vertebral point tenderness. No Meningismus. Chest/axilla: Normal chest wall appearance and motion. Nontender with no deformity. No lesions are appreciated. Cardiovascular: Regular rate and rhythm with a normal S1 and S2. No gallops, murmurs, or rubs. Normal PMI, no JVD. No pulse deficits. Respiratory: Lungs have equal breath sounds bilaterally, clear to auscultation and percussion. No rales, rhonchi or wheezes noted. No increased work of breathing, no retractions or nasal flaring. Abdomen/GI: Soft, non-tender, with normal bowel sounds. No distension or tympany. No guarding or rebound. No evidence of tenderness throughout. Back: No spinal tenderness. No costovertebral tenderness. Full range of motion. Skin: Warm, dry with normal turgor. Normal color with no rashes, no lesions, and no evidence of cellulitis. Neuro: Awake and alert, GCS 15, oriented to person, place, time, and situation. Cranial nerves II-XII grossly intact. Motor strength 5/5 in all extremities. Sensory grossly intact. Cerebellar exam normal. Normal gait. Psych: Awake, alert, with orientation to person, place and time. Behavior, mood, and affect are within normal limits. Vital Signs: 03:12 BP 176 / 68; Pulse 94; Resp 18 S; Temp 98.4(O); Pulse Ox 99% on R/A; Weight 70.31 kg; ha1 Height 5 ft. 6 in. ; 03:12 Body Mass Index 25.02 (70.31 kg, 167.64 cm) ha1 MDM: 03:23 Patient medically screened. sp3 03:30 Data reviewed: vital signs, nurses notes. ED course: Patient is very stable and is here sp3 really for general guidance on symptomatic treatment. We will give her ketorolac 30 mg intramuscularly and I will discharge her home on diclofenac p.o. I have educated her on NSAID usage and to not take this with any other NSAIDs including ibuprofen. She is to follow-up with her PCP as needed.. Administered Medications: 03:15 Drug: Ketorolac IM 30 mg Route: IM; Site: right ventrogluteal; ha1 03:41 Follow up: Response: No adverse reaction ha1 Disposition Summary: 12/16/22 03:31 Discharge Ordered Location: Home sp3 Condition: Stable sp3 Diagnosis - COVID-19 sp3 Followup: sp3 - With: Private Physician - When: Upon discharge from the Emergency Department - Reason: Continuance of care Discharge Instructions: - Discharge Summary Sheet sp3 - COVID-19 sp3 Forms: - Medication Reconciliation Form sp3 - Thank You Letter sp3 - Antibiotic Education sp3 - Prescription Opioid Use sp3 Prescriptions: - Diclofenac Sodium 75 mg Oral Tablet Sustained Release - take 1 tablet by ORAL route 2 times per day; 30 tablet; Refills: 0, Product sp3 Selection Permitted Signatures: Bari Mendez MD MD sp3 Aysha Rucker RN RN 3 Lisa Juarez RN RN ha1
[2022-12-16] MEDS ORDERED: KETOROLAC 30 MG/ML INJ ONE (03:38)
--- NOTE | 2022-12-16 03:50 | ER ---
Nurse's Notes [facility] Name: Aurea Londono Age: 82 yrs Sex: Female : 1940 Arrival Date: 12/16/2022 Time: 03:05 Bed 5 Private MD: Diagnosis: COVID-19 Presentation: 12/16 03:12 Chief complaint: Patient states: I tested positive for Covid two days ago and I have ha1 body aches. 03:12 Coronavirus screen: Vaccine status:. Ebola Screen: No symptoms or risks identified at ha1 this time. Initial Sepsis Screen: Does the patient meet any 2 criteria? No. Patient's initial sepsis screen is negative. Does the patient have a suspected source of infection? No. Patient's initial sepsis screen is negative. Risk Assessment: Do you want to hurt yourself or someone else? Patient reports no desire to harm self or others. Onset of symptoms was December 16, 2022. 03:12 Method Of Arrival: Ambulatory [facility] 03:12 Acuity: SANGITA 5 ha1 03:43 Chief complaint: Patient states: I tested positive for covid yesterday. I started kd3 having some aching in my joints and i just didn't know what to expect. Coronavirus screen: Vaccine status: Patient reports receiving the 2nd dose of the covid vaccine. Ebola Screen: No symptoms or risks identified at this time. 03:43 Method Of Arrival: Ambulatory kd3 Triage Assessment: 03:12 General: Appears comfortable, Behavior is calm, cooperative. Pain: Complains of pain in ha1 generalized Pain currently is 8 out of 10 on a pain scale. Alleviated by medications. Neuro: Level of Consciousness is awake, alert, obeys commands, Oriented to person, place, time, situation. Cardiovascular: Patient's skin is warm and dry. Respiratory: Airway is patent Respiratory effort is even, labored, Respiratory pattern is regular, symmetrical. GI: No signs and/or symptoms were reported involving the gastrointestinal system. : No signs and/or symptoms were reported regarding the genitourinary system. Musculoskeletal: Circulation, motion, and sensation intact. Range of motion: intact in all extremities. 03:45 General: Appears in no apparent distress. Behavior is calm, cooperative. Pain: kd3 Complains of pain in body aches. Neuro: Level of Consciousness is awake, alert, obeys commands, Oriented to person, place, time, situation. Cardiovascular: Respiratory: Airway is patent Trachea midline Respiratory effort is even, unlabored, Respiratory pattern is regular, symmetrical. Historical: - Allergies: 03:12 No Known Allergies; ha1 - Home Meds: 03:12 amlodipine oral [Active]; ha1 - PMHx: 03:45 "Left arm blockage"; arterial sclerosis; Depression; Anemia; Hyperlipidemia; kd3 Hypertension; 03:12 "Left arm blockage"; Anemia; arterial sclerosis; Depression; Hyperlipidemia; ha1 Hypertension; - Immunization history:: Adult Immunizations up to date, Adult Immunizations up to date. - Social history:: Smoking status: Patient denies any tobacco usage or history of. Smoking status: unknown. Screenin:12 Abuse screen: Denies threats or abuse. Denies injuries from another. Nutritional ha1 screening: No deficits noted. Tuberculosis screening: No symptoms or risk factors identified. 03:12 [facility] ED Fall Risk Assessment (Adult) History of falling in the last 3 months, ha1 including since admission No falls in past 3 months (0 pts) Confusion or Disorientation No (0 pts) Intoxicated or Sedated No (0 pts) Impaired Gait No (0 pts) Mobility Assist Device Used No (0 pt) Altered Elimination No (0 pt) Score/Fall Risk Level 0 - 2 = Low Risk Oriented to surroundings, Maintained a safe environment, Hourly rounding (assess needs \\T\\ fall precautionary measures) done. Assessment: 03:12 Reassessment: see triage assessment. ha1 Vital Signs: 03:12 BP 176 / 68; Pulse 94; Resp 18 S; Temp 98.4(O); Pulse Ox 99% on R/A; Weight 70.31 kg; ha1 Height 5 ft. 6 in. ; 03:12 Body Mass Index 25.02 (70.31 kg, 167.64 cm) ha1 ED Course: 03:11 Patient arrived in ED. ag3 03:12 Patient has correct armband on for positive identification. Bed in low position. Call ha1 light in reach. Side rails up X 1. 03:12 No provider procedures requiring assistance completed. Patient did not have IV access ha1 during this emergency room visit. 03:17 Bari Mendez MD is Attending Physician. sp3 03:44 Triage completed. ha1 03:45 Arm band placed on right wrist. kd3 Administered Medications: 03:15 Drug: Ketorolac IM 30 mg Route: IM; Site: right ventrogluteal; ha1 03:41 Follow up: Response: No adverse reaction ha1 Medication: 03:12 VIS not applicable for this client. ha1 Outcome: 03:12 Discharged to home ambulatory. ha1 03:12 Condition: stable 03:12 Discharge instructions given to patient, Instructed on discharge instructions, follow up and referral plans. medication usage, Demonstrated understanding of instructions, follow-up care, medications, Prescriptions given X 1. 03:31 Discharge ordered by . sp3 03:49 Patient left the ED. ha1 Signatures: Neelima Barboza3 Bari Mendez MD MD sp3 Aysha Rucker RN RN kd3 Lisa Juarez RN RN ha1
[2022-12-16 04:15] VITALS: BP 176/68; TEMP 98.4; O2SAT 99
== END 2022-12-16 03:49 | disposition home or self-care (01) ==
LOC: ER 03:05
DX: U07.1 COVID-19 (principal)